=== PATIENT | male | born 1945 | race Caucasian/White ===

== ENCOUNTER 2016-05-13 05:29 | Inpatient (IN) | payer MEDICARE, OTHER ==
[2016-05-02 11:49] LABS: HEMATOCRIT 32.6 % (37.9-51.0); HEMOGLOBIN 10.2 g/dL (13.5-17.0); MEAN CORPUSCULAR HEMOGLOBIN 27.6 pg (27.0-33.4); MEAN CORPUSCULAR HGB CONC 31.3 g/dL (32.0-36.0); MEAN CORPUSCULAR VOLUME 88 fl (80-97); RED BLOOD COUNT 3.68 10^6/uL (4.35-5.55); RED CELL DISTRIBUTION WIDTH 13.7 % (11.5-14.0); WHITE BLOOD COUNT 7.5 10^3/uL (4.0-10.5)
[2016-05-02 11:55] LABS: APPEARANCE,URINE CLEAR; BILIRUBIN,URINE NEGATIVE (NEGATIVE); GLUCOSE, URINE NEGATIVE (NEGATIVE); KETONES,URINE NEGATIVE (NEGATIVE); LEUKOCYTE ESTERASE,URINE NEGATIVE (NEGATIVE); NITRITE,URINE NEGATIVE (NEGATIVE); PROTEIN,URINE NEGATIVE (NEGATIVE); URINE SPECIFIC GRAVITY 1.013; UROBILINOGEN,URINE NEGATIVE mg/dL (<2.0)
[2016-05-02 12:17] LABS: ANION GAP 12 (5-19); BLOOD UREA NITROGEN 29 mg/dL (7-20); CALCIUM 10.6 mg/dL (8.4-10.2); CARBON DIOXIDE 26 mmol/L (22-30); CHLORIDE 104 mmol/L (98-107); GLUCOSE 87 mg/dL (75-110); POTASSIUM 5.8 mmol/L (3.6-5.0); SODIUM 142.2 mmol/L (137-145)
[~2016-05-13 05:29] MED LIST: BUPIVACAINE INJ/PF LIPOSOME/PF 266 MG/20 ML SDV INFIL PRN; CEFAZOLIN 1 GM/D5W RTU 1 GM/50 ML RTUPB IV PRN; CEFAZOLIN INJ 1 GM VIAL IV PRN; IBUPROFEN 800 MG in NORMAL SALINE 250 ML IV PRN; LACTATED RINGERS 1000 ML IV PRN; LANSOPRAZOLE 15 MG TAB.RAP.DR PO PRN; LIDOCAINE 0.5% INJ-PF (5 MG/ML) 50 ML SDV SUBCUT PRN; OXYCODONE HCL IR 5 MG TABLET PO PRN; OXYCODONE HCL SR 10 MG TABLET PO PRN; SCOPOLAMINE HYDROBROMIDE 1.5 MG PATCH.TD72 TD PRN; VANCOMYCIN HCL 1,000 MG in DEXTROSE 5%-WATER 250 ML IV PRN
[2016-05-13 06:39] LABS: POTASSIUM 5.3 mmol/L (3.6-5.0)
[2016-05-13] MEDS ORDERED: THROMBIN (BOVINE) TOPICAL 20000 UNIT VIAL ONE (06:49)
[2016-05-13] MEDS ORDERED: THROMBIN (BOVINE) 5000 UNIT EPITAXIS KIT ONE (06:49)
[2016-05-13] MEDS ORDERED: BUPIVACAINE INJ/PF LIPOSOME/PF 266 MG/20 ML SDV ONE (06:49)
[2016-05-13] MEDS ORDERED: HYDROMORPHONE HCL INJ/PF 2 MG/ML AMPULE ONE ×2 (06:50→09:52)
[2016-05-13] MEDS ORDERED: FENTANYL CITRATE INJ/PF 250 MCG/5 ML AMPULE ONE (06:50)
[2016-05-13] MEDS ORDERED: MIDAZOLAM 2 MG/2 ML INJ ONE (06:50)
[2016-05-13] MEDS ORDERED: PROPOFOL INJ 200 MG/20 ML VIAL IV ONE (06:51)
[2016-05-13] MEDS ORDERED: VANCOMYCIN HCL INJ 1000 MG VIAL ONE (07:41)
[2016-05-13] MEDS ORDERED: FENTANYL CITRATE INJ/PF 100 MCG/2 ML AMPUL IV PRN ×3 (08:50)
[2016-05-13] MEDS ORDERED: MORPHINE SULFATE 10 MG/ML INJ IV PRN ×3 (08:50→09:11)
[2016-05-13] MEDS ORDERED: DIPHENHYDRAMINE HCL 50 MG/ML VIAL IV PRN ×2 (08:50→09:11)
[2016-05-13] MEDS ORDERED: OXYCODONE-ACETAMINOPHEN 5-325 MG TABLET PO PRN ×2 (08:50)
[2016-05-13] MEDS ORDERED: PROMETHAZINE HCL INJ 25 MG/1 ML VIAL IV PRN (08:50)
[2016-05-13] MEDS ORDERED: MEPERIDINE HCL/PF INJ 25 MG/1 ML DISP.SYRIN IV PRN (08:50)
[2016-05-13] MEDS ORDERED: RINGERS SOLUTION,LACTATED 1,000 ML IV PRN (09:11)
[2016-05-13] MEDS ORDERED: ONDANSETRON 4 MG TAB.RAPDIS PO PRN (09:11)
[2016-05-13] MEDS ORDERED: ZOLPIDEM TARTRATE 5 MG TABLET PO PRN (09:11)
[2016-05-13] MEDS ORDERED: MAG HYDROX/AL HYDROX/SIMETH SUSP 30 ML UDCUP PO PRN (09:11)
[2016-05-13] MEDS ORDERED: ACETAMINOPHEN 325 MG TABLET PO PRN (09:11)
[2016-05-13] MEDS ORDERED: ONDANSETRON HCL INJ/PF 4 MG/2 ML SDV IV PRN (09:11)
--- NOTE | 2016-05-13 09:28 | Operative Report ---
Operative Report DATE OF SURGERY: 05/13/16 PREOPERATIVE DIAGNOSIS: Infected Knee arthroplasty OPERATION: Resection arthroplasty and implantation of antibiotic spacer SURGEON: SUZETTE HOGAN ANESTHESIA: GA TISSUE REMOVED OR ALTERED: Implants to pathology. Tissue to pathology. Cultures 2 to microbiology ESTIMATED BLOOD LOSS: 150 PROCEDURE: With the patient supine operative table the right looks terms prepped and draped in a sterile fashion. A standard midline median parapatellar approach to the knee is taken. An elongated quadriceps snip was performed to lateralize the patella. The polyethylene spacers easily removed using an osteotome. The tibial component is disimpacted using a mallet. The femoral component was loosened using a TPS saw. This removes the femoral condyles with the medullary cone and stem remaining. A TPS saw was then along the edges of the cone to loosen this. Vice mill roll rewinder is then used to retrieve the medullary cone and the femoral stem. There is little if any bone loss on either side of the implant. The existing patellar component is then removed using a TPS saw. At this point the wound is marita irrigated and debrided. A 10 x 270 mm titanium tibial nail is then placed across the knee joint into the femoral canal as well as the tibial canal. This is cemented in place using a combination of tobramycin cement with a gram of vancomycin added. The wound is then closures interrupted PDS followed by flaco. A sterile dressing is applied and the patient's returned to PACU in satisfactory condition
[2016-05-13] MEDS ORDERED: HYDROMORPHONE HCL INJ/PF 2 MG/ML AMPULE IV ONE (09:55)
[2016-05-13] MEDS ORDERED: CINNAMON BARK PO SCH (10:00)
[2016-05-13] MEDS ORDERED: VANCOMYCIN HCL 1,000 MG in DEXTROSE 5%-WATER 250 ML IV SCH (10:00)
[2016-05-13] MEDS ORDERED: RIFAMPIN 300 MG CAPSULE PO ONE (11:00)
[2016-05-13] MEDS: SENNOSIDES/DOCUSATE 8.6-50 MG 1 EACH TABLET PO SCH ×2 (11:17→17:23)
[2016-05-13] MEDS: FERROUS SULFATE 325 MG TABLET PO SCH ×2 (11:17→17:23)
[2016-05-13] MEDS: PREGABALIN 75 MG CAPSULE PO SCH ×2 (11:17→17:23)
[2016-05-13] MEDS: OXYCODONE HCL SR 10 MG TABLET PO SCH ×2 (11:17→21:21)
[2016-05-13] MEDS: PRENATAL VITAMIN W-O CA NO5/FE FUMARATE/FA CAPSULE PO SCH (11:18)
[2016-05-13] MEDS: MORPHINE SULFATE 10 MG/ML INJ IV PRN ×3 (12:05→16:02)
[2016-05-13] MEDS ORDERED: GLYCOPYRROLATE INJ 0.4 MG/2 ML VIAL ONE (12:51)
[2016-05-13] MEDS ORDERED: LIDOCAINE 2% INJ-PF (20 MG/ML) 10 ML AMPUL ONE (12:51)
[2016-05-13] MEDS ORDERED: NEOSTIGMINE METHYLSULFATE 10 MG/10 ML VIAL ONE (12:51)
[2016-05-13] MEDS ORDERED: VECURONIUM BROMIDE INJ 10 MG VIAL IV ONE (12:51)
[2016-05-13] MEDS ORDERED: SUCCINYLCHOLINE CHLORIDE INJ 200 MG/10 ML VIAL ONE (12:51)
[2016-05-13] MEDS ORDERED: ONDANSETRON HCL INJ/PF 4 MG/2 ML SDV ONE (12:51)
[2016-05-13] MEDS ORDERED: PHENYLEPHRINE HCL INJ/PF 10 MG/1 ML SDV ONE (12:51)
[2016-05-13] MEDS: IBUPROFEN 800 MG in NORMAL SALINE 250 ML IV SCH ×2 (13:27→21:54)
[2016-05-13] MEDS: OXYCODONE HCL IR 5 MG TABLET PO PRN (13:27)
[2016-05-13] MEDS: VANCOMYCIN HCL 2,000 MG in DEXTROSE 5%-WATER 500 ML IV SCH (17:23)
[2016-05-13] MEDS: CYCLOBENZAPRINE HCL 10 MG TABLET PO PRN (17:23)
[2016-05-13] MEDS: RIFAMPIN 300 MG CAPSULE PO SCH (17:23)
[2016-05-13] MEDS: FINASTERIDE 5 MG TABLET PO SCH (17:23)
[2016-05-13] MEDS ORDERED: VANCOMYCIN HCL 1,000 MG in DEXTROSE 5%-WATER 250 ML IV ONE (21:11)
[2016-05-13] MEDS: SIMVASTATIN 10 MG TABLET PO SCH (21:23)
[2016-05-13] MEDS: FENOFIBRATE NANOCRYSTALLIZED 145 MG TABLET PO SCH (21:24)
[2016-05-13] MEDS: PRAMIPEXOLE DI-HCL 0.25 MG TABLET PO SCH (21:24)
[2016-05-13] MEDS: TAMSULOSIN HCL 0.4 MG CAP.SR.24H PO SCH (21:25)
[2016-05-14] MEDS: MORPHINE SULFATE 10 MG/ML INJ IV PRN ×4 (04:22→20:33)
[2016-05-14] MEDS: LANSOPRAZOLE 30 MG TAB.RAP.DR PO SCH (06:14)
[2016-05-14 06:50] LABS: HEMATOCRIT 25.2 % (37.9-51.0); HEMOGLOBIN 8.4 g/dL (13.5-17.0); MEAN CORPUSCULAR HEMOGLOBIN 28.7 pg (27.0-33.4); MEAN CORPUSCULAR HGB CONC 33.4 g/dL (32.0-36.0); MEAN CORPUSCULAR VOLUME 86 fl (80-97); RED BLOOD COUNT 2.94 10^6/uL (4.35-5.55); RED CELL DISTRIBUTION WIDTH 13.4 % (11.5-14.0); WHITE BLOOD COUNT 9.2 10^3/uL (4.0-10.5)
[2016-05-14 07:12] LABS: ANION GAP 9 (5-19); BLOOD UREA NITROGEN 32 mg/dL (7-20); CARBON DIOXIDE 25 mmol/L (22-30); CHLORIDE 105 mmol/L (98-107); CREATININE RESULT 1.07 mg/dL (0.52-1.25); GLUCOSE 100 mg/dL (75-110); POTASSIUM 5.1 mmol/L (3.6-5.0); SODIUM 139.1 mmol/L (137-145)
[2016-05-14] MEDS: OXYCODONE HCL IR 5 MG TABLET PO PRN (07:33)
[2016-05-14] MEDS ORDERED: (PENDING PHARMACY ID) (Telmisartan [Micardis 80 Mg Tablet] 80 MG) PO SCH (08:00)
[2016-05-14] MEDS ORDERED: (PENDING PHARMACY ID) (Esomeprazole Mag Trihydrate [Nexium] 40 MG) PO SCH (08:00)
[2016-05-14] MEDS: FUROSEMIDE 40 MG TABLET PO SCH (08:25)
[2016-05-14] MEDS: LEVOTHYROXINE SODIUM 0.05 MG TABLET PO SCH (08:26)
[2016-05-14] MEDS: LOSARTAN POTASSIUM 50 MG TABLET PO SCH (08:26)
[2016-05-14] MEDS: FERROUS SULFATE 325 MG TABLET PO SCH ×2 (09:28→17:45)
[2016-05-14] MEDS: RIFAMPIN 300 MG CAPSULE PO SCH ×2 (09:28→17:45)
[2016-05-14] MEDS: PRENATAL VITAMIN W-O CA NO5/FE FUMARATE/FA CAPSULE PO SCH (09:28)
[2016-05-14] MEDS: ASPIRIN 325 MG TABLET, ENT COATED PO SCH (09:28)
[2016-05-14] MEDS: PREGABALIN 75 MG CAPSULE PO SCH ×2 (09:28→17:44)
[2016-05-14] MEDS: SENNOSIDES/DOCUSATE 8.6-50 MG 1 EACH TABLET PO SCH ×2 (09:28→17:45)
[2016-05-14] MEDS: OXYCODONE HCL SR 10 MG TABLET PO SCH ×2 (09:29→21:13)
[2016-05-14] MEDS: VANCOMYCIN HCL 2,000 MG in DEXTROSE 5%-WATER 500 ML IV SCH ×3 (10:25→23:48)
[2016-05-14] MEDS: IBUPROFEN 800 MG in NORMAL SALINE 250 ML IV SCH ×3 (10:25→21:36)
[2016-05-14] MEDS: MORPHINE SULFATE 10 MG/ML INJ IM PRN (11:18)
[2016-05-14] MEDS: FINASTERIDE 5 MG TABLET PO SCH (17:45)
[2016-05-14] MEDS: FENOFIBRATE NANOCRYSTALLIZED 145 MG TABLET PO SCH (21:13)
[2016-05-14] MEDS: TAMSULOSIN HCL 0.4 MG CAP.SR.24H PO SCH (21:13)
[2016-05-14] MEDS: PRAMIPEXOLE DI-HCL 0.25 MG TABLET PO SCH (21:14)
[2016-05-14] MEDS: SIMVASTATIN 10 MG TABLET PO SCH (21:14)
[2016-05-14] MEDS: NORMAL SALINE 10 ML SDV (SCHEDULED) IV SCH (21:14)
[2016-05-15] MEDS: CYCLOBENZAPRINE HCL 10 MG TABLET PO PRN (04:25)
[2016-05-15] MEDS: IBUPROFEN 800 MG in NORMAL SALINE 250 ML IV SCH ×3 (05:20→21:44)
[2016-05-15] MEDS: LANSOPRAZOLE 30 MG TAB.RAP.DR PO SCH (05:20)
[2016-05-15 06:36] LABS: HGB HCT DIFFERENCE -0.1; MEAN CORPUSCULAR HEMOGLOBIN 28.8 pg (27.0-33.4); MEAN CORPUSCULAR HGB CONC 33.1 g/dL (32.0-36.0); MEAN CORPUSCULAR VOLUME 87 fl (80-97); RED BLOOD COUNT 2.19 10^6/uL (4.35-5.55); RED CELL DISTRIBUTION WIDTH 13.4 % (11.5-14.0); WHITE BLOOD COUNT 7.8 10^3/uL (4.0-10.5)
[2016-05-15] MEDS: MORPHINE SULFATE 10 MG/ML INJ IV PRN ×2 (06:53→14:49)
[2016-05-15 06:56] LABS: HEMOGLOBIN 6.3 g/dL (13.5-17.0)
[2016-05-15] MEDS: SENNOSIDES/DOCUSATE 8.6-50 MG 1 EACH TABLET PO SCH ×2 (09:22→17:21)
[2016-05-15] MEDS: ASPIRIN 325 MG TABLET, ENT COATED PO SCH (09:22)
[2016-05-15] MEDS: FERROUS SULFATE 325 MG TABLET PO SCH ×2 (09:22→17:21)
[2016-05-15] MEDS: PREGABALIN 75 MG CAPSULE PO SCH ×2 (09:22→17:22)
[2016-05-15] MEDS: PRENATAL VITAMIN W-O CA NO5/FE FUMARATE/FA CAPSULE PO SCH (09:22)
[2016-05-15] MEDS: RIFAMPIN 300 MG CAPSULE PO SCH ×2 (09:23→17:22)
[2016-05-15] MEDS: FUROSEMIDE 40 MG TABLET PO SCH (09:29)
[2016-05-15] MEDS: LEVOTHYROXINE SODIUM 0.05 MG TABLET PO SCH (09:30)
[2016-05-15] MEDS: LOSARTAN POTASSIUM 50 MG TABLET PO SCH (09:31)
[2016-05-15] MEDS: NORMAL SALINE 10 ML SDV (SCHEDULED) IV SCH ×2 (09:32→21:44)
[2016-05-15] MEDS: OXYCODONE HCL IR 5 MG TABLET PO PRN ×2 (11:38→19:59)
[2016-05-15] MEDS: VANCOMYCIN HCL 2,000 MG in DEXTROSE 5%-WATER 500 ML IV SCH (12:42)
[2016-05-15 13:01] LABS: CREATININE RESULT 0.96 mg/dL (0.52-1.25)
[2016-05-15 15:06] LABS: FOLATE > 20.00 ng/mL (>2.76)
[2016-05-15] MEDS: FINASTERIDE 5 MG TABLET PO SCH (17:22)
[2016-05-15] MEDS ORDERED: CYANOCOBALAMIN (VITAMIN B-12) 1,000 MCG TABLET PO ONE (19:00)
--- NOTE | 2016-05-15 19:06 | PDOC CONSULTATION ---
Consultation Consult Date: 05/15/16 Attending physician:: SUZETTE HOGAN Consult reason:: Antibiotic management History of Present Illness Admission Date/PCP: 05/13/16 05:29 SHADE GARCÍA MD Patient complains of: Infected prosthesis right knee History of Present Illness: JAYLON GREEN is a 71 year old male With a known history of infected prosthesis right knee underwent on 05/13/2016 resection arthroplasty and implantation of antibiotic spacer Culture and sensitivity of the right knee showed no growth after 2 days Patient in the past had infection of the left knee with MSSA There was no history of prior MRSA infection Hospitalist was consulted for antibiotic management; PICC line was inserted Past Medical History Cardiac Medical History: Reports: Hyperlipidema - meds x 20.5 years, Hypertension - meds x 20 years, Pulmonary Embolism - 02/2015 Denies: Atrial Fibrillation, Congestive Heart Failure, Coronary Artery Disease, Myocardial Infarction, Peripheral Vascular Disease, Heart Murmur Pulmonary Medical History: Reports: Chronic Obstructive Pulmonary Disease (COPD ) - per CXR 05/05/14, Pneumonia - 04/1993 Denies: Asthma, Bronchitis, Respiratory Failure, Sleep Apnea, Tuberculosis Neurological Medical History: Denies: Seizures Endocrine Medical History: Reports: Hypothyroidism - meds x1 year Denies: Hyperthyroidism Renal/ Medical History: Denies: End Stage Renal Disease Malignancy Medical History: Denies: Leukemia, Lung Cancer GI Medical History: Reports: Gastroesophageal Reflux Disease - meds x 10.5 years Denies: Crohn's Disease, Hiatal Hernia Musculoskeltal Medical History: Reports: Arthritis Denies: Fibromyalgia Psychiatric Medical History: Denies: Dementia Hematology: Reports: Anemia - hx blood transfusions, Other - Multiple blood transfusions Denies: Hemophilia, Sickle Cell Disease Infectious Medical History: Denies: HIV Past Surgical History Past Surgical History: Reports: Orthopedic Surgery - bilateral knee replacement , right rotator cuff Denies: Appendectomy, Cholecystectomy, Colostomy, Coronary Artery Bypass Graft, Gastric Bypass Surgery, Herniorrhaphy, Pacemaker, Tonsillectomy Social History Smoking Status: Former Smoker Frequency of Alcohol Use: None Hx Recreational Drug Use: No Drugs: None Hx Prescription Drug Abuse: No - Advance Directive Resuscitation Status: Do Not Resuscitate Surrogate healthcare decision maker:: His Edith Family History Family History: Hypertension Parental Family History Reviewed: Yes - father of old age at 95; mother had asthma Children Family History Reviewed: Yes - Diabetes and hypertension Sibling(s) Family History Reviewed.: Yes - No siblings Medication/Allergy Home Medications: Cyclobenzaprine HCl [Flexeril 10 mg Tablet] 10 mg PO TIDP PRN 08/08/13 Fenofibrate Nanocrystallized [Tricor 145 mg Tablet] 145 mg PO QHS 08/08/13 Gluc [place]/Chondro [place] A/Vit C/Mn [Glucosamine 1,500 Complex Cap] 1 each PO QAM Hydrocodone Bit/Acetaminophen [Hydrocodon-Acetaminophn 10-325] 1 each PO QID PRN 08/08/13 Multivitamin/Iron/Folic Acid [Centrum Complete Multivit Tab] 1 each PO QAM 08/08 Pramipexole Di-HCl [Mirapex 0.25 mg Tablet] 0.25 mg PO QHS 08/08/13 Simvastatin [Zocor 10 mg Tablet] 10 mg PO QHS 08/08/13 Meloxicam [Mobic 15 mg Tablet] 15 mg PO DAILY 03/11/15 Ceftriaxone 2 gm/D5w RTU [Rocephin RTU 2 gm/D5w 50 ml Premix Bag] 2 gm IV Q24H # 45 rtupb 03/15/15 Rifampin [Rimactane] 300 mg PO BID #0 capsule 03/15/15 Tramadol HCl [Ultram] 50 mg PO TID 03/17/15 Telmisartan [Micardis 80 mg Tablet] 80 mg PO QAM 03/18/15 Cyclobenzaprine HCl [Flexeril 10 mg Tablet] 10 mg PO TIDP PRN #30 tablet Esomeprazole Mag Trihydrate [Nexium] 40 mg PO QAM 06/07/15 Furosemide [Lasix] 1 tab PO QAM 07/28/15 Hydrocodone Bit/Acetaminophen [Hydrocodon-Acetaminophn 10-325] 1 - 2 each PO TID PRN 07/28/15 Amox Tr/Potassium Clavulanate [Augmentin 875-125 mg Tablet] 1 tab PO QPM Cinnamon Bark [Cinnamon Bark 500 mg Capsule] 1 cap PO BID 04/30/16 Ferrous Sulfate [Feosol] 325 mg PO BID 04/30/16 Finasteride 5 mg PO QPM 04/30/16 Furosemide [Lasix 40 mg Tablet] 40 mg PO QAM 04/30/16 Levothyroxine Sodium 50 mcg PO QAM 04/30/16 Meloxicam [Mobic 15 mg Tablet] 15 mg PO QAM 04/30/16 Niacin (Inositol Niacinate) [Niacin 500 mg Capsule] 500 mg PO BID 04/30/16 [place]-3S/Dha/Epa/Fish Oil/D3 [Fish Fru-Ojupx-8-Vit D Softgel] 1 each PO QAM Tamsulosin HCl [Flomax] 0.8 mg PO QHS 04/30/16 Tramadol HCl [Ultram] 50 - 100 mg PO TID 04/30/16 Allergies/Adverse Reactions: No Known Allergies Allergy (Verified 03/11/15 21:25) Review of Systems Constitutional: PRESENT: fatigue Eyes: ABSENT: as per HPI, visual disturbances, other Ears: ABSENT: hearing changes Respiratory: ABSENT: cough, hemoptysis Gastrointestinal: ABSENT: abdominal pain, constipation, diarrhea, hematemesis, hematochezia, nausea, vomiting Genitourinary: ABSENT: dysuria, hematuria Musculoskeletal: PRESENT: other - Pain right knee Neurological: ABSENT: abnormal gait, abnormal speech, confusion, dizziness, focal weakness, syncope Psychiatric: ABSENT: anxiety, depression, homidical ideation, suicidal ideation Endocrine: ABSENT: cold intolerance, heat intolerance, polydipsia, polyuria Physical Exam Vital Signs: Temp Pulse Resp BP Pulse Ox 98.1 F 106 H 18 103/71 100 05/15/16 18:20 05/15/16 18:20 05/15/16 18:20 05/15/16 18:20 05/15/16 18:20 Intake & Output 05/14/16 05/15/16 05/16/16 00:59 00:59 00:59 Intake Total 5115 6470 1060 Output Total 5000 5850 3000 Balance 115 093 -6030 General appearance: PRESENT: no acute distress, cooperative Head exam: PRESENT: atraumatic, normocephalic Eye exam: PRESENT: conjunctiva pink, EOMI, PERRLA. ABSENT: scleral icterus Neck exam: ABSENT: carotid bruit, JVD, lymphadenopathy, thyromegaly Respiratory exam: PRESENT: clear to auscultation mark. ABSENT: rales, rhonchi, wheezes Cardiovascular exam: PRESENT: RRR. ABSENT: diastolic murmur, rubs, systolic murmur Pulses: PRESENT: normal dorsalis pedis pul GI/Abdominal exam: PRESENT: normal bowel sounds, soft. ABSENT: distended, guarding, mass, organolmegaly, rebound, tenderness Extremities exam: PRESENT: other - Left lower extremities in not be a long knee immobilizer Neurological exam: PRESENT: alert, awake, oriented to person, oriented to place , oriented to time, oriented to situation, CN II-XII grossly intact. ABSENT: motor sensory deficit Psychiatric exam: PRESENT: appropriate affect, normal mood. ABSENT: homicidal ideation, suicidal ideation Results Laboratory Results: 05/15/16 06:00 05/15/16 12:11 05/13/16 05/15/16 05/15/16 06:15 06:00 12:11 WBC 7.8 RBC 2.19 L Hgb 6.3 L D Hct 19.0 L MCV 87 MCH 28.8 MCHC 33.1 RDW 13.4 Plt Count 335 Creatinine 0.96 Est GFR ( Amer) > 60 Est GFR (Non-Af Amer) > 60 Iron TIBC % Saturation Ferritin Vitamin B12 Folate Blood Type O POSITIVE Antibody Screen NEGATIVE 05/15/16 12:11 WBC RBC Hgb Hct MCV MCH MCHC RDW Plt Count Creatinine Est GFR ( Amer) Est GFR (Non-Af Amer) Iron 20 L TIBC 222 L % Saturation 9 Ferritin 1700.00 H Vitamin B12 319.0 Folate > 20.00 Blood Type Antibody Screen Impressions: Knee X-Ray 05/13/16 09:13 IMPRESSION: Post hardware removal from the right knee, placement of a small caliber intramedullary nail which fuses the right knee joint. Diffuse heterotopic ossification around the knee joint periphery, periosteal new bone along the distal femur and proximal tibia. Guidance Fluoroscopy 05/14/16 00:00 IMPRESSION: SUCCESSFUL PLACEMENT OF A 5 FR DUAL LUMEN 47 CM PICC IN THE left basilic VEIN. Interventional Vascular Procedure 05/14/16 00:00 IMPRESSION: SUCCESSFUL PLACEMENT OF A 5 FR DUAL LUMEN 47 CM PICC IN THE left basilic VEIN. PICC Line Insertion 05/14/16 07:29 IMPRESSION: SUCCESSFUL PLACEMENT OF A 5 FR DUAL LUMEN 47 CM PICC IN THE left basilic VEIN. Assessment & Plan - Diagnosis (1) Sideroblastic anemia Is this a current diagnosis for this admission?: YesPlan: Serum ferritin is [address] Leonardo to consult Dr. Leonardo has been involved with patient Patient's care in the past (2) Vitamin B 12 deficiency Plan: Vitamin B-12 level is 312 We will initiate treatment with vitamin B-12 thousand micrograms daily (3) Infected prosthetic knee joint Is this a current diagnosis for this admission?: YesPlan: There is no evidence of an MRSA infection at this time Cultures were negative We spoke with infectious disease at [facility] and they do recommend treatment for MSSA We will initiate treatment with ceftriaxone 2 g IV piggyback daily (4) Acute blood loss anemia Is this a current diagnosis for this admission?: YesPlan: Patient was transfused 2 units of packed red cells follow-up CBC in a.m. - Time Time Spent with patient: Thank you for the consultation we will follow with you Hematology consult was requested Time Spent: 50 to 70 Minutes
[2016-05-15] MEDS: FENOFIBRATE NANOCRYSTALLIZED 145 MG TABLET PO SCH (21:44)
[2016-05-15] MEDS: SIMVASTATIN 10 MG TABLET PO SCH (21:44)
[2016-05-15] MEDS: TAMSULOSIN HCL 0.4 MG CAP.SR.24H PO SCH (21:44)
[2016-05-15] MEDS: PRAMIPEXOLE DI-HCL 0.25 MG TABLET PO SCH (21:44)
[2016-05-15 21:46] LABS: ABSOLUTE BASOPHILS # (AUTO) 0.1 10^3/uL (0.0-0.2); ABSOLUTE LYMPHOCYTES (AUTO) 1.4 10^3/uL (0.5-4.7); ABSOLUTE MONOCYTES (AUTO) 1.3 10^3/uL (0.1-1.4); ABSOLUTE NEUT (AUTO) 5.7 10^3/uL (1.7-8.2); BASOPHILS % (AUTO) 0.8 % (0-2); EOSINOPHILS % (AUTO) 10.5 % (0-6); HEMATOCRIT 26.2 % (37.9-51.0); HGB HCT DIFFERENCE 0.5; LYMPHOCYTES % (AUTO) 14.6 % (13-45); MEAN CORPUSCULAR HGB CONC 33.9 g/dL (32.0-36.0); MEAN CORPUSCULAR VOLUME 86 fl (80-97); RED BLOOD COUNT 3.06 10^6/uL (4.35-5.55); RED CELL DISTRIBUTION WIDTH 13.1 % (11.5-14.0); SEGMENTED NEUTROPHILS % (AUTO) 60.1 % (42-78); WHITE BLOOD COUNT 9.5 10^3/uL (4.0-10.5)
[2016-05-15 21:57] LABS: HEMOGLOBIN 8.9 g/dL (13.5-17.0)
[2016-05-16] MEDS: IBUPROFEN 800 MG in NORMAL SALINE 250 ML IV SCH (05:39)
[2016-05-16] MEDS: LANSOPRAZOLE 30 MG TAB.RAP.DR PO SCH (05:39)
[2016-05-16 06:28] LABS: HEMATOCRIT 26.8 % (37.9-51.0); HGB HCT DIFFERENCE 0.2; MEAN CORPUSCULAR HGB CONC 33.7 g/dL (32.0-36.0); MEAN CORPUSCULAR VOLUME 86 fl (80-97); RED BLOOD COUNT 3.11 10^6/uL (4.35-5.55); RED CELL DISTRIBUTION WIDTH 13.3 % (11.5-14.0); WHITE BLOOD COUNT 9.8 10^3/uL (4.0-10.5)
--- NOTE | 2016-05-16 06:49 | PDOC PROGRESS REPORT ---
Subjective Progress Note for:: 05/16/16 Subjective:: Patient complaints of pain associated with motion Physical Exam Vital Signs: Temp Pulse Resp BP Pulse Ox 36.8 C 100 17 112/67 99 05/16/16 04:54 05/16/16 04:54 05/16/16 04:54 05/16/16 04:54 05/16/16 04:54 Intake & Output 05/14/16 05/15/16 05/16/16 06:59 06:59 06:59 Intake Total 7015 4570 2110 Output Total 6900 4750 3100 Balance 115 -180 -990 Weight 136.4 kg General appearance: PRESENT: mild distress Head exam: PRESENT: normocephalic Eye exam: PRESENT: EOMI Respiratory exam: PRESENT: unlabored Cardiovascular exam: PRESENT: RRR Pulses: PRESENT: +1 pedal pulses bilateral Vascular exam: PRESENT: normal capillary refill GI/Abdominal exam: PRESENT: soft Rectal exam: PRESENT: deferred Extremities exam: PRESENT: other - Dressing was changed yesterday. Remains clean dry and intact. Distal neurovascular examination the foot is intact. Neurological exam: PRESENT: alert, awake, oriented to person, oriented to place , oriented to time, oriented to situation, CN II-XII grossly intact. ABSENT: motor sensory deficit Psychiatric exam: PRESENT: appropriate affect, normal mood. ABSENT: homicidal ideation, suicidal ideation Results Laboratory Results: 05/16/16 05:30 05/15/16 12:11 05/13/16 05/15/16 05/15/16 06:15 06:00 12:11 WBC 7.8 RBC 2.19 L Hgb 6.3 L D Hct 19.0 L MCV 87 MCH 28.8 MCHC 33.1 RDW 13.4 Plt Count 335 Seg Neutrophils % Lymphocytes % Monocytes % Eosinophils % Basophils % Absolute Neutrophils Absolute Lymphocytes Absolute Monocytes Absolute Eosinophils Absolute Basophils Creatinine 0.96 Est GFR ( Amer) > 60 Est GFR (Non-Af Amer) > 60 Iron TIBC % Saturation Ferritin Vitamin B12 Folate Blood Type O POSITIVE Antibody Screen NEGATIVE 05/15/16 05/15/16 05/16/16 12:11 21:00 05:30 WBC 9.5 9.8 RBC 3.06 L 3.11 L Hgb 8.9 L D 9.0 L Hct 26.2 L 26.8 L MCV 86 86 MCH 29.0 29.0 MCHC 33.9 33.7 RDW 13.1 13.3 Plt Count 398 434 Seg Neutrophils % 60.1 Lymphocytes % 14.6 Monocytes % 14.0 H Eosinophils % 10.5 H Basophils % 0.8 Absolute Neutrophils 5.7 Absolute Lymphocytes 1.4 Absolute Monocytes 1.3 Absolute Eosinophils 1.0 H Absolute Basophils 0.1 Creatinine Est GFR ( Amer) Est GFR (Non-Af Amer) Iron 20 L TIBC 222 L % Saturation 9 Ferritin 1700.00 H Vitamin B12 319.0 Folate > 20.00 Blood Type Antibody Screen Impressions: Knee X-Ray 05/13/16 09:13 IMPRESSION: Post hardware removal from the right knee, placement of a small caliber intramedullary nail which fuses the right knee joint. Diffuse heterotopic ossification around the knee joint periphery, periosteal new bone along the distal femur and proximal tibia. Guidance Fluoroscopy 05/14/16 00:00 IMPRESSION: SUCCESSFUL PLACEMENT OF A 5 FR DUAL LUMEN 47 CM PICC IN THE left basilic VEIN. Interventional Vascular Procedure 05/14/16 00:00 IMPRESSION: SUCCESSFUL PLACEMENT OF A 5 FR DUAL LUMEN 47 CM PICC IN THE left basilic VEIN. PICC Line Insertion 05/14/16 07:29 IMPRESSION: SUCCESSFUL PLACEMENT OF A 5 FR DUAL LUMEN 47 CM PICC IN THE left basilic VEIN. Assessment & Plan - Diagnosis (1) Infected prosthetic knee joint Qualifiers: Encounter type: subsequent encounter Qualified Code(s): T84.59XD - Infection and inflammatory reaction due to other internal joint prosthesis, subsequent encounter; Z96.659 - Presence of unspecified artificial knee joint Is this a current diagnosis for this admission?: YesPlan: 71-year-old white male status post resection arthroplasty of a right knee for a periprosthetic knee infection. Current cultures remain negative, but the patient had a draining sinus tracts so. There is little doubt my mind that this was a periprosthetic knee infection. Appreciate Dr. Amaro and put regarding antibiotic management. Anticipate 6 weeks of IV antibiotic therapy followed by retesting. Plan will be to mobilize today on a touchdown weightbearing restriction. This is been communicated with the patient directly and he says he is ready - Time Time Spent with patient: 15-24 minutes Anticipated discharge: Home with Homehealth Within: within 72 hours
[2016-05-16] MEDS: MORPHINE SULFATE 10 MG/ML INJ IV PRN ×3 (09:26→22:27)
[2016-05-16] MEDS: NORMAL SALINE 10 ML SDV (SCHEDULED) IV SCH ×2 (09:27→21:19)
[2016-05-16] MEDS: LOSARTAN POTASSIUM 50 MG TABLET PO SCH (09:27)
[2016-05-16] MEDS ORDERED: ACETAMINOPHEN 325 MG TABLET PO PRN (09:28)
[2016-05-16] MEDS: PREGABALIN 75 MG CAPSULE PO SCH ×2 (09:28→17:20)
[2016-05-16] MEDS: SENNOSIDES/DOCUSATE 8.6-50 MG 1 EACH TABLET PO SCH ×2 (09:28→17:20)
[2016-05-16] MEDS: LEVOTHYROXINE SODIUM 0.05 MG TABLET PO SCH (09:28)
[2016-05-16] MEDS: PRENATAL VITAMIN W-O CA NO5/FE FUMARATE/FA CAPSULE PO SCH (09:28)
[2016-05-16] MEDS ORDERED: DIPHENHYDRAMINE HCL 50 MG/ML VIAL IV PRN (09:29)
[2016-05-16] MEDS: ASPIRIN 325 MG TABLET, ENT COATED PO SCH (09:29)
[2016-05-16] MEDS: FUROSEMIDE 40 MG TABLET PO SCH (09:29)
[2016-05-16] MEDS: CYANOCOBALAMIN (VITAMIN B-12) 1,000 MCG TABLET PO SCH (09:29)
[2016-05-16] MEDS ORDERED: IRON DEXTRAN COMPLEX 25 MG in NORMAL SALINE 100 ML IV ONE (11:00)
[2016-05-16] MEDS ORDERED: IRON DEXTRAN COMPLEX 975 MG in NORMAL SALINE 500 ML IV ONE (11:30)
--- NOTE | 2016-05-16 11:35 | EKG REPORT ---
SEVERITY:- NORMAL ECG - SINUS RHYTHM : Confirmed by: Wilfredo Finney 16-May-2016 11:34:46
[2016-05-16] MEDS: OXYCODONE HCL IR 5 MG TABLET PO PRN ×2 (11:58→21:20)
[2016-05-16] MEDS: CYCLOBENZAPRINE HCL 10 MG TABLET PO PRN (14:43)
--- NOTE | 2016-05-16 16:45 | PDOC PROGRESS REPORT ---
Subjective Progress Note for:: 05/16/16 Subjective:: Patient today he did work some with physical therapy and was able to stand ; his pain is more manageable Ceftriaxone has been initiated Gram stain of left knee shows gram-positive cocci Identification and sensitivity are pending; we will encourage the patient to remain in the hospital until the reports are available Physical Exam Vital Signs: Temp Pulse Resp BP Pulse Ox 98.2 F 105 H 18 130/65 H 100 05/16/16 16:19 05/16/16 16:19 05/16/16 16:19 05/16/16 16:19 05/16/16 16:19 Intake & Output 05/15/16 05/16/16 05/17/16 00:59 00:59 00:59 Intake Total 6470 1510 620 Output Total 5850 3600 300 Balance 620 -2090 320 Weight 136.4 kg General appearance: PRESENT: no acute distress, well-developed, well-nourished, other - Overweight ; Pale; chronically ill-looking Head exam: PRESENT: atraumatic, normocephalic Eye exam: PRESENT: conjunctiva pink, EOMI, PERRLA. ABSENT: scleral icterus Ear exam: PRESENT: normal external ear exam Mouth exam: PRESENT: moist, tongue midline Neck exam: ABSENT: carotid bruit, JVD, lymphadenopathy, thyromegaly Respiratory exam: PRESENT: clear to auscultation mark. ABSENT: rales, rhonchi, wheezes Cardiovascular exam: PRESENT: RRR. ABSENT: diastolic murmur, rubs, systolic murmur Pulses: PRESENT: normal dorsalis pedis pul Vascular exam: PRESENT: normal capillary refill GI/Abdominal exam: PRESENT: normal bowel sounds, soft. ABSENT: distended, guarding, mass, organolmegaly, rebound, tenderness Rectal exam: PRESENT: deferred Extremities exam: PRESENT: full ROM, other - Right lower extremity in a long knee immobilizer. ABSENT: calf tenderness, clubbing, pedal edema Neurological exam: PRESENT: alert, awake, oriented to person, oriented to place , oriented to time, oriented to situation, CN II-XII grossly intact. ABSENT: motor sensory deficit Psychiatric exam: PRESENT: appropriate affect, normal mood. ABSENT: homicidal ideation, suicidal ideation Skin exam: PRESENT: dry, intact, warm. ABSENT: cyanosis, rash Results Laboratory Results: 05/16/16 05:30 05/15/16 12:11 05/13/16 05/15/16 05/16/16 06:15 21:00 05:30 WBC 9.5 9.8 RBC 3.06 L 3.11 L Hgb 8.9 L D 9.0 L Hct 26.2 L 26.8 L MCV 86 86 MCH 29.0 29.0 MCHC 33.9 33.7 RDW 13.1 13.3 Plt Count 398 434 Seg Neutrophils % 60.1 Lymphocytes % 14.6 Monocytes % 14.0 H Eosinophils % 10.5 H Basophils % 0.8 Absolute Neutrophils 5.7 Absolute Lymphocytes 1.4 Absolute Monocytes 1.3 Absolute Eosinophils 1.0 H Absolute Basophils 0.1 Blood Type O POSITIVE Antibody Screen NEGATIVE Impressions: Knee X-Ray 05/13/16 09:13 IMPRESSION: Post hardware removal from the right knee, placement of a small caliber intramedullary nail which fuses the right knee joint. Diffuse heterotopic ossification around the knee joint periphery, periosteal new bone along the distal femur and proximal tibia. Guidance Fluoroscopy 05/14/16 00:00 IMPRESSION: SUCCESSFUL PLACEMENT OF A 5 FR DUAL LUMEN 47 CM PICC IN THE left basilic VEIN. Interventional Vascular Procedure 05/14/16 00:00 IMPRESSION: SUCCESSFUL PLACEMENT OF A 5 FR DUAL LUMEN 47 CM PICC IN THE left basilic VEIN. PICC Line Insertion 05/14/16 07:29 IMPRESSION: SUCCESSFUL PLACEMENT OF A 5 FR DUAL LUMEN 47 CM PICC IN THE left basilic VEIN. Assessment & Plan - Diagnosis (2) Infected prosthetic knee joint Is this a current diagnosis for this admission?: Yes (3) Acute blood loss anemia Is this a current diagnosis for this admission?: Yes (4) Iron deficiency anemia Qualifiers: Iron deficiency anemia type: chronic blood loss Qualified Code(s): D50.0 - Iron deficiency anemia secondary to blood loss (chronic) Is this a current diagnosis for this admission?: YesPlan: Patient was evaluated by Dr. Leonardo will feels that the high ferritin is just secondary to acute and chronic inflammation Dr. Leonardo feels that the patient is iron deficient with low iron and TIBC Patient will be treated with IV iron And followed up in the office Repeat H&H is improved after transfusion We will repeat labs in a.m. - Time Time Spent with patient: Continue the present management Continue Rocephin until results of culture of the right knee at joint is available Gram-positive cocci were isolated in the second culture Time Spent with patient: 25-34 minutes
[2016-05-16] MEDS: FINASTERIDE 5 MG TABLET PO SCH (17:20)
--- NOTE | 2016-05-16 18:14 | PDOC CONSULTATION ---
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 Culture and sensitivity of the right knee showed no growth after 2 days Patient in the past had infection of the left knee with MSSA. Post op he has had a worsening anemia and was transfused 2 units of PRBC's. He has had worsening iron stores as well and B12 that's borderline. Dr. Hui started him on B12 Past Medical History Cardiac Medical History: Reports: Hyperlipidema - meds x 20.5 years, Hypertension - meds x 20 years, Pulmonary Embolism - 02/2015 Denies: Atrial Fibrillation, Congestive Heart Failure, Coronary Artery Disease, Myocardial Infarction, Peripheral Vascular Disease, Heart Murmur Pulmonary Medical History: Reports: Chronic Obstructive Pulmonary Disease (COPD ) - per CXR 05/05/14, Pneumonia - 04/1993 Denies: Asthma, Bronchitis, Respiratory Failure, Sleep Apnea, Tuberculosis EENT Medical History: Reports: Other - Multiple blood transfusions Neurological Medical History: Denies: Seizures Endocrine Medical History: Reports: Hypothyroidism - meds x1 year Denies: Hyperthyroidism Renal/ Medical History: Denies: End Stage Renal Disease Malignancy Medical History: Denies: Leukemia, Lung Cancer GI Medical History: Reports: Gastroesophageal Reflux Disease - meds x 10.5 years Denies: Crohn's Disease, Hiatal Hernia Musculoskeltal Medical History: Reports: Arthritis Denies: Fibromyalgia Psychiatric Medical History: Denies: Dementia Hematology: Reports: Anemia - hx blood transfusions, Other - Multiple blood transfusions IgG monoclonal gammopathy Denies: Hemophilia, Sickle Cell Disease Infectious Medical History: Denies: HIV Past Surgical History Past Surgical History: Reports: Orthopedic Surgery - bilateral knee replacement , right rotator cuff Denies: Appendectomy, Cholecystectomy, Colostomy, Coronary Artery Bypass Graft, Gastric Bypass Surgery, Herniorrhaphy, Pacemaker, Tonsillectomy Social History Smoking Status: Former Smoker Frequency of Alcohol Use: None Hx Recreational Drug Use: No Drugs: None Hx Prescription Drug Abuse: No - Advance Directive Resuscitation Status: Do Not Resuscitate Family History Family History: Hypertension Parental Family History Reviewed: Yes Children Family History Reviewed: Yes Sibling(s) Family History Reviewed.: Yes Medication/Allergy Home Medications: Cyclobenzaprine HCl [Flexeril 10 mg Tablet] 10 mg PO TIDP PRN 08/08/13 Fenofibrate Nanocrystallized [Tricor 145 mg Tablet] 145 mg PO QHS 08/08/13 Gluc [place]/Chondro [place] A/Vit C/Mn [Glucosamine 1,500 Complex Cap] 1 each PO QAM Hydrocodone Bit/Acetaminophen [Hydrocodon-Acetaminophn 10-325] 1 each PO QID PRN 08/08/13 Multivitamin/Iron/Folic Acid [Centrum Complete Multivit Tab] 1 each PO QAM 08/08 Pramipexole Di-HCl [Mirapex 0.25 mg Tablet] 0.25 mg PO QHS 08/08/13 Simvastatin [Zocor 10 mg Tablet] 10 mg PO QHS 08/08/13 Meloxicam [Mobic 15 mg Tablet] 15 mg PO DAILY 03/11/15 Ceftriaxone 2 gm/D5w RTU [Rocephin RTU 2 gm/D5w 50 ml Premix Bag] 2 gm IV Q24H # 45 rtupb 03/15/15 Rifampin [Rimactane] 300 mg PO BID #0 capsule 03/15/15 Tramadol HCl [Ultram] 50 mg PO TID 03/17/15 Telmisartan [Micardis 80 mg Tablet] 80 mg PO QAM 03/18/15 Cyclobenzaprine HCl [Flexeril 10 mg Tablet] 10 mg PO TIDP PRN #30 tablet Esomeprazole Mag Trihydrate [Nexium] 40 mg PO QAM 06/07/15 Furosemide [Lasix] 1 tab PO QAM 07/28/15 Hydrocodone Bit/Acetaminophen [Hydrocodon-Acetaminophn 10-325] 1 - 2 each PO TID PRN 07/28/15 Cinnamon Bark [Cinnamon Bark 500 mg Capsule] 1 cap PO BID 04/30/16 Finasteride 5 mg PO QPM 04/30/16 Furosemide [Lasix 40 mg Tablet] 40 mg PO QAM 04/30/16 Levothyroxine Sodium 50 mcg PO QAM 04/30/16 Meloxicam [Mobic 15 mg Tablet] 15 mg PO QAM 04/30/16 Niacin (Inositol Niacinate) [Niacin 500 mg Capsule] 500 mg PO BID 04/30/16 [place]-3S/Dha/Epa/Fish Oil/D3 [Fish Xtk-Smfoa-1-Vit D Softgel] 1 each PO QAM Tamsulosin HCl [Flomax] 0.8 mg PO QHS 04/30/16 Tramadol HCl [Ultram] 50 - 100 mg PO TID 04/30/16 Ceftriaxone 2 gm/D5w RTU [Rocephin RTU 2 gm/D5w 50 ml Premix Bag] 2 gm IV DAILY #42 rtupb 05/16/16 Cyanocobalamin (Vitamin B-12) [Vitamin B-12 1000 mcg Tablet] 1,000 mcg PO DAILY #30 tablet 05/16/16 Allergies/Adverse Reactions: No Known Allergies Allergy (Verified 03/11/15 21:25) Review of Systems Constitutional: PRESENT: weakness Hematologic/Lymphatic: PRESENT: as per HPI Physical Exam Vital Signs: Temp Pulse Resp BP Pulse Ox 98.2 F 105 H 18 130/65 H 100 05/16/16 16:19 05/16/16 16:19 05/16/16 16:19 05/16/16 16:19 05/16/16 16:19 Intake & Output 05/15/16 05/16/16 05/17/16 06:59 06:59 06:59 Intake Total 4570 2110 20 Output Total 4750 3100 Balance -180 -990 20 Weight 136.4 kg General appearance: PRESENT: no acute distress Head exam: PRESENT: normocephalic Eye exam: PRESENT: conjunctiva pale, EOMI, PERRLA Ear exam: PRESENT: normal external ear exam Mouth exam: PRESENT: moist Respiratory exam: PRESENT: clear to auscultation mark Cardiovascular exam: PRESENT: RRR GI/Abdominal exam: PRESENT: normal bowel sounds, soft Extremities exam: PRESENT: other - Left Knee s/p surgery, Right with surgical bandage and brace Neurological exam: PRESENT: alert, oriented to person, oriented to place, oriented to time, oriented to situation Psychiatric exam: PRESENT: appropriate affect Results Laboratory Results: 05/16/16 05:30 05/15/16 12:11 05/13/16 05/15/16 05/16/16 06:15 21:00 05:30 WBC 9.5 9.8 RBC 3.06 L 3.11 L Hgb 8.9 L D 9.0 L Hct 26.2 L 26.8 L MCV 86 86 MCH 29.0 29.0 MCHC 33.9 33.7 RDW 13.1 13.3 Plt Count 398 434 Seg Neutrophils % 60.1 Lymphocytes % 14.6 Monocytes % 14.0 H Eosinophils % 10.5 H Basophils % 0.8 Absolute Neutrophils 5.7 Absolute Lymphocytes 1.4 Absolute Monocytes 1.3 Absolute Eosinophils 1.0 H Absolute Basophils 0.1 Blood Type O POSITIVE Antibody Screen NEGATIVE Impressions: Knee X-Ray 05/13/16 09:13 IMPRESSION: Post hardware removal from the right knee, placement of a small caliber intramedullary nail which fuses the right knee joint. Diffuse heterotopic ossification around the knee joint periphery, periosteal new bone along the distal femur and proximal tibia. Guidance Fluoroscopy 05/14/16 00:00 IMPRESSION: SUCCESSFUL PLACEMENT OF A 5 FR DUAL LUMEN 47 CM PICC IN THE left basilic VEIN. Interventional Vascular Procedure 05/14/16 00:00 IMPRESSION: SUCCESSFUL PLACEMENT OF A 5 FR DUAL LUMEN 47 CM PICC IN THE left basilic VEIN. PICC Line Insertion 05/14/16 07:29 IMPRESSION: SUCCESSFUL PLACEMENT OF A 5 FR DUAL LUMEN 47 CM PICC IN THE left basilic VEIN. Assessment & Plan - Diagnosis (1) Infected prosthetic knee joint Qualifiers: Encounter type: subsequent encounter Qualified Code(s): T84.59XD - Infection and inflammatory reaction due to other internal joint prosthesis, subsequent encounter; Z96.659 - Presence of unspecified artificial knee joint Is this a current diagnosis for this admission?: YesPlan: Currently on antibiotics per Medicine and ID (2) Iron deficiency anemia Qualifiers: Iron deficiency anemia type: chronic blood loss Qualified Code(s): D50.0 - Iron deficiency anemia secondary to blood loss (chronic) Is this a current diagnosis for this admission?: YesPlan: Will treat with IV iron in addition to his B12. Follow up on his MGUS. Feel that the ferritin is an acute phase reactant as other labs indicate iron deficiency (3) Vitamin B 12 deficiency Plan: Treated orally per Dr. Hui - Time Time Spent: 50 to 70 Minutes Critical Time spent with patient: 25-34 minutes Medications reviewed and adjusted accordingly: Yes Anticipated discharge: Home with Homehealth - Inpatient Certification Medical Necessity: Need Close Monitoring Due to Risk of Patient Decompensation
[2016-05-16] MEDS: TAMSULOSIN HCL 0.4 MG CAP.SR.24H PO SCH (21:19)
[2016-05-16] MEDS: FENOFIBRATE NANOCRYSTALLIZED 145 MG TABLET PO SCH (21:19)
[2016-05-16] MEDS: PRAMIPEXOLE DI-HCL 0.25 MG TABLET PO SCH (21:19)
[2016-05-16] MEDS: SIMVASTATIN 10 MG TABLET PO SCH (21:19)
[2016-05-17] MEDS: MORPHINE SULFATE 10 MG/ML INJ IV PRN ×4 (04:32→20:45)
[2016-05-17] MEDS: LANSOPRAZOLE 30 MG TAB.RAP.DR PO SCH (05:05)
[2016-05-17] MEDS: FUROSEMIDE 40 MG TABLET PO SCH (08:35)
[2016-05-17] MEDS: LEVOTHYROXINE SODIUM 0.05 MG TABLET PO SCH (08:35)
[2016-05-17] MEDS: LOSARTAN POTASSIUM 50 MG TABLET PO SCH (08:36)
[2016-05-17 08:53] LABS: CERULOPLASMIN 35.1 mg/dL (16.0-31.0)
[2016-05-17] MEDS: CYANOCOBALAMIN (VITAMIN B-12) 1,000 MCG TABLET PO SCH (10:27)
[2016-05-17] MEDS: SENNOSIDES/DOCUSATE 8.6-50 MG 1 EACH TABLET PO SCH ×2 (10:27→17:19)
[2016-05-17] MEDS: PREGABALIN 75 MG CAPSULE PO SCH ×2 (10:27→17:19)
[2016-05-17] MEDS: ASPIRIN 325 MG TABLET, ENT COATED PO SCH (10:27)
[2016-05-17] MEDS: OXYCODONE HCL SR 40 MG TABLET PO SCH ×2 (10:28→22:21)
[2016-05-17] MEDS: NORMAL SALINE 10 ML SDV (SCHEDULED) IV SCH ×2 (10:29→22:20)
[2016-05-17] MEDS: PRENATAL VITAMIN W-O CA NO5/FE FUMARATE/FA CAPSULE PO SCH (11:27)
[2016-05-17] MEDS: CYCLOBENZAPRINE HCL 10 MG TABLET PO PRN (12:56)
[2016-05-17] MEDS: MORPHINE SULFATE 10 MG/ML INJ IM PRN ×2 (14:41→19:53)
[2016-05-17] MEDS: OXYCODONE HCL IR 5 MG TABLET PO PRN (16:09)
[2016-05-17] MEDS: FINASTERIDE 5 MG TABLET PO SCH (17:19)
--- NOTE | 2016-05-17 18:08 | PDOC PROGRESS REPORT ---
Subjective Progress Note for:: 05/17/16 Subjective:: Patient is feeling better Pain is quite severe that he is able to sit, and is working with physical therapy to bear weight Cultures are still pending Physical Exam Vital Signs: Temp Pulse Resp BP Pulse Ox 98.5 F 105 H 14 131/70 H 98 05/17/16 15:09 05/17/16 15:09 05/17/16 15:09 05/17/16 15:09 05/17/16 15:09 Intake & Output 05/16/16 05/17/16 05/18/16 00:59 00:59 00:59 Intake Total 1510 1420 185 Output Total 3600 700 550 Balance -2090 720 -365 Weight 136.4 kg 136.4 kg General appearance: PRESENT: no acute distress, well-developed, well-nourished Head exam: PRESENT: atraumatic, normocephalic Eye exam: PRESENT: conjunctiva pink, EOMI, PERRLA. ABSENT: scleral icterus Ear exam: PRESENT: normal external ear exam Mouth exam: PRESENT: moist, tongue midline Neck exam: ABSENT: carotid bruit, JVD, lymphadenopathy, thyromegaly Respiratory exam: PRESENT: clear to auscultation mark. ABSENT: rales, rhonchi, wheezes Cardiovascular exam: PRESENT: RRR. ABSENT: diastolic murmur, rubs, systolic murmur Pulses: PRESENT: normal dorsalis pedis pul Vascular exam: PRESENT: normal capillary refill GI/Abdominal exam: PRESENT: normal bowel sounds, soft. ABSENT: distended, guarding, mass, organolmegaly, rebound, tenderness Rectal exam: PRESENT: deferred Extremities exam: PRESENT: full ROM, other - Right lower extremity extremely swollen in long knee immobilizer. ABSENT: calf tenderness, clubbing, pedal edema Neurological exam: PRESENT: alert, awake, oriented to person, oriented to place , oriented to time, oriented to situation, CN II-XII grossly intact. ABSENT: motor sensory deficit Psychiatric exam: PRESENT: appropriate affect, normal mood. ABSENT: homicidal ideation, suicidal ideation Skin exam: PRESENT: dry, intact, warm. ABSENT: cyanosis, rash Results Laboratory Results: 05/16/16 05:30 05/15/16 12:11 05/13/16 08:08 Knee - Joint Gram Stain - Final Impressions: Knee X-Ray 05/13/16 09:13 IMPRESSION: Post hardware removal from the right knee, placement of a small caliber intramedullary nail which fuses the right knee joint. Diffuse heterotopic ossification around the knee joint periphery, periosteal new bone along the distal femur and proximal tibia. Guidance Fluoroscopy 05/14/16 00:00 IMPRESSION: SUCCESSFUL PLACEMENT OF A 5 FR DUAL LUMEN 47 CM PICC IN THE left basilic VEIN. Interventional Vascular Procedure 05/14/16 00:00 IMPRESSION: SUCCESSFUL PLACEMENT OF A 5 FR DUAL LUMEN 47 CM PICC IN THE left basilic VEIN. PICC Line Insertion 05/14/16 07:29 IMPRESSION: SUCCESSFUL PLACEMENT OF A 5 FR DUAL LUMEN 47 CM PICC IN THE left basilic VEIN. Assessment & Plan - Diagnosis (2) Infected prosthetic knee joint Is this a current diagnosis for this admission?: Yes (3) Acute blood loss anemia Is this a current diagnosis for this admission?: Yes (4) Iron deficiency anemia Qualifiers: Iron deficiency anemia type: chronic blood loss Qualified Code(s): D50.0 - Iron deficiency anemia secondary to blood loss (chronic) Is this a current diagnosis for this admission?: Yes - Time Time Spent with patient: 25-34 minutes - Continue the present management awaiting culture and sensitivity of the knee joint
--- NOTE | 2016-05-17 18:28 | PDOC PROGRESS REPORT ---
Subjective Progress Note for:: 05/17/16 Subjective:: Still some discomfort in his right knee but wants to get up and move around. Physical Exam Vital Signs: Temp Pulse Resp BP Pulse Ox 98.5 F 105 H 12 144/67 H 98 05/17/16 18:00 05/17/16 18:00 05/17/16 18:00 05/17/16 18:00 05/17/16 18:00 Intake & Output 05/16/16 05/17/16 05/18/16 06:59 06:59 06:59 Intake Total 2110 1005 Output Total 3100 700 250 Balance -990 305 -250 Weight 136.4 kg 136.4 kg General appearance: PRESENT: no acute distress Head exam: PRESENT: normocephalic Eye exam: PRESENT: conjunctiva pale, EOMI, PERRLA Ear exam: PRESENT: normal external ear exam Mouth exam: PRESENT: tongue midline Respiratory exam: PRESENT: clear to auscultation mark Cardiovascular exam: PRESENT: RRR Extremities exam: PRESENT: other - Right knee with surgical changes Neurological exam: PRESENT: alert, oriented to person, oriented to place, oriented to situation Results Laboratory Results: 05/16/16 05:30 05/15/16 12:11 05/13/16 08:08 Knee - Joint Gram Stain - Final Impressions: Knee X-Ray 05/13/16 09:13 IMPRESSION: Post hardware removal from the right knee, placement of a small caliber intramedullary nail which fuses the right knee joint. Diffuse heterotopic ossification around the knee joint periphery, periosteal new bone along the distal femur and proximal tibia. Guidance Fluoroscopy 05/14/16 00:00 IMPRESSION: SUCCESSFUL PLACEMENT OF A 5 FR DUAL LUMEN 47 CM PICC IN THE left basilic VEIN. Interventional Vascular Procedure 05/14/16 00:00 IMPRESSION: SUCCESSFUL PLACEMENT OF A 5 FR DUAL LUMEN 47 CM PICC IN THE left basilic VEIN. PICC Line Insertion 05/14/16 07:29 IMPRESSION: SUCCESSFUL PLACEMENT OF A 5 FR DUAL LUMEN 47 CM PICC IN THE left basilic VEIN. Assessment & Plan - Diagnosis (1) Infected prosthetic knee joint Qualifiers: Encounter type: subsequent encounter Qualified Code(s): T84.59XD - Infection and inflammatory reaction due to other internal joint prosthesis, subsequent encounter; Z96.659 - Presence of unspecified artificial knee joint Is this a current diagnosis for this admission?: YesPlan: Currently on antibiotics per Medicine and ID. Hopefully home soon with home PT (2) Iron deficiency anemia Qualifiers: Iron deficiency anemia type: chronic blood loss Qualified Code(s): D50.0 - Iron deficiency anemia secondary to blood loss (chronic) Is this a current diagnosis for this admission?: YesPlan: Have treated with IV iron in addition to his B12. Follow up on his MGUS. Feel that the ferritin is an acute phase reactant as other labs indicate iron deficiency (3) Vitamin B 12 deficiency Plan: Treated orally per Dr. Hui - Time Time Spent with patient: 15-24 minutes Anticipated discharge: Home with Homehealth
[2016-05-17] MEDS: NORMAL SALINE 10 ML SDV (AFTER EACH USE) IV PRN (20:45)
[2016-05-17] MEDS: TAMSULOSIN HCL 0.4 MG CAP.SR.24H PO SCH (22:20)
[2016-05-17] MEDS: SIMVASTATIN 10 MG TABLET PO SCH (22:20)
[2016-05-17] MEDS: FENOFIBRATE NANOCRYSTALLIZED 145 MG TABLET PO SCH (22:20)
[2016-05-17] MEDS: PRAMIPEXOLE DI-HCL 0.25 MG TABLET PO SCH (22:21)
[2016-05-18] MEDS: MORPHINE SULFATE 10 MG/ML INJ IV PRN ×5 (00:03→16:03)
[2016-05-18] MEDS: NORMAL SALINE 10 ML SDV (AFTER EACH USE) IV PRN ×3 (00:03→20:43)
[2016-05-18] MEDS: MORPHINE SULFATE 10 MG/ML INJ IM PRN ×4 (01:41→20:07)
[2016-05-18] MEDS: LANSOPRAZOLE 30 MG TAB.RAP.DR PO SCH (06:22)
[2016-05-18] MEDS: FUROSEMIDE 40 MG TABLET PO SCH (08:04)
[2016-05-18] MEDS: LEVOTHYROXINE SODIUM 0.05 MG TABLET PO SCH (08:04)
[2016-05-18] MEDS: LOSARTAN POTASSIUM 50 MG TABLET PO SCH (08:05)
[2016-05-18] MEDS: ASPIRIN 325 MG TABLET, ENT COATED PO SCH (09:56)
[2016-05-18] MEDS: CYANOCOBALAMIN (VITAMIN B-12) 1,000 MCG TABLET PO SCH (09:56)
[2016-05-18] MEDS: OXYCODONE HCL SR 40 MG TABLET PO SCH ×2 (09:56→22:25)
[2016-05-18] MEDS: PRENATAL VITAMIN W-O CA NO5/FE FUMARATE/FA CAPSULE PO SCH (09:56)
[2016-05-18] MEDS: SENNOSIDES/DOCUSATE 8.6-50 MG 1 EACH TABLET PO SCH ×2 (09:56→17:50)
[2016-05-18] MEDS: PREGABALIN 75 MG CAPSULE PO SCH ×2 (09:56→17:50)
[2016-05-18] MEDS: NORMAL SALINE 10 ML SDV (SCHEDULED) IV SCH ×2 (09:58→22:24)
[2016-05-18] MEDS ORDERED: VANCOMYCIN HCL 0 MG in DEXTROSE 5%-WATER 250 ML IV NR (14:15)
--- NOTE | 2016-05-18 15:52 | PDOC PROGRESS REPORT ---
Subjective Progress Note for:: 05/18/16 Subjective:: Patient states doing well Pain in left knee is decreased no fever or chills Physical Exam Vital Signs: Temp Pulse Resp BP Pulse Ox 98.1 F 104 H 16 169/77 H 97 05/18/16 09:35 05/18/16 09:35 05/18/16 09:35 05/18/16 09:35 05/18/16 09:35 Intake & Output 05/17/16 05/18/16 05/19/16 00:59 00:59 00:59 Intake Total 1420 1857 300 Output Total 700 2350 175 Balance 720 -493 125 Weight 136.4 kg 136.4 kg 136 kg General appearance: PRESENT: no acute distress, well-developed, well-nourished Head exam: PRESENT: atraumatic, normocephalic Eye exam: PRESENT: conjunctiva pink, EOMI, PERRLA. ABSENT: scleral icterus Ear exam: PRESENT: normal external ear exam Mouth exam: PRESENT: moist, tongue midline Neck exam: ABSENT: carotid bruit, JVD, lymphadenopathy, thyromegaly Respiratory exam: PRESENT: clear to auscultation mark. ABSENT: rales, rhonchi, wheezes Cardiovascular exam: PRESENT: RRR. ABSENT: diastolic murmur, rubs, systolic murmur Pulses: PRESENT: normal dorsalis pedis pul Vascular exam: PRESENT: normal capillary refill GI/Abdominal exam: PRESENT: normal bowel sounds, soft. ABSENT: distended, guarding, mass, organolmegaly, rebound, tenderness Rectal exam: PRESENT: deferred Extremities exam: PRESENT: full ROM, other - left knee swollen , immobilised in long knee immobilizer. ABSENT: calf tenderness, clubbing, pedal edema Neurological exam: PRESENT: alert, awake, oriented to person, oriented to place , oriented to time, oriented to situation, CN II-XII grossly intact. ABSENT: motor sensory deficit Psychiatric exam: PRESENT: appropriate affect, normal mood. ABSENT: homicidal ideation, suicidal ideation Skin exam: PRESENT: dry, intact, warm. ABSENT: cyanosis, rash Results Laboratory Results: 05/16/16 05:30 05/15/16 12:11 05/13/16 08:08 Knee - Joint Gram Stain - Final Impressions: Knee X-Ray 05/13/16 09:13 IMPRESSION: Post hardware removal from the right knee, placement of a small caliber intramedullary nail which fuses the right knee joint. Diffuse heterotopic ossification around the knee joint periphery, periosteal new bone along the distal femur and proximal tibia. Guidance Fluoroscopy 05/14/16 00:00 IMPRESSION: SUCCESSFUL PLACEMENT OF A 5 FR DUAL LUMEN 47 CM PICC IN THE left basilic VEIN. Interventional Vascular Procedure 05/14/16 00:00 IMPRESSION: SUCCESSFUL PLACEMENT OF A 5 FR DUAL LUMEN 47 CM PICC IN THE left basilic VEIN. PICC Line Insertion 05/14/16 07:29 IMPRESSION: SUCCESSFUL PLACEMENT OF A 5 FR DUAL LUMEN 47 CM PICC IN THE left basilic VEIN. Assessment & Plan - Diagnosis (2) Infected prosthetic knee joint Is this a current diagnosis for this admission?: YesPlan: 1 culture grew enterococcus second culture pending change antibiotics to Vancomycin (3) Acute blood loss anemia Is this a current diagnosis for this admission?: YesPlan: repeat H/H in am (4) Iron deficiency anemia Qualifiers: Iron deficiency anemia type: chronic blood loss Qualified Code(s): D50.0 - Iron deficiency anemia secondary to blood loss (chronic) Is this a current diagnosis for this admission?: Yes - Time Time Spent with patient: 25-34 minutes
[2016-05-18] MEDS: VANCOMYCIN HCL 2,000 MG in DEXTROSE 5%-WATER 500 ML IV SCH (17:49)
[2016-05-18] MEDS: FINASTERIDE 5 MG TABLET PO SCH (17:50)
[2016-05-18] MEDS: OXYCODONE HCL IR 5 MG TABLET PO PRN (17:54)
[2016-05-18] MEDS: FENOFIBRATE NANOCRYSTALLIZED 145 MG TABLET PO SCH (22:24)
[2016-05-18] MEDS: SIMVASTATIN 10 MG TABLET PO SCH (22:24)
[2016-05-18] MEDS: PRAMIPEXOLE DI-HCL 0.25 MG TABLET PO SCH (22:24)
[2016-05-18] MEDS: TAMSULOSIN HCL 0.4 MG CAP.SR.24H PO SCH (22:24)
[2016-05-19] MEDS: LANSOPRAZOLE 30 MG TAB.RAP.DR PO SCH (05:01)
[2016-05-19] MEDS: VANCOMYCIN HCL 2,000 MG in DEXTROSE 5%-WATER 500 ML IV SCH ×2 (05:01→17:01)
[2016-05-19 06:39] LABS: HEMATOCRIT 26.8 % (37.9-51.0); HGB HCT DIFFERENCE 0.2; MEAN CORPUSCULAR HEMOGLOBIN 29.1 pg (27.0-33.4); MEAN CORPUSCULAR HGB CONC 33.5 g/dL (32.0-36.0); MEAN CORPUSCULAR VOLUME 87 fl (80-97); RED BLOOD COUNT 3.09 10^6/uL (4.35-5.55); RED CELL DISTRIBUTION WIDTH 13.4 % (11.5-14.0); WHITE BLOOD COUNT 9.6 10^3/uL (4.0-10.5)
[2016-05-19 06:46] LABS: ANION GAP 8 (5-19); BLOOD UREA NITROGEN 27 mg/dL (7-20); CALCIUM 9.5 mg/dL (8.4-10.2); CARBON DIOXIDE 27 mmol/L (22-30); CHLORIDE 103 mmol/L (98-107); CREATININE RESULT 0.95 mg/dL (0.52-1.25); GLUCOSE 92 mg/dL (75-110); POTASSIUM 4.7 mmol/L (3.6-5.0); SODIUM 137.9 mmol/L (137-145)
[2016-05-19 07:03] LABS: BAND NEUTROPHILS % (MANUAL) 2 % (3-5); BASOPHILS % (MANUAL) 2 % (0-2); EOSINOPHILS % (MANUAL) 15 % (0-6); LYMPHOCYTES % (MANUAL) 17 % (13-45); TOTAL CELLS COUNTED 100
[2016-05-19 07:04] LABS: PLATELET CLUMPS PRESENT; RBC MORPHOLOGY COMMENT NORMO-CYTIC/CHROMIC
[2016-05-19] MEDS: MORPHINE SULFATE 10 MG/ML INJ IV PRN ×3 (08:39→15:55)
[2016-05-19] MEDS: LEVOTHYROXINE SODIUM 0.05 MG TABLET PO SCH (08:40)
[2016-05-19] MEDS: LOSARTAN POTASSIUM 50 MG TABLET PO SCH (08:40)
[2016-05-19] MEDS: FUROSEMIDE 40 MG TABLET PO SCH (08:40)
[2016-05-19] MEDS: OXYCODONE HCL SR 40 MG TABLET PO SCH ×2 (10:07→22:13)
[2016-05-19] MEDS: NORMAL SALINE 10 ML SDV (SCHEDULED) IV SCH ×2 (10:08→22:13)
[2016-05-19] MEDS: CYANOCOBALAMIN (VITAMIN B-12) 1,000 MCG TABLET PO SCH (10:08)
[2016-05-19] MEDS: ASPIRIN 325 MG TABLET, ENT COATED PO SCH (10:08)
[2016-05-19] MEDS: PRENATAL VITAMIN W-O CA NO5/FE FUMARATE/FA CAPSULE PO SCH (10:08)
[2016-05-19] MEDS: SENNOSIDES/DOCUSATE 8.6-50 MG 1 EACH TABLET PO SCH ×2 (10:09→17:02)
[2016-05-19] MEDS: PREGABALIN 75 MG CAPSULE PO SCH ×2 (10:10→17:02)
[2016-05-19] MEDS: MORPHINE SULFATE 10 MG/ML INJ IM PRN ×2 (11:05→18:54)
[2016-05-19] MEDS: OXYCODONE HCL IR 5 MG TABLET PO PRN (14:48)
--- NOTE | 2016-05-19 15:19 | PDOC PROGRESS REPORT ---
Subjective Progress Note for:: 05/19/16 Subjective:: Patient is doing well states the pain is less intense He is able to stand with physical therapy Has no fever no chills Culture of her right knee joint came back enterococcus durans sensitive to vancomycin Physical Exam Vital Signs: Temp Pulse Resp BP Pulse Ox 98.3 F 103 H 18 114/69 99 05/19/16 12:00 05/19/16 12:00 05/19/16 12:00 05/19/16 12:00 05/19/16 12:00 Intake & Output 05/18/16 05/19/16 05/20/16 00:59 00:59 00:59 Intake Total 1857 2450 1723 Output Total 2350 1725 1560 Balance -493 725 163 Weight 136.4 kg 136 kg General appearance: PRESENT: no acute distress, well-developed, well-nourished Head exam: PRESENT: atraumatic, normocephalic Eye exam: PRESENT: conjunctiva pink, EOMI, PERRLA. ABSENT: scleral icterus Ear exam: PRESENT: normal external ear exam Mouth exam: PRESENT: moist, tongue midline Neck exam: ABSENT: carotid bruit, JVD, lymphadenopathy, thyromegaly Respiratory exam: PRESENT: clear to auscultation mark. ABSENT: rales, rhonchi, wheezes Cardiovascular exam: PRESENT: RRR. ABSENT: diastolic murmur, rubs, systolic murmur Pulses: PRESENT: normal dorsalis pedis pul Vascular exam: PRESENT: normal capillary refill GI/Abdominal exam: PRESENT: normal bowel sounds, soft. ABSENT: distended, guarding, mass, organolmegaly, rebound, tenderness Rectal exam: PRESENT: deferred Extremities exam: PRESENT: full ROM, other - Right lower extremity in a long knee immobilizer. ABSENT: calf tenderness, clubbing, pedal edema Neurological exam: PRESENT: alert, awake, oriented to person, oriented to place , oriented to time, oriented to situation, CN II-XII grossly intact. ABSENT: motor sensory deficit Psychiatric exam: PRESENT: appropriate affect, normal mood. ABSENT: homicidal ideation, suicidal ideation Skin exam: PRESENT: dry, intact, warm. ABSENT: cyanosis, rash Results Laboratory Results: 05/19/16 05:00 05/19/16 05:00 05/19/16 05/19/16 05:00 05:00 WBC 9.6 RBC 3.09 L Hgb 9.0 L Hct 26.8 L MCV 87 MCH 29.1 MCHC 33.5 RDW 13.4 Plt Count 488 H Seg Neutrophils % Not Reportable Lymphocytes % Not Reportable Monocytes % Not Reportable Eosinophils % Not Reportable Basophils % Not Reportable Absolute Neutrophils Not Reportable Absolute Lymphocytes Not Reportable Absolute Monocytes Not Reportable Absolute Eosinophils Not Reportable Absolute Basophils Not Reportable Sodium 137.9 Potassium 4.7 Chloride 103 Carbon Dioxide 27 Anion Gap 8 BUN 27 H Creatinine 0.95 Est GFR ( Amer) > 60 Est GFR (Non-Af Amer) > 60 Glucose 92 Calcium 9.5 05/13/16 08:08 Knee - Joint Gram Stain - Final Impressions: Knee X-Ray 05/13/16 09:13 IMPRESSION: Post hardware removal from the right knee, placement of a small caliber intramedullary nail which fuses the right knee joint. Diffuse heterotopic ossification around the knee joint periphery, periosteal new bone along the distal femur and proximal tibia. Guidance Fluoroscopy 05/14/16 00:00 IMPRESSION: SUCCESSFUL PLACEMENT OF A 5 FR DUAL LUMEN 47 CM PICC IN THE left basilic VEIN. Interventional Vascular Procedure 05/14/16 00:00 IMPRESSION: SUCCESSFUL PLACEMENT OF A 5 FR DUAL LUMEN 47 CM PICC IN THE left basilic VEIN. PICC Line Insertion 05/14/16 07:29 IMPRESSION: SUCCESSFUL PLACEMENT OF A 5 FR DUAL LUMEN 47 CM PICC IN THE left basilic VEIN. Assessment & Plan - Diagnosis (2) Infected prosthetic knee joint Is this a current diagnosis for this admission?: Yes (3) Acute blood loss anemia Is this a current diagnosis for this admission?: Yes (4) Iron deficiency anemia Qualifiers: Iron deficiency anemia type: chronic blood loss Qualified Code(s): D50.0 - Iron deficiency anemia secondary to blood loss (chronic) Is this a current diagnosis for this admission?: Yes (5) Enterococcal infection Is this a current diagnosis for this admission?: YesPlan: [facility] with vancomycin 6 weeks - Time Time Spent with patient: We will discharge patient in a.m. if okay with orthopedics on 6 weeks of vancomycin IV Time Spent with patient: 25-34 minutes
[2016-05-19] MEDS: FINASTERIDE 5 MG TABLET PO SCH (17:02)
[2016-05-19] MEDS: FENOFIBRATE NANOCRYSTALLIZED 145 MG TABLET PO SCH (22:12)
[2016-05-19] MEDS: SIMVASTATIN 10 MG TABLET PO SCH (22:13)
[2016-05-19] MEDS: PRAMIPEXOLE DI-HCL 0.25 MG TABLET PO SCH (22:13)
[2016-05-19] MEDS: TAMSULOSIN HCL 0.4 MG CAP.SR.24H PO SCH (22:14)
[2016-05-20] MEDS: OXYCODONE HCL IR 5 MG TABLET PO PRN ×3 (00:26→16:36)
[2016-05-20] MEDS: VANCOMYCIN HCL 2,000 MG in DEXTROSE 5%-WATER 500 ML IV SCH (05:52)
[2016-05-20] MEDS: LANSOPRAZOLE 30 MG TAB.RAP.DR PO SCH (05:52)
[2016-05-20 06:28] LABS: CREATININE RESULT 0.94 mg/dL (0.52-1.25)
[2016-05-20] MEDS: LOSARTAN POTASSIUM 50 MG TABLET PO SCH (07:38)
[2016-05-20] MEDS: MORPHINE SULFATE 10 MG/ML INJ IV PRN (07:39)
[2016-05-20] MEDS: LEVOTHYROXINE SODIUM 0.05 MG TABLET PO SCH (07:39)
[2016-05-20] MEDS: FUROSEMIDE 40 MG TABLET PO SCH (07:39)
[2016-05-20] MEDS: ASPIRIN 325 MG TABLET, ENT COATED PO SCH (09:38)
[2016-05-20] MEDS: OXYCODONE HCL SR 40 MG TABLET PO SCH (09:38)
[2016-05-20] MEDS: PREGABALIN 75 MG CAPSULE PO SCH ×2 (09:39→17:51)
[2016-05-20] MEDS: CYANOCOBALAMIN (VITAMIN B-12) 1,000 MCG TABLET PO SCH (09:39)
[2016-05-20] MEDS: PRENATAL VITAMIN W-O CA NO5/FE FUMARATE/FA CAPSULE PO SCH (09:39)
[2016-05-20] MEDS: SENNOSIDES/DOCUSATE 8.6-50 MG 1 EACH TABLET PO SCH ×2 (09:39→17:51)
[2016-05-20] MEDS: NORMAL SALINE 10 ML SDV (SCHEDULED) IV SCH (09:40)
[2016-05-20 16:24] VITALS: BP 139/68
[2016-05-20] MEDS: FINASTERIDE 5 MG TABLET PO SCH (17:52)
[2016-05-20] MEDS ORDERED: AMPICILLIN SODIUM/SULBACTAM NA 1.5 GM in NORMAL SALINE 50 ML IV SCH (18:00)
[2016-05-20] MEDS: NORMAL SALINE 10 ML SDV (AFTER EACH USE) IV PRN (18:45)
--- NOTE | 2016-05-20 20:46 | PDOC PROGRESS REPORT ---
Subjective Progress Note for:: 05/20/16 Subjective:: Patient is doing extremely well and is awaiting discharge Physical Exam Vital Signs: Temp Pulse Resp BP Pulse Ox 98.7 F 55 L 18 139/68 H 96 05/20/16 16:00 05/20/16 16:00 05/20/16 16:00 05/20/16 16:00 05/20/16 16:00 Intake & Output 05/19/16 05/20/16 05/21/16 00:59 00:59 00:59 Intake Total 2450 3306 1850 Output Total 1725 2450 1800 Balance 725 856 50 Weight 136 kg General appearance: PRESENT: no acute distress, well-developed, well-nourished Head exam: PRESENT: atraumatic, normocephalic Eye exam: PRESENT: conjunctiva pink, EOMI, PERRLA. ABSENT: scleral icterus Ear exam: PRESENT: normal external ear exam Mouth exam: PRESENT: moist, tongue midline Neck exam: ABSENT: carotid bruit, JVD, lymphadenopathy, thyromegaly Respiratory exam: PRESENT: clear to auscultation mark. ABSENT: rales, rhonchi, wheezes Cardiovascular exam: PRESENT: RRR. ABSENT: diastolic murmur, rubs, systolic murmur Pulses: PRESENT: normal dorsalis pedis pul Vascular exam: PRESENT: normal capillary refill GI/Abdominal exam: PRESENT: normal bowel sounds, soft. ABSENT: distended, guarding, mass, organolmegaly, rebound, tenderness Rectal exam: PRESENT: deferred Extremities exam: PRESENT: full ROM, other - Right knee is very swollen no redness or drainage. ABSENT: calf tenderness, clubbing, pedal edema Neurological exam: PRESENT: alert, awake, oriented to person, oriented to place , oriented to time, oriented to situation, CN II-XII grossly intact. ABSENT: motor sensory deficit Psychiatric exam: PRESENT: appropriate affect, normal mood. ABSENT: homicidal ideation, suicidal ideation Skin exam: PRESENT: dry, intact, warm. ABSENT: cyanosis, rash Results Laboratory Results: 05/19/16 05:00 05/20/16 05:45 05/20/16 05:45 Creatinine 0.94 Est GFR ( Amer) > 60 Est GFR (Non-Af Amer) > 60 05/13/16 08:06 Knee - Joint Gram Stain - Final 05/13/16 08:06 Knee - Joint Wound Culture - Final Enterococcus Durans (Group D) No Anaerobic Organisms 05/13/16 08:08 Knee - Joint Gram Stain - Final 05/13/16 08:08 Knee - Joint Wound Culture - Final Enterococcus Durans (Group D) No Anaerobic Organisms Impressions: Knee X-Ray 05/13/16 09:13 IMPRESSION: Post hardware removal from the right knee, placement of a small caliber intramedullary nail which fuses the right knee joint. Diffuse heterotopic ossification around the knee joint periphery, periosteal new bone along the distal femur and proximal tibia. Guidance Fluoroscopy 05/14/16 00:00 IMPRESSION: SUCCESSFUL PLACEMENT OF A 5 FR DUAL LUMEN 47 CM PICC IN THE left basilic VEIN. Interventional Vascular Procedure 05/14/16 00:00 IMPRESSION: SUCCESSFUL PLACEMENT OF A 5 FR DUAL LUMEN 47 CM PICC IN THE left basilic VEIN. PICC Line Insertion 05/14/16 07:29 IMPRESSION: SUCCESSFUL PLACEMENT OF A 5 FR DUAL LUMEN 47 CM PICC IN THE left basilic VEIN. Assessment & Plan - Diagnosis (2) Infected prosthetic knee joint Is this a current diagnosis for this admission?: Yes (3) Acute blood loss anemia Is this a current diagnosis for this admission?: Yes (4) Iron deficiency anemia Qualifiers: Iron deficiency anemia type: chronic blood loss Qualified Code(s): D50.0 - Iron deficiency anemia secondary to blood loss (chronic) Is this a current diagnosis for this admission?: Yes (5) Enterococcal infection Is this a current diagnosis for this admission?: YesPlan: Patient will be discharged on vancomycin 2 g every 12 Discussed at length with the pharmacist choice Unasyn would be extremely difficult to administer at home as is given every 6 hours Patient will have blood tests twice a week for BUN/creatinine and weekly trough levels - Time Time Spent with patient: Patient will be discharged today if okay with Dr. Calhoun He is to follow-up with Dr. Calhoun as scheduled Time Spent with patient: 25-34 minutes
== END 2016-05-20 19:04 | disposition home health service (06) | DRG 464 ==
LOC: INOR 05:29 → 4S 10:51
PROVIDERS: ADMIT Orthopaedic Surgery; ATTEND Orthopaedic Surgery
PROC: 0QHG06Z Insertion of Intramedullary Internal Fixation Device into Right Tibia, Open Approach (ICD-10-PCS; 2016-05-13)
PROC: 0SHC08Z Insertion of Spacer into Right Knee Joint, Open Approach (ICD-10-PCS; 2016-05-13)
PROC: 0SPC0JZ Removal of Synthetic Substitute from Right Knee Joint, Open Approach (ICD-10-PCS; principal; 2016-05-13 07:30)
PROC: 02HV33Z Insertion of Infusion Device into Superior Vena Cava, Percutaneous Approach (ICD-10-PCS; 2016-05-14)
PROC: B5181ZA Fluoroscopy of Superior Vena Cava using Low Osmolar Contrast, Guidance (ICD-10-PCS; 2016-05-14)
PROC: B548ZZA Ultrasonography of Superior Vena Cava, Guidance (ICD-10-PCS; 2016-05-14)
DX: T84.53XA Infection and inflammatory reaction due to internal right knee prosthesis, initial encounter (principal); B95.2 Enterococcus as the cause of diseases classified elsewhere; D62 Acute posthemorrhagic anemia; D64.3 Other sideroblastic anemias; E53.8 Deficiency of other specified B group vitamins; M19.90 Unspecified osteoarthritis, unspecified site; E78.5 Hyperlipidemia, unspecified; I10 Essential (primary) hypertension; N40.0 Benign prostatic hyperplasia without lower urinary tract symptoms; J44.9 Chronic obstructive pulmonary disease, unspecified; K21.9 Gastro-esophageal reflux disease without esophagitis; E66.9 Obesity, unspecified; Z68.35 Body mass index [BMI] 35.0-35.9, adult; E11.9 Type 2 diabetes mellitus without complications; E03.9 Hypothyroidism, unspecified; G25.81 Restless legs syndrome; Z79.899 Other long term (current) drug therapy; Z86.711 Personal history of pulmonary embolism; Z87.891 Personal history of nicotine dependence
CPT/HCPCS: 01402; 36415; 36430; 36569; 76937; 77001; 80048; 80202; 81001; 82390; 82525; 82565; 82607; 82728; 82746; 82947; 83540; 83550; 84132; 85025; 85027; 86850; 86900; 86901; 86920; 87070; 87075; 87077; 87186; 87205; 88305; 88311; 93005; 93010; 94799; C9290; G8978-GP; G8979-GP; J0330; J0690; J1170; J1642; J1741; J1750; J2250; J2270; J2370; J2405; J2704; J3010; J3370; J3490; J7040; J7050; J7060; J7120; L1830; P9016

== ENCOUNTER → 2016-06-25 | Outpatient (CLI) | payer MEDICARE, OTHER ==
[2016-06-25 16:02] LABS: HEMATOCRIT 31.3 % (37.9-51.0); HEMOGLOBIN 10.2 g/dL (13.5-17.0); HGB HCT DIFFERENCE -0.7; MEAN CORPUSCULAR HEMOGLOBIN 28.6 pg (27.0-33.4); MEAN CORPUSCULAR HGB CONC 32.6 g/dL (32.0-36.0); MEAN CORPUSCULAR VOLUME 88 fl (80-97); RED BLOOD COUNT 3.56 10^6/uL (4.35-5.55); RED CELL DISTRIBUTION WIDTH 14.9 % (11.5-14.0); WHITE BLOOD COUNT 6.4 10^3/uL (4.0-10.5)
[2016-06-25 16:26] LABS: ANION GAP 7 (5-19); BLOOD UREA NITROGEN 21 mg/dL (7-20); C-REACTIVE PROTEIN 10.1 mg/L (<10.0); CALCIUM 10.5 mg/dL (8.4-10.2); CARBON DIOXIDE 29 mmol/L (22-30); CHLORIDE 105 mmol/L (98-107); CREATININE RESULT 1.19 mg/dL (0.52-1.25); GLUCOSE 75 mg/dL (75-110); POTASSIUM 4.7 mmol/L (3.6-5.0); SODIUM 141.3 mmol/L (137-145)
[2016-06-25 16:29] LABS: BAND NEUTROPHILS % (MANUAL) 1 % (3-5); BASOPHILS % (MANUAL) 1 % (0-2); EOSINOPHILS % (MANUAL) 11 % (0-6); LYMPHOCYTES % (MANUAL) 26 % (13-45); TOTAL CELLS COUNTED 100
[2016-06-25 16:32] LABS: ANISOCYTOSIS SLIGHT
[2016-06-25 16:46] LABS: ERYTHROCYTE SEDIMENTATION RATE 35 mm/hr (0-20)
== END ==
LOC: OD 15:12
PROVIDERS: ATTEND Orthopaedic Surgery
DX: Z01.818 Encounter for other preprocedural examination (principal); Z01.89 Encounter for other specified special examinations
CPT/HCPCS: 36415; 71020; 80048; 85025; 85652; 86140

== ENCOUNTER → 2016-07-03 | Outpatient (CLI) | payer MEDICARE, OTHER ==
[2016-07-03 10:51] LABS: APPEARANCE,URINE CLEAR; BILIRUBIN,URINE NEGATIVE (NEGATIVE); GLUCOSE, URINE NEGATIVE (NEGATIVE); KETONES,URINE NEGATIVE (NEGATIVE); LEUKOCYTE ESTERASE,URINE NEGATIVE (NEGATIVE); NITRITE,URINE NEGATIVE (NEGATIVE); PROTEIN,URINE NEGATIVE (NEGATIVE); URINE SPECIFIC GRAVITY 1.005; UROBILINOGEN,URINE NEGATIVE mg/dL (<2.0)
--- NOTE | 2016-07-03 13:53 | EKG REPORT ---
SEVERITY:- OTHERWISE NORMAL ECG - SINUS TACHYCARDIA : Confirmed by: Emeka Garcia MD 03-Jul-2016 13:52:27
== END ==
LOC: OD 09:54
PROVIDERS: ATTEND Orthopaedic Surgery
DX: Z01.810 Encounter for preprocedural cardiovascular examination (principal); Z01.818 Encounter for other preprocedural examination; Z01.89 Encounter for other specified special examinations; Z01.811 Encounter for preprocedural respiratory examination
CPT/HCPCS: 81001; 93005; 93010

== ENCOUNTER 2016-07-15 08:58 | Inpatient (IN) | payer MEDICARE, OTHER ==
[~2016-07-15 08:58] MED LIST changes: +BUPIVACAINE INJ/PF LIPOSOME/PF 266 MG/20 ML SDV IJ PRN; -BUPIVACAINE INJ/PF LIPOSOME/PF 266 MG/20 ML SDV INFIL PRN; -CEFAZOLIN 1 GM/D5W RTU 1 GM/50 ML RTUPB IV PRN; +GLYCOPYRROLATE INJ 0.4 MG/2 ML VIAL ONE; -IBUPROFEN 800 MG in NORMAL SALINE 250 ML IV PRN; +IBUPROFEN 800 MG/NS 250 ML IV PRN; -LACTATED RINGERS 1000 ML IV PRN; +LIDOCAINE 2% INJ-PF (20 MG/ML) 10 ML AMPUL ONE; +METOCLOPRAMIDE HCL INJ/PF 10 MG/2 ML SDV ONE; +NEOSTIGMINE METHYLSULFATE 10 MG/10 ML VIAL ONE; +ONDANSETRON HCL INJ/PF 4 MG/2 ML SDV ONE; -OXYCODONE HCL IR 5 MG TABLET PO PRN; +RINGERS SOLUTION,LACTATED 1,000 ML IV PRN; +ROCURONIUM BROMIDE INJ 50 MG/5 ML VIAL IV ONE; -SCOPOLAMINE HYDROBROMIDE 1.5 MG PATCH.TD72 TD PRN; +SCOPOLAMINE HYDROBROMIDE 1.5 MG PATCH.TD72 TOP PRN; +SUCCINYLCHOLINE CHLORIDE INJ 200 MG/10 ML VIAL ONE
[2016-07-15] MEDS ORDERED: MORPHINE SULFATE 10 MG/ML INJ IV PRN ×3 (10:05→14:14)
[2016-07-15] MEDS ORDERED: DIPHENHYDRAMINE HCL 50 MG/ML VIAL IV PRN (10:05)
[2016-07-15] MEDS ORDERED: MEPERIDINE HCL/PF INJ 25 MG/1 ML DISP.SYRIN IV PRN (10:05)
[2016-07-15] MEDS ORDERED: FENTANYL CITRATE INJ/PF 100 MCG/2 ML AMPUL IV PRN ×3 (10:05)
[2016-07-15] MEDS ORDERED: PROMETHAZINE HCL INJ 25 MG/1 ML VIAL IV PRN ×2 (10:05)
[2016-07-15] MEDS ORDERED: OXYCODONE-ACETAMINOPHEN 5-325 MG TABLET PO PRN ×2 (10:05)
[2016-07-15 10:18] LABS: POTASSIUM 4.8 mmol/L (3.6-5.0)
[2016-07-15] MEDS ORDERED: BUPIVACAINE INJ/PF LIPOSOME/PF 266 MG/20 ML SDV ONE (11:13)
[2016-07-15] MEDS ORDERED: THROMBIN (BOVINE) TOPICAL 20000 UNIT VIAL ONE (11:13)
[2016-07-15] MEDS ORDERED: THROMBIN (BOVINE) TOPICAL 5000 UNIT VIAL ONE (11:13)
[2016-07-15] MEDS ORDERED: FENTANYL CITRATE INJ/PF 100 MCG/2 ML AMPUL ONE (11:15)
[2016-07-15] MEDS ORDERED: MIDAZOLAM 2 MG/2 ML INJ ONE (11:15)
[2016-07-15] MEDS ORDERED: PROPOFOL INJ 200 MG/20 ML VIAL IV ONE (11:16)
[2016-07-15] MEDS ORDERED: TRANEXAMIC ACID INJ/PF 1,000 MG/10 ML SDV IV ONE ×2 (11:16→15:30)
[2016-07-15] MEDS ORDERED: MORPHINE SULFATE 10 MG/ML INJ ONE (11:38)
[2016-07-15] MEDS ORDERED: FENTANYL CITRATE INJ/PF 250 MCG/5 ML AMPULE ONE (11:38)
[2016-07-15] MEDS: VANCOMYCIN HCL INJ 1000 MG VIAL ONE ×2 (12:37→13:29)
[2016-07-15] MEDS ORDERED: VANCOMYCIN HCL INJ 1000 MG VIAL ONE (13:28)
[2016-07-15] MEDS ORDERED: CYCLOBENZAPRINE HCL 10 MG TABLET PO PRN (14:12)
[2016-07-15] MEDS ORDERED: MAG HYDROX/AL HYDROX/SIMETH SUSP 30 ML UDCUP PO PRN (14:14)
[2016-07-15] MEDS ORDERED: ONDANSETRON HCL INJ/PF 4 MG/2 ML SDV IV PRN (14:14)
[2016-07-15] MEDS ORDERED: RINGERS SOLUTION,LACTATED 1,000 ML IV PRN (14:14)
[2016-07-15] MEDS ORDERED: ACETAMINOPHEN 325 MG TABLET PO PRN (14:14)
[2016-07-15] MEDS ORDERED: ONDANSETRON 4 MG TAB.RAPDIS PO PRN (14:14)
[2016-07-15] MEDS ORDERED: MORPHINE SULFATE 10 MG/ML INJ IM PRN (14:14)
[2016-07-15] MEDS ORDERED: ZOLPIDEM TARTRATE 5 MG TABLET PO PRN (14:14)
--- NOTE | 2016-07-15 14:23 | Operative Report ---
Operative Report DATE OF SURGERY: 07/15/16 PREOPERATIVE DIAGNOSIS: Infected knee arthroplasty status post resection OPERATION: Removal of temporary spacer implantation of revision knee arthroplasty SURGEON: SUZETTE HOGAN ANESTHESIA: GA TISSUE REMOVED OR ALTERED: Tissue to microbiology ESTIMATED BLOOD LOSS: 250 PROCEDURE: Implants used: Kyle mcclure TS #7 femur, #6 tibia, a 14 x 150 mm tibial stem, 18 x 150 mm femoral stem, a femoral augment cone, size 7 and 8. A tibial cone augment sized D, 13 mm TS spacer The patient supine operative table the right lower extremity is prepped and draped in a sterile fashion. The limb was elevated for segmentation tourniquet inflated to 280 torr. A standard midline median parapatellar approach knee is taken as it has been done multiple times in the past. Upon entering the knee capsule. There is some hematogenous type fluid which was sent for culture. Synovium was also sent for culture. The existing cement and an tibial nail temporary spacer easily removed. Soft tissue is dissected to allow mobilization of the distal femur and a proximal tibial and access to the canals. The canals were then reamed to 18 on the femur and 14 on the tibia. Associated cutting jigs were then placed onto these reamers and used 22 distal femoral resections and proximal tibia resections. Both metaphyseal areas are then reamed to accept the augment cones. A trial reduction was then performed with the above implants and this is felt to be adequate. All trial implants were removed. The cones were impacted into the distal femoral metaphysis and the proximal tibial metaphysis. The TS components were then cemented into the cones through the metaphysis to a depth of approximately 100 mm. A 13 mm spacer is impacted. It is deflated. The wounds irrigated with pulsed lavage. It's then closed in layers using interrupted PDS followed by flaco. A sterile compressive dressing and P Kerrie dressing are applied and the patient's returned to the recovery room in satisfactory condition.
[2016-07-15] MEDS: FENOFIBRATE NANOCRYSTALLIZED 145 MG TABLET PO SCH (16:57)
[2016-07-15] MEDS: CALCIUM CARBONATE 500 MG TABLET PO SCH (16:57)
[2016-07-15] MEDS: MORPHINE SULFATE 10 MG/ML INJ IV PRN ×3 (17:03→22:39)
[2016-07-15] MEDS: FERROUS SULFATE 325 MG TABLET PO SCH (17:11)
[2016-07-15] MEDS: FINASTERIDE 5 MG TABLET PO SCH (17:12)
[2016-07-15] MEDS: SENNOSIDES/DOCUSATE 8.6-50 MG 1 EACH TABLET PO SCH (17:14)
[2016-07-15] MEDS ORDERED: CINNAMON BARK PO SCH (18:00)
[2016-07-15] MEDS ORDERED: NIACIN 500 MG PO SCH (18:00)
[2016-07-15] MEDS: PRAMIPEXOLE DI-HCL 0.25 MG TABLET PO SCH (22:39)
[2016-07-15] MEDS: TAMSULOSIN HCL 0.4 MG CAP.SR.24H PO SCH (22:39)
[2016-07-15] MEDS: SIMVASTATIN 10 MG TABLET PO SCH (22:39)
[2016-07-15] MEDS: OXYCODONE HCL SR 10 MG TABLET PO SCH (22:39)
[2016-07-15] MEDS: IBUPROFEN 800 MG in NORMAL SALINE 250 ML IV SCH (22:40)
[2016-07-16] MEDS ORDERED: VANCOMYCIN HCL 1,000 MG in DEXTROSE 5%-WATER 250 ML IV ONE (02:00)
[2016-07-16] MEDS: MORPHINE SULFATE 10 MG/ML INJ IV PRN ×2 (02:15→20:47)
[2016-07-16] MEDS: LANSOPRAZOLE 30 MG TAB.RAP.DR PO SCH (06:45)
[2016-07-16] MEDS: IBUPROFEN 800 MG in NORMAL SALINE 250 ML IV SCH ×3 (06:45→22:29)
[2016-07-16 07:38] LABS: HEMATOCRIT 28.6 % (37.9-51.0); HEMOGLOBIN 9.6 g/dL (13.5-17.0); HGB HCT DIFFERENCE 0.2; MEAN CORPUSCULAR HEMOGLOBIN 29.2 pg (27.0-33.4); MEAN CORPUSCULAR HGB CONC 33.7 g/dL (32.0-36.0); MEAN CORPUSCULAR VOLUME 87 fl (80-97); RED BLOOD COUNT 3.29 10^6/uL (4.35-5.55); RED CELL DISTRIBUTION WIDTH 14.9 % (11.5-14.0); WHITE BLOOD COUNT 9.4 10^3/uL (4.0-10.5)
[2016-07-16 07:59] LABS: ANION GAP 7 (5-19); BLOOD UREA NITROGEN 29 mg/dL (7-20); CALCIUM 9.6 mg/dL (8.4-10.2); CARBON DIOXIDE 26 mmol/L (22-30); CHLORIDE 105 mmol/L (98-107); GLUCOSE 109 mg/dL (75-110); POTASSIUM 4.4 mmol/L (3.6-5.0); SODIUM 138.2 mmol/L (137-145)
[2016-07-16] MEDS ORDERED: OMEGA PO SCH (08:00)
[2016-07-16] MEDS ORDERED: (PENDING PHARMACY ID) (Multivitamin/Iron/Folic Acid [Centrum Complete Multivit Tab] 1 EACH PO SCH (08:00)
[2016-07-16] MEDS ORDERED: (PENDING PHARMACY ID) (Telmisartan [Micardis 80 Mg Tablet] 80 MG) PO SCH (08:00)
[2016-07-16] MEDS ORDERED: (PENDING PHARMACY ID) (Esomeprazole Mag Trihydrate [Nexium] 40 MG) PO SCH (08:00)
[2016-07-16] MEDS ORDERED: EPA PO SCH (08:00)
[2016-07-16] MEDS ORDERED: [UNRECOGNIZED DRUG - OTHER] PO SCH (08:00)
[2016-07-16] MEDS ORDERED: DHA PO SCH (08:00)
[2016-07-16] MEDS ORDERED: FISH OIL PO SCH (08:00)
[2016-07-16] MEDS ORDERED: D3 PO SCH (08:00)
[2016-07-16] MEDS: SENNOSIDES/DOCUSATE 8.6-50 MG 1 EACH TABLET PO SCH ×2 (09:22→17:32)
[2016-07-16] MEDS: LEVOTHYROXINE SODIUM 0.05 MG TABLET PO SCH (09:22)
[2016-07-16] MEDS: ASPIRIN 325 MG TABLET PO SCH (09:22)
[2016-07-16] MEDS: FERROUS SULFATE 325 MG TABLET PO SCH ×2 (09:22→17:32)
[2016-07-16] MEDS: OMEGA-3 ACID ETHYL ESTERS 1 GM CAPSULE PO SCH (09:22)
[2016-07-16] MEDS: CYANOCOBALAMIN (VITAMIN B-12) 1,000 MCG TABLET PO SCH (09:23)
[2016-07-16] MEDS: FUROSEMIDE 40 MG TABLET PO SCH (09:23)
[2016-07-16] MEDS: CALCIUM CARBONATE 500 MG TABLET PO SCH ×2 (09:23→17:33)
[2016-07-16] MEDS: OXYCODONE HCL SR 10 MG TABLET PO SCH ×2 (09:24→22:29)
[2016-07-16] MEDS: LOSARTAN POTASSIUM 50 MG TABLET PO SCH (09:24)
[2016-07-16] MEDS: PRENATAL VITAMIN W-O CA NO5/FE FUMARATE/FA CAPSULE PO SCH (09:29)
[2016-07-16] MEDS: RIFAMPIN 300 MG CAPSULE PO SCH ×2 (13:24→17:32)
[2016-07-16] MEDS: VANCOMYCIN HCL 1,500 MG in DEXTROSE 5%-WATER 250 ML IV SCH ×2 (13:24→20:47)
[2016-07-16] MEDS: FINASTERIDE 5 MG TABLET PO SCH (17:32)
[2016-07-16] MEDS: FENOFIBRATE NANOCRYSTALLIZED 145 MG TABLET PO SCH (17:32)
[2016-07-16] MEDS: OXYCODONE HCL IR 5 MG TABLET PO PRN (17:35)
[2016-07-16] MEDS: TAMSULOSIN HCL 0.4 MG CAP.SR.24H PO SCH (22:29)
[2016-07-16] MEDS: SIMVASTATIN 10 MG TABLET PO SCH (22:29)
[2016-07-16] MEDS: PRAMIPEXOLE DI-HCL 0.25 MG TABLET PO SCH (22:29)
[2016-07-17] MEDS: OXYCODONE HCL IR 5 MG TABLET PO PRN ×4 (00:56→20:52)
[2016-07-17] MEDS: MORPHINE SULFATE 10 MG/ML INJ IV PRN ×2 (03:03→14:35)
[2016-07-17] MEDS: VANCOMYCIN HCL 1,500 MG in DEXTROSE 5%-WATER 250 ML IV SCH ×3 (04:14→20:42)
[2016-07-17 05:26] LABS: HEMOGLOBIN 9.7 g/dL (13.5-17.0); HGB HCT DIFFERENCE 0.1; MEAN CORPUSCULAR HEMOGLOBIN 28.9 pg (27.0-33.4); MEAN CORPUSCULAR HGB CONC 33.4 g/dL (32.0-36.0); MEAN CORPUSCULAR VOLUME 86 fl (80-97); RED BLOOD COUNT 3.36 10^6/uL (4.35-5.55); RED CELL DISTRIBUTION WIDTH 14.7 % (11.5-14.0); WHITE BLOOD COUNT 8.3 10^3/uL (4.0-10.5)
[2016-07-17] MEDS: LANSOPRAZOLE 30 MG TAB.RAP.DR PO SCH (06:51)
[2016-07-17] MEDS: IBUPROFEN 800 MG in NORMAL SALINE 250 ML IV SCH ×2 (06:51→17:54)
--- NOTE | 2016-07-17 07:22 | PDOC PROGRESS REPORT ---
Subjective Progress Note for:: 07/17/16 Subjective:: Patient complains of right knee pain Physical Exam Vital Signs: Temp Pulse Resp BP Pulse Ox 37.1 C 106 H 16 114/76 98 07/16/16 23:10 07/16/16 23:10 07/16/16 23:10 07/16/16 23:10 07/16/16 23:10 Intake & Output 07/16/16 07/17/16 07/18/16 06:59 06:59 06:59 Intake Total 7308 2195 Output Total 3400 2000 Balance 3908 195 Weight 138.2 kg General appearance: PRESENT: mild distress Head exam: PRESENT: normocephalic Eye exam: PRESENT: EOMI Respiratory exam: PRESENT: unlabored Cardiovascular exam: PRESENT: RRR Pulses: PRESENT: +1 pedal pulses bilateral Vascular exam: PRESENT: normal capillary refill GI/Abdominal exam: PRESENT: soft Rectal exam: PRESENT: deferred Extremities exam: PRESENT: other - Right knee dressing which is saturated. The ivan dressing is changed today. Wound edges are well approximated. Distal neurovascular examinations intact. There is modest pedal edema. Neurological exam: PRESENT: alert, awake, oriented to person, oriented to place , oriented to time, oriented to situation. ABSENT: motor sensory deficit Psychiatric exam: PRESENT: appropriate affect, normal mood. ABSENT: homicidal ideation, suicidal ideation Skin exam: PRESENT: dry, intact, warm. ABSENT: cyanosis, rash Results Laboratory Results: 07/17/16 04:54 07/16/16 07:28 07/16/16 07/16/16 07/17/16 07:28 07:28 04:54 WBC 9.4 8.3 RBC 3.29 L 3.36 L Hgb 9.6 L 9.7 L Hct 28.6 L 29.0 L MCV 87 86 MCH 29.2 28.9 MCHC 33.7 33.4 RDW 14.9 H 14.7 H Plt Count 287 288 Sodium 138.2 Potassium 4.4 Chloride 105 Carbon Dioxide 26 Anion Gap 7 BUN 29 H Creatinine 1.10 Est GFR ( Amer) > 60 Est GFR (Non-Af Amer) > 60 Glucose 109 Calcium 9.6 Impressions: Knee X-Ray 07/15/16 14:15 IMPRESSION: SATISFACTORY POSTOPERATIVE RIGHT KNEE. Status: Imported from PACS Assessment & Plan - Diagnosis (1) Infected prosthetic knee joint Is this a current diagnosis for this admission?: YesPlan: Patient status post the second phase of a two-stage reconstruction for a right knee periprosthetic infection. Sutures remained no growth so far. Hematocrit remains above 28%. Patient is plagued with pain but this is not unusual and light of his previous operations. Plan will be for mobilization with physical therapy on a weightbearing as tolerated basis. Anticipate discharge home with home health [facility] physical therapy. Once his functional level permits. - Time Time Spent with patient: Less than 15 minutes Anticipated discharge: Home with Homehealth Within: within 24 hours
[2016-07-17] MEDS: PRENATAL VITAMIN W-O CA NO5/FE FUMARATE/FA CAPSULE PO SCH (09:20)
[2016-07-17] MEDS: LOSARTAN POTASSIUM 50 MG TABLET PO SCH (09:20)
[2016-07-17] MEDS: SENNOSIDES/DOCUSATE 8.6-50 MG 1 EACH TABLET PO SCH ×2 (09:20→17:54)
[2016-07-17] MEDS: OMEGA-3 ACID ETHYL ESTERS 1 GM CAPSULE PO SCH (09:21)
[2016-07-17] MEDS: LEVOTHYROXINE SODIUM 0.05 MG TABLET PO SCH (09:21)
[2016-07-17] MEDS: FUROSEMIDE 40 MG TABLET PO SCH (09:21)
[2016-07-17] MEDS: FERROUS SULFATE 325 MG TABLET PO SCH ×2 (09:21→17:55)
[2016-07-17] MEDS: CYANOCOBALAMIN (VITAMIN B-12) 1,000 MCG TABLET PO SCH (09:21)
[2016-07-17] MEDS: ASPIRIN 325 MG TABLET PO SCH (09:21)
[2016-07-17] MEDS: CALCIUM CARBONATE 500 MG TABLET PO SCH ×2 (09:21→17:55)
[2016-07-17] MEDS: OXYCODONE HCL SR 10 MG TABLET PO SCH (09:22)
[2016-07-17] MEDS: RIFAMPIN 300 MG CAPSULE PO SCH ×2 (09:22→17:55)
[2016-07-17] MEDS: FINASTERIDE 5 MG TABLET PO SCH (17:55)
[2016-07-17] MEDS: FENOFIBRATE NANOCRYSTALLIZED 145 MG TABLET PO SCH (17:55)
[2016-07-17] MEDS: PRAMIPEXOLE DI-HCL 0.25 MG TABLET PO SCH (21:45)
[2016-07-17] MEDS: SIMVASTATIN 10 MG TABLET PO SCH (21:45)
[2016-07-17] MEDS: TAMSULOSIN HCL 0.4 MG CAP.SR.24H PO SCH (21:45)
[2016-07-17] MEDS: DIPHENHYDRAMINE HCL 50 MG/ML VIAL IV PRN (22:23)
[2016-07-18] MEDS: LANSOPRAZOLE 30 MG TAB.RAP.DR PO SCH (05:18)
[2016-07-18 05:20] LABS: HEMATOCRIT 30.7 % (37.9-51.0); HEMOGLOBIN 10.3 g/dL (13.5-17.0); HGB HCT DIFFERENCE 0.2; MEAN CORPUSCULAR HGB CONC 33.3 g/dL (32.0-36.0); MEAN CORPUSCULAR VOLUME 87 fl (80-97); RED BLOOD COUNT 3.53 10^6/uL (4.35-5.55); RED CELL DISTRIBUTION WIDTH 14.8 % (11.5-14.0); WHITE BLOOD COUNT 7.9 10^3/uL (4.0-10.5)
--- NOTE | 2016-07-18 07:19 | PDOC PROGRESS REPORT ---
Subjective Progress Note for:: 07/18/16 Subjective:: patient with only minor complaints today. Physical Exam Vital Signs: Temp Pulse Resp BP Pulse Ox 36.9 C 110 H 18 127/79 H 100 07/17/16 23:38 07/17/16 23:38 07/17/16 23:38 07/17/16 23:38 07/17/16 23:38 Intake & Output 07/17/16 07/18/16 07/19/16 06:59 06:59 06:59 Intake Total 219 1625 Output Total 1999 3274 Balance 195 -1650 Weight 138.2 kg 136.7 kg General appearance: PRESENT: no acute distress Head exam: PRESENT: normocephalic Eye exam: PRESENT: EOMI Respiratory exam: PRESENT: unlabored Cardiovascular exam: PRESENT: RRR Pulses: PRESENT: +1 pedal pulses bilateral Vascular exam: PRESENT: normal capillary refill GI/Abdominal exam: PRESENT: soft Rectal exam: PRESENT: deferred Extremities exam: PRESENT: other - right lower extremity dressing with only minor drainage over the last 24 hours. there is pedal edema present. distal neurovascular examination is intact. Skin exam: PRESENT: dry, intact, warm. ABSENT: cyanosis, rash Results Laboratory Results: 07/18/16 04:37 07/16/16 07:28 07/18/16 04:37 WBC 7.9 RBC 3.53 L Hgb 10.3 L Hct 30.7 L MCV 87 MCH 29.0 MCHC 33.3 RDW 14.8 H Plt Count 329 Impressions: Knee X-Ray 07/15/16 14:15 IMPRESSION: SATISFACTORY POSTOPERATIVE RIGHT KNEE. Assessment & Plan - Diagnosis (1) Infected prosthetic knee joint Is this a current diagnosis for this admission?: YesPlan: 71-year-old white male status post second stage of two-stage reconstruction for right periprosthetic knee infection. the patient seems to have turned the corner and sensitivities making excellent progress with physical therapy. he remains afebrile. drainage and the wound seems to be limited. intraoperative cultures showed no growth so far. patient is tentatively scheduled for a bone marrow biopsy by dr. villalobos. from an orthopedic standpoint my plan is to maintain his antibiotics for an additional day to assure that the intraoperative cultures are truly negative. at that point i think he can be discharged on oral suppressive antibiotic. the picc line can also be discontinued.
[2016-07-18] MEDS: OXYCODONE HCL IR 5 MG TABLET PO PRN ×2 (07:44→18:02)
[2016-07-18] MEDS: FUROSEMIDE 40 MG TABLET PO SCH (08:57)
[2016-07-18] MEDS: CALCIUM CARBONATE 500 MG TABLET PO SCH ×2 (08:57→17:54)
[2016-07-18] MEDS: LEVOTHYROXINE SODIUM 0.05 MG TABLET PO SCH (08:58)
[2016-07-18] MEDS: OMEGA-3 ACID ETHYL ESTERS 1 GM CAPSULE PO SCH (08:58)
[2016-07-18] MEDS: RIFAMPIN 300 MG CAPSULE PO SCH ×2 (10:18→17:55)
[2016-07-18] MEDS: ASPIRIN 325 MG TABLET PO SCH (10:18)
[2016-07-18] MEDS: FERROUS SULFATE 325 MG TABLET PO SCH ×2 (10:18→17:54)
[2016-07-18] MEDS: CYANOCOBALAMIN (VITAMIN B-12) 1,000 MCG TABLET PO SCH (10:18)
[2016-07-18] MEDS: SENNOSIDES/DOCUSATE 8.6-50 MG 1 EACH TABLET PO SCH ×2 (10:19→17:54)
[2016-07-18] MEDS: PRENATAL VITAMIN W-O CA NO5/FE FUMARATE/FA CAPSULE PO SCH (10:22)
[2016-07-18] MEDS: LOSARTAN POTASSIUM 50 MG TABLET PO SCH (10:22)
[2016-07-18] MEDS: MORPHINE SULFATE 10 MG/ML INJ IV PRN ×2 (14:45→21:25)
[2016-07-18] MEDS: FINASTERIDE 5 MG TABLET PO SCH (17:54)
[2016-07-18] MEDS: FENOFIBRATE NANOCRYSTALLIZED 145 MG TABLET PO SCH (17:54)
[2016-07-18] MEDS: VANCOMYCIN HCL 1,250 MG in DEXTROSE 5%-WATER 250 ML IV SCH (17:55)
[2016-07-18] MEDS: TAMSULOSIN HCL 0.4 MG CAP.SR.24H PO SCH (21:25)
[2016-07-18] MEDS: SIMVASTATIN 10 MG TABLET PO SCH (21:25)
[2016-07-18] MEDS: PRAMIPEXOLE DI-HCL 0.25 MG TABLET PO SCH (21:25)
[2016-07-19] MEDS: DIPHENHYDRAMINE HCL 50 MG/ML VIAL IV PRN (00:06)
[2016-07-19] MEDS: OXYCODONE HCL IR 5 MG TABLET PO PRN ×2 (00:06→08:28)
--- NOTE | 2016-07-19 06:43 | PDOC DISCHARGE SUMMARY ---
General - Admit/Disc Date/PCP Admission Date/Primary Care Provider: 07/15/16 08:58 SHADE GARCÍA MD Discharge Date: 07/19/16 - Discharge Diagnosis (1) Infected prosthetic knee joint Is this a current diagnosis for this admission?: Yes - Additional Information Resuscitation Status: Full Code Discharge Diet: As Tolerated, Regular Discharge Activity: Balance Activity w/Rest, No Driving, No tub bath Home Medications: Cyclobenzaprine HCl [Flexeril 10 mg Tablet] 10 mg PO TIDP PRN 08/08/13 Fenofibrate Nanocrystallized [Tricor 145 mg Tablet] 145 mg PO QHS 08/08/13 Gluc [place]/Chondro [place] A/Vit C/Mn [Glucosamine 1,500 Complex Cap] 1 each PO QAM Hydrocodone Bit/Acetaminophen [Hydrocodon-Acetaminophn 10-325] 1 each PO QID PRN 08/08/13 Multivitamin/Iron/Folic Acid [Centrum Complete Multivit Tab] 1 each PO QAM 08/08 Pramipexole Di-HCl [Mirapex 0.25 mg Tablet] 0.25 mg PO QHS 08/08/13 Simvastatin [Zocor 10 mg Tablet] 10 mg PO QHS 08/08/13 Meloxicam [Mobic 15 mg Tablet] 15 mg PO DAILY 03/11/15 Ceftriaxone 2 gm/D5w RTU [Rocephin RTU 2 gm/D5w 50 ml Premix Bag] 2 gm IV Q24H # 45 rtupb 03/15/15 Rifampin [Rimactane] 300 mg PO BID #0 capsule 03/15/15 Tramadol HCl [Ultram] 50 mg PO TID 03/17/15 Telmisartan [Micardis 80 mg Tablet] 80 mg PO QAM 03/18/15 Cyclobenzaprine HCl [Flexeril 10 mg Tablet] 10 mg PO TIDP PRN #30 tablet Esomeprazole Mag Trihydrate [Nexium] 40 mg PO QAM 06/07/15 Hydrocodone Bit/Acetaminophen [Hydrocodon-Acetaminophn 10-325] 2 tab PO TID PRN 07/28/15 Cinnamon Bark [Cinnamon Bark 500 mg Capsule] 1 cap PO BID 04/30/16 Finasteride 5 mg PO QPM 04/30/16 Furosemide [Lasix 40 mg Tablet] 40 mg PO QAM 04/30/16 Levothyroxine Sodium 50 mcg PO QAM 04/30/16 Niacin (Inositol Niacinate) [Niacin 500 mg Capsule] 500 mg PO BID 04/30/16 [place]-3S/Dha/Epa/Fish Oil/D3 [Fish Djz-Hhvmc-3-Vit D Softgel] 1 each PO QAM Tamsulosin HCl [Flomax] 0.8 mg PO QHS 04/30/16 Tramadol HCl [Ultram] 50 mg PO TID 04/30/16 Cyanocobalamin (Vitamin B-12) [Vitamin B-12 1000 mcg Tablet] 1,000 mcg PO DAILY #30 tablet 05/16/16 Aspirin 325 mg PO DAILY 07/03/16 Ferrous Sulfate [Feosol] 325 mg PO BID 07/03/16 Meloxicam [Mobic 15 mg Tablet] 15 mg PO DAILY 07/03/16 Calcium Carbonate [Calcium] 1,000 mg PO BID 07/08/16 Oxycodone HCl [Oxy-Ir 5 mg Tablet] 5 mg PO Q6HP PRN #0 tablet 07/19/16 History of Present Illness History of Present Illness: JAYLON GREEN is a 71 year old male who has had a chronically infected right knee arthroplasty and has recently undergone the first stage of two-stage reconstruction with resection of the arthroplasty and implantation of the cement spacer. The patient now presents for an implantation of a knee arthroplasty Hospital Course Hospital Course: The patient's made through the operating room where he undergoes a complicated right knee reconstruction. Intraoperative cultures remain negative. The patient makes progress with physical therapy. Analgesia is adequately addressed with oral agents. Dressing is changed on the day of discharge. Wound is well approximated and dry. Distal neurovascular examinations intact. Physical Exam Vital Signs: Temp Pulse Resp BP Pulse Ox 36.9 C 103 H 18 132/88 H 97 07/19/16 00:07 07/19/16 00:07 07/19/16 00:07 07/19/16 00:07 07/19/16 00:07 Intake & Output 07/17/16 07/18/16 07/19/16 06:59 06:59 06:59 Intake Total 2198 1628 900 Output Total 1999 9883 0971 Balance 195 -1650 -1800 Weight 138.2 kg 136.7 kg 136.7 kg General appearance: PRESENT: no acute distress Head exam: PRESENT: normocephalic Eye exam: PRESENT: EOMI Respiratory exam: PRESENT: unlabored Cardiovascular exam: PRESENT: RRR Pulses: PRESENT: +1 pedal pulses bilateral Vascular exam: PRESENT: normal capillary refill GI/Abdominal exam: PRESENT: soft Rectal exam: PRESENT: deferred Extremities exam: PRESENT: pedal edema, other - Dressing is changed on the day of discharge. Wound is well approximated with flaco. Wound is dry. There is pedal edema. Distal neurovascular examinations intact. Neurological exam: PRESENT: alert, awake, oriented to person, oriented to place , oriented to time, oriented to situation. ABSENT: motor sensory deficit Psychiatric exam: PRESENT: appropriate affect, normal mood. ABSENT: homicidal ideation, suicidal ideation Skin exam: PRESENT: dry, intact, warm. ABSENT: cyanosis, rash Results Laboratory Results: 07/18/16 04:37 07/16/16 07:28 07/15/16 12:15 Knee - Joint Gram Stain - Final Impressions: Knee X-Ray 07/15/16 14:15 IMPRESSION: SATISFACTORY POSTOPERATIVE RIGHT KNEE. Status: Imported from PACS Plan Discharge Plan: Patient to be discharged home with home health nursing and home health physical therapy. Dressing can be changed as needed. A shunt to be discharged on aspirin as a DVT prophylaxis medication. Because of his previous experience with several toe. He is also can be discharged home with a daily Septra DS for continued antibiotic suppression Time Spent: Less than 30 Minutes
[2016-07-19] MEDS: LANSOPRAZOLE 30 MG TAB.RAP.DR PO SCH (06:45)
[2016-07-19] MEDS: VANCOMYCIN HCL 1,250 MG in DEXTROSE 5%-WATER 250 ML IV SCH (06:45)
[2016-07-19 08:19] VITALS: BP 130/87
[2016-07-19] MEDS: CALCIUM CARBONATE 500 MG TABLET PO SCH (08:26)
[2016-07-19] MEDS: FUROSEMIDE 40 MG TABLET PO SCH (08:27)
[2016-07-19] MEDS: LEVOTHYROXINE SODIUM 0.05 MG TABLET PO SCH (08:27)
[2016-07-19] MEDS: OMEGA-3 ACID ETHYL ESTERS 1 GM CAPSULE PO SCH (08:27)
[2016-07-19] MEDS: FERROUS SULFATE 325 MG TABLET PO SCH (10:24)
[2016-07-19] MEDS: RIFAMPIN 300 MG CAPSULE PO SCH (10:24)
[2016-07-19] MEDS: ASPIRIN 325 MG TABLET PO SCH (10:24)
[2016-07-19] MEDS: SENNOSIDES/DOCUSATE 8.6-50 MG 1 EACH TABLET PO SCH (10:24)
[2016-07-19] MEDS: LOSARTAN POTASSIUM 50 MG TABLET PO SCH (10:25)
[2016-07-19] MEDS: CYANOCOBALAMIN (VITAMIN B-12) 1,000 MCG TABLET PO SCH (10:25)
[2016-07-19] MEDS: PRENATAL VITAMIN W-O CA NO5/FE FUMARATE/FA CAPSULE PO SCH (10:25)
== END 2016-07-19 11:00 | disposition home health service (06) | DRG 468 ==
LOC: INOR 08:58 → 4N 15:50
PROVIDERS: ADMIT Orthopaedic Surgery; ATTEND Orthopaedic Surgery
PROC: 0SPC08Z Removal of Spacer from Right Knee Joint, Open Approach (ICD-10-PCS; 2016-07-15)
PROC: 0SRC0J9 Replacement of Right Knee Joint with Synthetic Substitute, Cemented, Open Approach (ICD-10-PCS; principal; 2016-07-15 11:15)
DX: T84.53XA Infection and inflammatory reaction due to internal right knee prosthesis, initial encounter (principal); I10 Essential (primary) hypertension; M17.10 Unilateral primary osteoarthritis, unspecified knee; Z87.891 Personal history of nicotine dependence
CPT/HCPCS: 01402; 36415; 80048; 80202; 82947; 84132; 85027; 87070; 87075; 87077; 87186; 87205; 94799; C1713; C9290; G8978-GP; G8979-GP; J0330; J0690; J1200; J1741; J2250; J2270; J2405; J2704; J2765; J3010; J3370; J3490; J7050; J7060

== ENCOUNTER → 2016-08-08 | Outpatient (CLI) | payer MEDICARE, OTHER ==
[2016-08-08 11:40] LABS: ABSOLUTE BASOPHILS # (AUTO) 0.1 10^3/uL (0.0-0.2); ABSOLUTE EOSINOPHILS # (AUTO) 0.6 10^3/uL (0.0-0.6); ABSOLUTE LYMPHOCYTES (AUTO) 1.5 10^3/uL (0.5-4.7); ABSOLUTE MONOCYTES (AUTO) 0.6 10^3/uL (0.1-1.4); ABSOLUTE NEUT (AUTO) 3.1 10^3/uL (1.7-8.2); BASOPHILS % (AUTO) 0.9 % (0-2); EOSINOPHILS % (AUTO) 10.8 % (0-6); HEMATOCRIT 28.5 % (37.9-51.0); HEMOGLOBIN 9.6 g/dL (13.5-17.0); HGB HCT DIFFERENCE 0.3; MEAN CORPUSCULAR HEMOGLOBIN 29.4 pg (27.0-33.4); MEAN CORPUSCULAR HGB CONC 33.6 g/dL (32.0-36.0); MEAN CORPUSCULAR VOLUME 87 fl (80-97); MONOCYTES % (AUTO) 10.6 % (3-13); RED BLOOD COUNT 3.26 10^6/uL (4.35-5.55); RED CELL DISTRIBUTION WIDTH 14.5 % (11.5-14.0); SEGMENTED NEUTROPHILS % (AUTO) 51.7 % (42-78); WHITE BLOOD COUNT 5.9 10^3/uL (4.0-10.5)
[2016-08-08 12:02] LABS: ANION GAP 12 (5-19); BLOOD UREA NITROGEN 30 mg/dL (7-20); C-REACTIVE PROTEIN 48.7 mg/L (<10.0); CALCIUM 10.2 mg/dL (8.4-10.2); CARBON DIOXIDE 26 mmol/L (22-30); CHLORIDE 103 mmol/L (98-107); CREATININE RESULT 1.48 mg/dL (0.52-1.25); GLUCOSE 91 mg/dL (75-110); SODIUM 140.6 mmol/L (137-145)
[2016-08-08 12:03] LABS: POTASSIUM 5.6 mmol/L (3.6-5.0)
[2016-08-08 12:17] LABS: ERYTHROCYTE SEDIMENTATION RATE 84 mm/hr (0-20)
== END ==
LOC: OD 10:19
PROVIDERS: ATTEND Orthopaedic Surgery
DX: T84.50XA Infection and inflammatory reaction due to unspecified internal joint prosthesis, initial encounter (principal)
CPT/HCPCS: 36415; 80048; 85025; 85652; 86140

== ENCOUNTER 2016-09-17 09:15 | Day surgery (SDC) | payer MEDICARE, OTHER ==
[2016-09-17 10:07] LABS: HEMATOCRIT 33.6 % (37.9-51.0); HEMOGLOBIN 10.7 g/dL (13.5-17.0); HGB HCT DIFFERENCE -1.5; MEAN CORPUSCULAR HEMOGLOBIN 28.3 pg (27.0-33.4); MEAN CORPUSCULAR HGB CONC 31.8 g/dL (32.0-36.0); MEAN CORPUSCULAR VOLUME 89 fl (80-97); RED BLOOD COUNT 3.78 10^6/uL (4.35-5.55); RED CELL DISTRIBUTION WIDTH 13.8 % (11.5-14.0); WHITE BLOOD COUNT 6.7 10^3/uL (4.0-10.5)
[2016-09-17 10:10] LABS: PROTHROMBIN TIME 13.7 SEC (11.4-15.4)
[2016-09-17 10:11] LABS: PARTIAL THROMBOPLASTIN TIME 40.6 SEC (23.5-35.8)
[2016-09-17 10:26] LABS: BLOOD UREA NITROGEN 26 mg/dL (7-20)
[2016-09-17] MEDS ORDERED: FENTANYL CITRATE INJ/PF 250 MCG/5 ML AMPULE ONE (11:34)
[2016-09-17] MEDS ORDERED: MIDAZOLAM 2 MG/2 ML INJ ONE (11:35)
--- NOTE | 2016-09-17 12:39 | RADIOLOGY REPORT (SQ) ---
EXAM DESCRIPTION: CT BIOPSY BONE DEEP; CT NEEDLE PLACEMENT COMPLETED DATE/TIME: 09/17/2016 12:28 pm; 09/17/2016 12:06 pm REASON FOR STUDY: OSTEOMYELFIBROSIS/ANEMIA D47.4 OSTEOMYELOFIBROSIS D64.9 ANEMIA, UNSPECIFIED Z79. 01 LONGTERM (CURRENT) USE OF ANTICOAGULANTS COMPARISON: None. TECHNIQUE: CT guided biopsy of the right posterior iliac crest bone marrow performed with conscious sedation. CT Fluoroscopy Time: 4.[address] scanners at this facility use dose modulation, iterative reconstruction, and/or weight based d osing when appropriate to reduce radiation dose to as low as reasonably achievable (ALARA). [facility]: Dose Right [facility]: CareDose [facility]: Dose Right [facility]: Teradose 4D [facility]: [employer] RADIATION DOSE: mGy. FINDINGS: The procedure was discussed with the patient and the patient agreed to the procedure. Prio r to the procedure, a time out was performed to verify the patient's identity and planned procedure. IV sedation was administered and physician direction by the registered nurse using 2 milligrams of Ve rsed and 125 micrograms of fentanyl. Physiologic monitoring was provided before, during, and after se dation. The total sedation time was 20 minutes. Documentation face to face time, the performing proceduralist, spent monitoring the patient: [address] scanning was performed to localize the percutaneous site for the biopsy approach. After sterile skin prep and local lidocaine for skin and deep tissue anesthesia, a 14 gauge bone biop sy needle tissues sustained an aspirate of bone marrow, and 2 cores of marrow material. Specimens we re given to Dr. Leonardo's nurse for outside review. There were no immediate complications. Pathology is pending at the time of dictation. IMPRESSION: CT GUIDED BIOPSY OF THE RIGHT POSTERIOR ILIAC CREST BONE MARROW PERFORMED WITHOUT IMMEDI ATE COMPLICATION. PATHOLOGY PENDING. IV CONSCIOUS SEDATION COMMENT: Quality ID 145: Final reports for procedures using fluoroscopy that document radiation exp osure indices, or exposure time and number of fluorographic images (if radiation exposure indices are not available) Patient medication list reviewed: Yes- Quality ID# [id number]:Eligible professional attests to documenting i n the medical record they obtained, updated, or reviewed the patient's current medications.. TECHNICAL DOCUMENTATION: JOB ID: [id number] Quality ID# [id number]: Final reports with documentation of one or more dose reduction techniques (e.g., Aut omated exposure control, adjustment of the mA and/or kV according to patient size, use of iterative r econstruction technique) 2011 [email or web address]- All Rights Reserved
--- NOTE | 2016-09-17 12:39 | RADIOLOGY REPORT (SQ) ---
EXAM DESCRIPTION: CT BIOPSY BONE DEEP; CT NEEDLE PLACEMENT COMPLETED DATE/TIME: 09/17/2016 12:28 pm; 09/17/2016 12:06 pm REASON FOR STUDY: OSTEOMYELFIBROSIS/ANEMIA D47.4 OSTEOMYELOFIBROSIS D64.9 ANEMIA, UNSPECIFIED Z79. 01 LONG-TERM (CURRENT) USE OF ANTICOAGULANTS COMPARISON: None. TECHNIQUE: CT guided biopsy of the right posterior iliac crest bone marrow performed with conscious sedation. CT Fluoroscopy Time: 4.[address] scanners at this facility use dose modulation, iterative reconstruction, and/or weight based d osing when appropriate to reduce radiation dose to as low as reasonably achievable (ALARA). [facility]: Dose Right [facility]: CareDose [facility]: Dose Right [facility]: Teradose 4D [facility]: [employer] RADIATION DOSE: mGy. FINDINGS: The procedure was discussed with the patient and the patient agreed to the procedure. Prio r to the procedure, a time out was performed to verify the patient's identity and planned procedure. IV sedation was administered and physician direction by the registered nurse using 2 milligrams of Ve rsed and 125 micrograms of fentanyl. Physiologic monitoring was provided before, during, and after se dation. The total sedation time was 20 minutes. Documentation face to face time, the performing proceduralist, spent monitoring the patient: [address] scanning was performed to localize the percutaneous site for the biopsy approach. After sterile skin prep and local lidocaine for skin and deep tissue anesthesia, a 14 gauge bone biop sy needle tissues sustained an aspirate of bone marrow, and 2 cores of marrow material. Specimens we re given to Dr. Leonardo's nurse for outside review. There were no immediate complications. Pathology is pending at the time of dictation. IMPRESSION: CT GUIDED BIOPSY OF THE RIGHT POSTERIOR ILIAC CREST BONE MARROW PERFORMED WITHOUT IMMEDI ATE COMPLICATION. PATHOLOGY PENDING. IV CONSCIOUS SEDATION COMMENT: Quality ID 145: Final reports for procedures using fluoroscopy that document radiation exp osure indices, or exposure time and number of fluorographic images (if radiation exposure indices are not available) Patient medication list reviewed: Yes- Quality ID# [id number]:Eligible professional attests to documenting i n the medical record they obtained, updated, or reviewed the patient's current medications.. TECHNICAL DOCUMENTATION: JOB ID: [id number] Quality ID# [id number]: Final reports with documentation of one or more dose reduction techniques (e.g., Aut omated exposure control, adjustment of the mA and/or kV according to patient size, use of iterative r econstruction technique) 2011 [employer]- All Rights Reserved
[2016-09-17] MEDS ORDERED: HYDROCODONE/ACETAMINOPHEN 10-325 MG TABLET PO PRN (12:44)
[2016-09-17] MEDS ORDERED: TRAMADOL HCL 50 MG TABLET PO PRN (12:45)
[2016-09-17] MEDS ORDERED: HYDROCODONE/ACETAMINOPHEN 10-325 MG TABLET PO ONE (13:30)
[2016-09-17] MEDS ORDERED: TRAMADOL HCL 50 MG TABLET PO ONE (14:00)
[2016-09-17 14:44] VITALS: BP 143/71
== END 2016-09-17 14:36 | disposition home or self-care (01) ==
LOC: RAD 09:15
PROVIDERS: ATTEND Specialist
PROC: 0QB23ZX Excision of Right Pelvic Bone, Percutaneous Approach, Diagnostic (ICD-10-PCS; principal; 2016-09-17)
DX: D47.4 Osteomyelofibrosis (principal); D50.9 Iron deficiency anemia, unspecified; Z79.01 Long term (current) use of anticoagulants; Z87.891 Personal history of nicotine dependence; J44.9 Chronic obstructive pulmonary disease, unspecified; M19.90 Unspecified osteoarthritis, unspecified site; M00.061 Staphylococcal arthritis, right knee; B95.62 Methicillin resistant Staphylococcus aureus infection as the cause of diseases classified elsewhere; I10 Essential (primary) hypertension; E03.9 Hypothyroidism, unspecified; E78.00 Pure hypercholesterolemia, unspecified; Z86.711 Personal history of pulmonary embolism
CPT/HCPCS: 36415; 84520; 82565; 85027; 85610; 85730; 77012; 20225; J2250; J3010

== ENCOUNTER → 2016-09-25 | Outpatient (CLI) | payer MEDICARE, OTHER ==
[2016-09-25 09:40] LABS: ANION GAP 11 (5-19); BLOOD UREA NITROGEN 26 mg/dL (7-20); CALCIUM 10.3 mg/dL (8.4-10.2); CARBON DIOXIDE 26 mmol/L (22-30); CHLORIDE 102 mmol/L (98-107); CHOLESTEROL 149.14 mg/dL (0-200); Direct HDL 59 mg/dL (>40); GLUCOSE 92 mg/dL (75-110); POTASSIUM 4.6 mmol/L (3.6-5.0); SODIUM 139.1 mmol/L (137-145); TRIGLYCERIDES 108 mg/dL (<150)
[2016-09-25 09:51] LABS: DIRECT LDL 31 mg/dL (<100)
[2016-09-25 10:09] LABS: PROSTATE SPECIFIC ANTIGEN < 0.064 ng/mL (<4.00)
== END ==
LOC: OD 08:04
PROVIDERS: ATTEND Family Medicine
DX: E78.2 Mixed hyperlipidemia (principal); I10 Essential (primary) hypertension; Z79.899 Other long term (current) drug therapy; N40.0 Benign prostatic hyperplasia without lower urinary tract symptoms
CPT/HCPCS: 36415; 80048; 80061; 83036; 84153; 84443

== ENCOUNTER → 2017-02-27 | Day surgery (SDC) | payer MEDICARE, OTHER ==
--- NOTE | 2017-02-27 13:25 | Operative Report ---
PROCEDURE: KNEE RADIOFREQUENCY right under fluroscopic guidance Preoperative Diagnosis: right knee osteoarthritis Postoperative Diagnosis: right knee osteoarthritis 1. Superolateral genicular branch from the vastus lateralis 2. Superomedial genicular branch from the vastus medialis 3. Inferomedial genicular branch from the saphenous nerve 4. Medial retinacular branch from the vastus intermedius DATE OF PROCEDURE: February 27, 2017 ANESTHESIA: Local anesthesia COMPLICATIONS: None reported PROCEDURE IN DETAIL: Hx/PE/meds/allergies/applicable labs reviewed. No changes and no contraindications were found. Full description of the procedure was provided including benefits as well as possible complications including transient increased pain, stomach irritation, mood alteration, transient weakness or parasthesias as well as more serious nerve injury, bleeding, infection or allergic reaction. Informed consent was obtained and documented. The patient was brought to the procedure room and placed on the exam table in a comfortable supine position. The place for needle placement was obtained by manual palpation with fluroscopic confirmation. The sterile field was prepared by chloroprep and sterile drapes. Local anesthesia superficial and deep was provided by local infiltration of 2% lidocaine. A 17g 75 mm radiofrequency introducer needle with a 4 mm active tip was placed overlying the right knee joint and using floroscopic guidance the needle was advanced to a bony endpoint on the superiolateral portion of the femoral condyle of the right knee. A second needle was advanced to a bony endpoint on the superiomedial portion of the femoral condyle. A third needle was then placed over the inferiomedial portion of the tibial condyle until a bony endpoint was met. A 4th needle placed 3mm above the patella. Attempted aspiration yielded no blood. Lateral fluroscopic views showed all the needles at 50% depth of the femur and tibia. Motor stimulation was tested at 2.0 volts with no leg movement. Images were saved in AP and lateral. A mixture consisting of 0.5% bupivacaine was slowly injected. Then a radiofrequency ablation of each of the geniculate nerves were done at 80 degrees Celsius for 2 minutes and 30 seconds each. The needles were withdrawn. The patient tolerated the procedure well. After observation the patient was discharged with instructions and follow up. They were also provided contact information to call regarding any concerning symptoms or questions. IMPRESSION: 1. Successful geniculate right knee radiofrequency ablation was performed. 2. The patient was given prescription of home medicines. 3. RTC in 1-2 week(s).
== END ==
LOC: RAD 12:20
PROVIDERS: ATTEND Family Medicine
PROC: 3E0T3TZ Introduction of Destructive Agent into Peripheral Nerves and Plexi, Percutaneous Approach (ICD-10-PCS; principal; 2017-02-27)
DX: M17.31 Unilateral post-traumatic osteoarthritis, right knee (principal)
CPT/HCPCS: 64640

== ENCOUNTER → 2017-04-10 | Day surgery (SDC) | payer MEDICARE, OTHER ==
[~2017-04-10] MED LIST changes: +BUPIVACAINE HCL 0.5 % INJ/PF 30 ML SDV ONE; -BUPIVACAINE INJ/PF LIPOSOME/PF 266 MG/20 ML SDV IJ PRN; -CEFAZOLIN INJ 1 GM VIAL IV PRN; -GLYCOPYRROLATE INJ 0.4 MG/2 ML VIAL ONE; -IBUPROFEN 800 MG/NS 250 ML IV PRN; -LANSOPRAZOLE 15 MG TAB.RAP.DR PO PRN; -LIDOCAINE 0.5% INJ-PF (5 MG/ML) 50 ML SDV SUBCUT PRN; -LIDOCAINE 2% INJ-PF (20 MG/ML) 10 ML AMPUL ONE; -METOCLOPRAMIDE HCL INJ/PF 10 MG/2 ML SDV ONE; -NEOSTIGMINE METHYLSULFATE 10 MG/10 ML VIAL ONE; -ONDANSETRON HCL INJ/PF 4 MG/2 ML SDV ONE; -OXYCODONE HCL SR 10 MG TABLET PO PRN; -RINGERS SOLUTION,LACTATED 1,000 ML IV PRN; -ROCURONIUM BROMIDE INJ 50 MG/5 ML VIAL IV ONE; -SCOPOLAMINE HYDROBROMIDE 1.5 MG PATCH.TD72 TOP PRN; -SUCCINYLCHOLINE CHLORIDE INJ 200 MG/10 ML VIAL ONE; -VANCOMYCIN HCL 1,000 MG in DEXTROSE 5%-WATER 250 ML IV PRN
--- NOTE | 2017-04-10 12:29 | Operative Report ---
PROCEDURE: 1. Right articular branch of femoral nerve radiofrequency denervation 2. Right articular branch of obturator nerve radiofrequency denervation Preoperative Diagnosis: Right osteoarthritis Hip Postoperative Diagnosis: Right osteoarthritis Hip DATE OF PROCEDURE: April 10, 2017 ANESTHESIA: Local anesthesia COMPLICATIONS: none reported PROCEDURE IN DETAIL: Hx/PE/meds/allergies/applicable labs reviewed. No changes and no contraindications were found. Full description of the procedure was provided including benefits as well as possible complications including transient increased pain, stomach irritation, mood alteration, transient weakness or parathesias as well as more serious nerve injury, bleeding, infection or allergic reaction. Informed consent was obtained and documented. The patient was brought to the procedure room and placed on the exam table in a comfortable supine position. The place for the needle placement was obtained by manual palpation with radiographic confirmation. The sterile field was prepared and sterile drapes. Local anesthesia superficial and deep was provided by local infiltration of 6 ml 1 % lidocaine. Using fluoroscopic guidance a 17g 150 mm radiofrequency needle with 4mm active tip was advanced to the anteromedial aspect of the extraarticular portion of the hip joint where the articular branch of the femoral nerve traverses until a bony endpoint is felt. Attempted aspiration yielded no blood. Motor testing was then performed with 2hz at 2 volts and no lower extremity motor stimulation was observed. 2 cc of .5 % marcaine was injected through the RF needle. A radiofrequency lesion of the articular branch of the femoral nerve was then performed at 80 degrees C for 2 min and 30 seconds. The needle was then withdrawn. A second needle was placed and using fluoroscopic confirmation with ULTRASOUND guidance the needle was advanced to the incisura of the acetabulum where the articular branch of the obturator nerve traverses until a bony endpoint was met. Attempted aspiration yielded no blood. Radiographs were made. Motor testing was then performed with 2hz at 2 volts and no lower extremity motor stimulation was observed. 2cc .5 % marcaine was injected through the RF needle. A radiofrequency lesion of the articular branch of the obturator nerve was then performed at 80 degrees C for 2 minutes and 30 seconds. The needle was then withdrawn. The patient tolerated the procedure well. After observation the patient was discharged with instructions and follow up. They were also provided contact information to call regarding any concerning symptoms or questions. IMPRESSION: 1. Successful radiofrequency ablations of the articular branches of the obturator and femoral nerves was performed. 2. Follow up in 1-2 weeks to assess the efficacy of the procedure. 3. Estimated Blood Loss: 0 4. Disposition: home
== END ==
LOC: RAD 12:29
PROVIDERS: ATTEND Family Medicine
PROC: 3E0T3TZ Introduction of Destructive Agent into Peripheral Nerves and Plexi, Percutaneous Approach (ICD-10-PCS; principal; 2017-04-10)
DX: M16.11 Unilateral primary osteoarthritis, right hip (principal)
CPT/HCPCS: 64640

== ENCOUNTER → 2017-05-08 | Day surgery (SDC) | payer MEDICARE, OTHER ==
[~2017-05-08] MED LIST changes: +LIDOCAINE 1% INJ-PF (10 MG/ML) 30 ML SDV ONE
--- NOTE | 2017-05-08 13:12 | Operative Report ---
PROCEDURE: KNEE RADIOFREQUENCY right under ultrasound guidance Preoperative Diagnosis: right knee osteoarthritis Postoperative Diagnosis:right knee osteoarthritis 1. Superolateral genicular branch from the vastus lateralis 2. Superomedial genicular branch from the vastus medialis 3. Inferomedial genicular branch from the saphenous nerve 4. Medial retinacular branch from the vastus intermedius DATE OF PROCEDURE: 05/08/2017 ANESTHESIA: Local anesthesia COMPLICATIONS: None reported PROCEDURE IN DETAIL: Hx/PE/meds/allergies/applicable labs reviewed. No changes and no contraindications were found. Full description of the procedure was provided including benefits as well as possible complications including transient increased pain, stomach irritation, mood alteration, transient weakness or parasthesias as well as more serious nerve injury, bleeding, infection or allergic reaction. Informed consent was obtained and documented. The patient was brought to the procedure room and placed on the exam table in a comfortable supine position. The place for needle placement was obtained by manual palpation with ultrasound confirmation. The sterile field was prepared by chloroprep and sterile drapes. Local anesthesia superficial and deep was provided by local infiltration of 2% lidocaine. A 17g 75mm radiofrequency introducer needle with a 4 mm active tip was placed overlying the right knee joint and using ultrasound guidance the needle was advanced to a bony endpoint on the superiolateral portion of the femoral condyle of the right knee. A second needle was advanced to a bony endpoint on the superiomedial portion of the femoral condyle. A third needle was then placed over the inferiomedial portion of the tibial condyle until a bony endpoint was met. 4th needle placed 3mm above the patella). Attempted aspiration yielded no blood. Transverse ultrasound views showed all the needles at 50% depth of the femur and tibia. Motor stimulation was tested at 2.0 volts with no leg movement. Images were saved in AP and lateral. A mixture consisting of 0.5% bupivacaine was slowly injected. Then a radiofrequency ablation of each of the geniculate nerves were done at 80 degrees Celsius for 2 minutes and 30 seconds each. The needles were withdrawn. The patient tolerated the procedure well. After observation the patient was discharged with instructions and follow up. They were also provided contact information to call regarding any concerning symptoms or questions. IMPRESSION: 1. Successful geniculate right knee radiofrequency ablation was performed. 2. The patient was given prescription of home medicines. 3. RTC in 1-2 week(s).
== END ==
LOC: RAD 12:38
PROVIDERS: ATTEND Family Medicine
PROC: 3E0T3TZ Introduction of Destructive Agent into Peripheral Nerves and Plexi, Percutaneous Approach (ICD-10-PCS; principal; 2017-05-08)
DX: M17.11 Unilateral primary osteoarthritis, right knee (principal)
CPT/HCPCS: 64640 ×3; J3490 ×2

== ENCOUNTER → 2017-10-02 | Outpatient (CLI) | payer MEDICARE, OTHER ==
[2017-10-02 10:50] LABS: ANION GAP 11 (5-19); BLOOD UREA NITROGEN 30 mg/dL (7-20); CALCIUM 10.5 mg/dL (8.4-10.2); CARBON DIOXIDE 28 mmol/L (22-30); CHLORIDE 103 mmol/L (98-107); CHOLESTEROL 142.58 mg/dL (0-200); GLUCOSE 105 mg/dL (75-110); POTASSIUM 4.6 mmol/L (3.6-5.0); SODIUM 141.6 mmol/L (137-145); TRIGLYCERIDES 92 mg/dL (<150)
[2017-10-02 11:04] LABS: DIRECT LDL 32 mg/dL (<100)
== END ==
LOC: OD 09:12
PROVIDERS: ATTEND Family Medicine
DX: E78.2 Mixed hyperlipidemia (principal); N40.0 Benign prostatic hyperplasia without lower urinary tract symptoms; I10 Essential (primary) hypertension; Z79.899 Other long term (current) drug therapy
CPT/HCPCS: 36415; 80048; 80061; 83036; 84153; 84443

== ENCOUNTER → 2017-10-14 | Outpatient (CLI) | payer MEDICARE, OTHER ==
[2017-10-14 19:18] LABS: FLUID TYPE SYNOVIAL
[2017-10-14 19:21] LABS: FLUID APPEARANCE TURBID; FLUID COLOR RED; FLUID SOURCE KNEE; FLUID VISCOSITY MODERATELY VISCOUS
== END ==
LOC: OD 16:39
PROVIDERS: ATTEND Orthopaedic Surgery
DX: M25.562 Pain in left knee (principal)
CPT/HCPCS: 87070; 87075; 87077; 87186; 87205; 89050

== ENCOUNTER → 2017-10-22 | Outpatient (CLI) | payer MEDICARE, OTHER ==
[2017-10-22 11:37] LABS: HEMATOCRIT 29.4 % (37.9-51.0); HEMOGLOBIN 10.2 g/dL (13.5-17.0); MEAN CORPUSCULAR HEMOGLOBIN 28.9 pg (27.0-33.4); MEAN CORPUSCULAR HGB CONC 34.7 g/dL (32.0-36.0); MEAN CORPUSCULAR VOLUME 83 fl (80-97); PLATELET COUNT 653 10^3/uL (150-450); RED BLOOD COUNT 3.53 10^6/uL (4.35-5.55); RED CELL DISTRIBUTION WIDTH 14.1 % (11.5-14.0)
[2017-10-22 11:56] LABS: ANION GAP 13 (5-19); BLOOD UREA NITROGEN 35 mg/dL (7-20); C-REACTIVE PROTEIN 89.1 mg/L (<10.0); CALCIUM 10.4 mg/dL (8.4-10.2); CARBON DIOXIDE 27 mmol/L (22-30); CHLORIDE 101 mmol/L (98-107); GLUCOSE 103 mg/dL (75-110); POTASSIUM 4.7 mmol/L (3.6-5.0)
[2017-10-22 12:18] LABS: ABSOLUTE LYMPHOCYTES# (MANUAL) 1.9 10^3/uL (0.5-4.7); ABSOLUTE MONOCYTES # (MANUAL) 1.2 10^3/uL (0.1-1.4); ABSOLUTE NEUTROPHILS# (MANUAL) 5.7 10^3/uL (1.7-8.2); BASOPHILS % (MANUAL) 1 % (0-2); EOSINOPHILS % (MANUAL) 2 % (0-6); LYMPHOCYTES % (MANUAL) 21 % (13-45); MONOCYTES % (MANUAL) 13 % (3-13); SEGMENTED NEUTROPHILS % (MAN) 63 % (42-78); TOTAL CELLS COUNTED 100
[2017-10-22 12:19] LABS: ANISOCYTOSIS SLIGHT; PLATELET COMMENT INCREASED
[2017-10-22 12:54] LABS: ERYTHROCYTE SEDIMENTATION RATE > 120 mm/hr (0-20)
== END ==
LOC: OD 10:52
PROVIDERS: ATTEND Orthopaedic Surgery
DX: M25.562 Pain in left knee (principal)
CPT/HCPCS: 36415; 80048; 85025; 85652; 86140

== ENCOUNTER → 2017-11-12 | Outpatient (CLI) | payer MEDICARE, OTHER ==
--- NOTE | 2017-11-12 09:57 | RADIOLOGY REPORT (SQ) ---
EXAM DESCRIPTION: CHEST PA/LATERAL COMPLETED DATE/TIME: 11/12/2017 9:49 am REASON FOR STUDY: PRE-OP COMPARISON: 06/25/2016. EXAM PARAMETERS: NUMBER OF VIEWS: two views TECHNIQUE: Digital Frontal and Lateral radiographic views of the chest acquired. RADIATION DOSE: NA LIMITATIONS: none FINDINGS: LUNGS AND PLEURA: No opacities, masses or pneumothorax. No pleural effusion. MEDIASTINUM AND HILAR STRUCTURES: No masses or contour abnormalities. HEART AND VASCULAR STRUCTURES: Heart normal size. No evidence for failure. BONES: No acute findings. HARDWARE: None in the chest. OTHER: No other significant finding. IMPRESSION: NO SIGNIFICANT RADIOGRAPHIC FINDING IN THE CHEST. TECHNICAL DOCUMENTATION: JOB ID: [id number] [employer]- All Rights Reserved Reading location - IP/workstation name: [facility], [facility]-RR2
[2017-11-12 10:15] LABS: APPEARANCE,URINE SLIGHTLY-CLOUDY; BILIRUBIN,URINE NEGATIVE (NEGATIVE); COLOR,URINE YELLOW; GLUCOSE, URINE NEGATIVE (NEGATIVE); KETONES,URINE NEGATIVE (NEGATIVE); LEUKOCYTE ESTERASE,URINE NEGATIVE (NEGATIVE); NITRITE,URINE NEGATIVE (NEGATIVE); PROTEIN,URINE NEGATIVE (NEGATIVE); URINE SPECIFIC GRAVITY 1.019; UROBILINOGEN,URINE NEGATIVE mg/dL (<2.0)
[2017-11-12 10:18] LABS: ABSOLUTE BASOPHILS # (AUTO) 0.1 10^3/uL (0.0-0.2); ABSOLUTE EOSINOPHILS # (AUTO) 0.6 10^3/uL (0.0-0.6); ABSOLUTE LYMPHOCYTES (AUTO) 1.5 10^3/uL (0.5-4.7); ABSOLUTE NEUT (AUTO) 6.7 10^3/uL (1.7-8.2); BASOPHILS % (AUTO) 1.2 % (0-2); EOSINOPHILS % (AUTO) 6.4 % (0-6); HEMATOCRIT 25.4 % (37.9-51.0); HEMOGLOBIN 8.7 g/dL (13.5-17.0); LYMPHOCYTES % (AUTO) 15.3 % (13-45); MEAN CORPUSCULAR HEMOGLOBIN 28.1 pg (27.0-33.4); MEAN CORPUSCULAR VOLUME 83 fl (80-97); MONOCYTES % (AUTO) 10.2 % (3-13); PLATELET COUNT 711 10^3/uL (150-450); RED BLOOD COUNT 3.08 10^6/uL (4.35-5.55); SEGMENTED NEUTROPHILS % (AUTO) 66.9 % (42-78); TOTAL CELLS COUNTED % (AUTO) 100 %; WHITE BLOOD COUNT 10.1 10^3/uL (4.0-10.5)
[2017-11-12 10:40] LABS: ANION GAP 12 (5-19); BLOOD UREA NITROGEN 30 mg/dL (7-20); CALCIUM 10.4 mg/dL (8.4-10.2); CARBON DIOXIDE 26 mmol/L (22-30); CHLORIDE 104 mmol/L (98-107); GLUCOSE 98 mg/dL (75-110); POTASSIUM 5.4 mmol/L (3.6-5.0); SODIUM 142.1 mmol/L (137-145)
--- NOTE | 2017-11-12 22:05 | EKG REPORT ---
SEVERITY:- NORMAL ECG - SINUS RHYTHM : Confirmed by: Wilfredo Finney 12-Nov-2017 22:05:06
== END ==
LOC: OD 09:05
PROVIDERS: ATTEND Orthopaedic Surgery
DX: Z01.810 Encounter for preprocedural cardiovascular examination (principal); Z01.812 Encounter for preprocedural laboratory examination; Z01.818 Encounter for other preprocedural examination
CPT/HCPCS: 36415; 71046; 80048; 81001; 85025; 93005; 93010

== ENCOUNTER 2017-12-08 05:25 | Inpatient (IN) | payer MEDICARE, OTHER ==
[~2017-12-08 05:25] MED LIST changes: -BUPIVACAINE HCL 0.5 % INJ/PF 30 ML SDV ONE; +BUPIVACAINE INJ/PF LIPOSOME/PF 266 MG/20 ML SDV IJ PRN; +CEFAZOLIN INJ 1 GM VIAL IV PRN; +IBUPROFEN 800 MG in DEXTROSE 5%-WATER 250 ML IV PRN; +IBUPROFEN 800 MG/NS 250 ML IV PRN; +LACTATED RINGERS 1000 ML IV PRN; +LANSOPRAZOLE 15 MG TAB.RAP.DR PO PRN; +LIDOCAINE 0.5% INJ-PF (5 MG/ML) 50 ML SDV SUBCUT PRN; -LIDOCAINE 1% INJ-PF (10 MG/ML) 30 ML SDV ONE; +OXYCODONE HCL SR 10 MG TABLET PO PRN; +VANCOMYCIN HCL 1,000 MG in DEXTROSE 5%-WATER 250 ML IV PRN
[2017-12-08] MEDS ORDERED: LIDOCAINE 2% INJ-PF (20 MG/ML) 10 ML AMPUL ONE (06:38)
[2017-12-08] MEDS ORDERED: FENTANYL CITRATE INJ/PF 100 MCG/2 ML AMPUL ONE (06:39)
[2017-12-08] MEDS ORDERED: ACETAMINOPHEN 0 MG/0 ML RTUPB IV ONE (06:39)
[2017-12-08] MEDS ORDERED: MIDAZOLAM 2 MG/2 ML INJ ONE (06:39)
[2017-12-08] MEDS ORDERED: PROPOFOL INJ 200 MG/20 ML VIAL IV ONE ×3 (06:39→09:56)
[2017-12-08] MEDS ORDERED: TRANEXAMIC ACID INJ/PF 1,000 MG/10 ML SDV IV ONE ×2 (06:39→11:30)
[2017-12-08] MEDS ORDERED: BUPIVACAINE HCL/DEX-WATER/PF 15 MG/2 ML AMPULE ONE (06:40)
[2017-12-08] MEDS ORDERED: THROMBIN (BOVINE) TOPICAL 20000 UNIT VIAL ONE (07:11)
[2017-12-08] MEDS ORDERED: BUPIVACAINE INJ/PF LIPOSOME/PF 266 MG/20 ML SDV ONE (07:12)
[2017-12-08] MEDS ORDERED: THROMBIN (BOVINE) 5000 UNIT EPITAXIS KIT ONE (07:12)
[2017-12-08] MEDS ORDERED: VANCOMYCIN HCL INJ 1000 MG VIAL ONE ×3 (07:17→09:36)
[2017-12-08] MEDS ORDERED: ONDANSETRON HCL INJ/PF 4 MG/2 ML SDV ONE (07:19)
[2017-12-08] MEDS ORDERED: EPINEPHRINE INJ/PF 1 MG/1 ML AMPULE ONE (07:21)
[2017-12-08 07:30] LABS: HEMATOCRIT 30.3 % (37.9-51.0); HEMOGLOBIN 10.1 g/dL (13.5-17.0); MEAN CORPUSCULAR HEMOGLOBIN 27.3 pg (27.0-33.4); MEAN CORPUSCULAR HGB CONC 33.3 g/dL (32.0-36.0); MEAN CORPUSCULAR VOLUME 82 fl (80-97); PLATELET COUNT 620 10^3/uL (150-450); RED CELL DISTRIBUTION WIDTH 15.2 % (11.5-14.0)
[2017-12-08] MEDS ORDERED: FENTANYL CITRATE INJ/PF 100 MCG/2 ML AMPUL IV PRN ×3 (08:20)
[2017-12-08] MEDS ORDERED: MEPERIDINE HCL/PF INJ 25 MG/1 ML DISP.SYRIN IV PRN (08:20)
[2017-12-08] MEDS ORDERED: MORPHINE SULFATE 10 MG/ML INJ IV PRN ×6 (08:20→11:00)
[2017-12-08] MEDS ORDERED: DIPHENHYDRAMINE HCL 50 MG/ML VIAL IV PRN ×3 (08:20→11:00)
[2017-12-08] MEDS ORDERED: OXYCODONE-ACETAMINOPHEN 5-325 MG TABLET PO PRN ×2 (08:20)
[2017-12-08] MEDS ORDERED: PROMETHAZINE HCL INJ 25 MG/1 ML VIAL IV PRN ×2 (08:20)
[2017-12-08] MEDS ORDERED: PHENYLEPHRINE HCL INJ/PF 10 MG/1 ML SDV ONE (09:52)
[2017-12-08] MEDS ORDERED: GLYCOPYRROLATE 1 MG/5 ML SYRINGE ONE (09:52)
[2017-12-08] MEDS ORDERED: ONDANSETRON HCL INJ/PF 4 MG/2 ML SDV IV PRN (10:23)
[2017-12-08] MEDS ORDERED: RINGERS SOLUTION,LACTATED 1,000 ML IV PRN (10:23)
[2017-12-08] MEDS ORDERED: MAG HYDROX/AL HYDROX/SIMETH SUSP 30 ML UDCUP PO PRN (10:23)
[2017-12-08] MEDS ORDERED: ZOLPIDEM TARTRATE 5 MG TABLET PO PRN (10:23)
[2017-12-08] MEDS ORDERED: OXYCODONE HCL IR 5 MG TABLET PO PRN ×3 (10:23→19:36)
[2017-12-08] MEDS ORDERED: ONDANSETRON 4 MG TAB.RAPDIS PO PRN ×2 (10:23→11:00)
[2017-12-08] MEDS ORDERED: ACETAMINOPHEN 325 MG TABLET PO PRN (10:23)
--- NOTE | 2017-12-08 10:37 | Operative Report ---
Operative Report DATE OF SURGERY: 12/08/17 PREOPERATIVE DIAGNOSIS: Left periprosthetic knee infection OPERATION: 1 stage revision left knee arthroplasty SURGEON: SUZETTE HOGAN ANESTHESIA: Spinal TISSUE REMOVED OR ALTERED: Cultures to microbiology. Tissue implants to pathology ESTIMATED BLOOD LOSS: 150 PROCEDURE: Implants used: Femur: Gabo triathlon size 7 TLS femur, 20 mm x 150 mm femoral stem, 5 mm posterior medial augment, medial and lateral 10 mm distal augment Tibia: Size 6 tibia, size D cone, 16 mm x 115 mm stem, medial and lateral 10 mm augments Tibial liner: 16 mm TS insert Patella: None Rationale: Patient is a 72-year-old white male status post multiple left knee surgeries now with a recurrent left periprosthetic knee infection. The patient is a very large man and has contralateral knee issues as well. We discussed one stage of two-stage reconstruction for periprosthetic infection. In light of the patient's size and functional capacity we made a decision to proceed with a one stage reconstruction and except slightly higher potential recurrence rate. This was in light of a relatively non-virulent bacteria identified by arthrocentesis. Procedure with the patient supine on the operating table the left the limb is prepped and draped in a sterile fashion. The limb was elevated for exsanguination and the tourniquet inflated to 280 torr. A midline incision was made with the previous surgical approach. Subsequent medial parapatellar incisions were made to the retinacular layer. There is great difficulty in mobilizing the patella at this point. Subsequent quadriceps snip was performed. The existing implants are removed uneventfully. There is no patella to be removed. Subsequently a very aggressive synovectomy and cleanup of the joint is performed followed by irrigation with saline containing bacitracin of 3 L using pulse lavage. The tibia was prepared initially with cylindrical reaming until 16 mm reamer is seated to a depth of 175 mm. Subsequently a surface cut is performed off the proximal tibia to prepare the surface for an implant. The cone reamer is used to prepare the tibia for size D Cone. Trial implant is seated and when placed to protect the proximal tibia through the remainder of the case. Attention was now turned to the femur. The femur was repaired using a cylindrical reamer until a 20 mm reamer is seated to a depth of 175 mm. The distal femoral cuts were then refreshed using appropriate jig. A trial reduction is now performed and to feel the soft tissue envelope a size 31 tibial spacer is required. It is felt a better alternative is to build down the femur by 10 mm and build up the tibia by 10 mm. The implants are assembled on the back table. The bone is impacted into the tibia. The implants were then vented into the appropriate locations using vancomycin loaded polymethylmethacrylate cement. Following adequate curing of cement spacer trials were again performed and is felt that a 16 mm spacer provided adequate soft tissue filling to prevent hyperextension. This is inserted. The tourniquet is then deflated. The wound is again irrigated with 3 L normal saline containing bacitracin. The wound was then closed in layers with interrupted pDS followed by flaco. A sterile compressive dressing was applied and the patient's return to the PACU in satisfactory condition.
[2017-12-08] MEDS: FENTANYL CITRATE INJ/PF 100 MCG/2 ML AMPUL ONE ×2 (11:00→11:05)
[2017-12-08] MEDS ORDERED: MORPHINE SULFATE 10 MG/ML INJ ONE (11:14)
--- NOTE | 2017-12-08 11:43 | RADIOLOGY REPORT (SQ) ---
EXAM DESCRIPTION: KNEE LEFT 2 VIEWS COMPLETED DATE/TIME: 12/08/2017 11:11 am REASON FOR STUDY: Post OP -Long Cassette in PACU T84.54XA INFECT/INFLM REACTION DUE TO INTERNAL LEF T KNEE PRO COMPARISON: 07/31/2015 NUMBER OF VIEWS: Two view(s). TECHNIQUE: Digital radiographic images of the left knee post-procedure. LIMITATIONS: None. FINDINGS: BONES: No worrisome or unexpected findings post-procedure. DEVICE: Total knee arthroplasty. SOFT TISSUES: No worrisome findings. Expected postoperative soft tissue changes. BONES:No acute fracture or dislocation. No worrisome bone lesions. IMPRESSION: SATISFACTORY POSTOPERATIVE LEFT KNEE. TECHNICAL DOCUMENTATION: JOB ID: [id number] [employer]- All Rights Reserved Reading location - IP/workstation name: [email or web address]
[2017-12-08] MEDS: FENTANYL 100 MCG/HR PATCH.TD72 TOP SCH (12:27)
[2017-12-08] MEDS: LOSARTAN POTASSIUM 50 MG TABLET PO SCH (12:28)
[2017-12-08] MEDS: MORPHINE SULFATE 10 MG/ML INJ IM PRN ×4 (13:55→20:27)
[2017-12-08] MEDS ORDERED: IBUPROFEN 800 MG in NORMAL SALINE 250 ML IV SCH (14:00)
[2017-12-08] MEDS: IBUPROFEN 800 MG in DEXTROSE 5%-WATER 250 ML IV SCH ×2 (15:27→22:24)
[2017-12-08] MEDS: SENNOSIDES/DOCUSATE 8.6-50 MG 1 EACH TABLET PO SCH (17:29)
[2017-12-08] MEDS: FINASTERIDE 5 MG TABLET PO SCH (17:29)
[2017-12-08] MEDS ORDERED: PREGABALIN 75 MG CAPSULE PO SCH ×2 (18:00)
[2017-12-08] MEDS ORDERED: OXYCODONE HCL SR 10 MG TABLET PO SCH ×2 (22:00)
[2017-12-08] MEDS: PREGABALIN 100 MG CAPSULE PO SCH (22:20)
[2017-12-08] MEDS: SIMVASTATIN 10 MG TABLET PO SCH (22:20)
[2017-12-08] MEDS: TAMSULOSIN HCL 0.4 MG CAP.SR.24H PO SCH (22:20)
[2017-12-08] MEDS ORDERED: VANCOMYCIN HCL 1,000 MG in DEXTROSE 5%-WATER 250 ML IV ONE (22:23)
[2017-12-08] MEDS: FENOFIBRATE NANOCRYSTALLIZED 145 MG TABLET PO SCH (22:25)
[2017-12-08] MEDS: MORPHINE SULFATE 60 MG/60 ML RTUINJ IV PRN (22:29)
[2017-12-08] MEDS: VANCOMYCIN HCL 2,000 MG in DEXTROSE 5%-WATER 500 ML IV SCH (23:10)
[2017-12-09] MEDS: IBUPROFEN 800 MG in DEXTROSE 5%-WATER 250 ML IV SCH ×3 (05:14→23:03)
[2017-12-09] MEDS: LANSOPRAZOLE 15 MG TAB.RAP.DR PO SCH (05:14)
[2017-12-09] MEDS: PREGABALIN 100 MG CAPSULE PO SCH ×3 (05:17→23:03)
[2017-12-09] MEDS ORDERED: LANSOPRAZOLE 30 MG TAB.RAP.DR PO SCH ×2 (06:00→10:00)
[2017-12-09 06:53] LABS: HEMATOCRIT 23.9 % (37.9-51.0); MEAN CORPUSCULAR HEMOGLOBIN 27.5 pg (27.0-33.4); MEAN CORPUSCULAR HGB CONC 33.6 g/dL (32.0-36.0); MEAN CORPUSCULAR VOLUME 82 fl (80-97); PLATELET COUNT 413 10^3/uL (150-450); RED BLOOD COUNT 2.92 10^6/uL (4.35-5.55); RED CELL DISTRIBUTION WIDTH 15.2 % (11.5-14.0); WHITE BLOOD COUNT 8.1 10^3/uL (4.0-10.5)
--- NOTE | 2017-12-09 07:01 | PDOC PROGRESS REPORT ---
Subjective Progress Note for:: 12/09/17 Reason For Visit: T84.54XA INFECT/INFLM REACTION DUE TO INTERNAL LEF 72-year-old white male postop day 1 from a 1 stage left knee revision arthroplasty for periprosthetic infection. Physical Exam Vital Signs: Temp Pulse Resp BP Pulse Ox 36.9 C 86 16 127/69 H 92 12/08/17 23:30 12/08/17 23:30 12/08/17 23:30 12/08/17 23:30 12/08/17 23:30 Intake & Output 12/07/17 12/08/17 12/09/17 06:59 06:59 06:59 Intake Total 0 86281 Output Total 20117 Balance 0 -181 Weight 122 kg General appearance: PRESENT: mild distress Head exam: PRESENT: normocephalic Respiratory exam: PRESENT: unlabored Cardiovascular exam: PRESENT: RRR Vascular exam: PRESENT: normal capillary refill GI/Abdominal exam: PRESENT: soft Rectal exam: PRESENT: deferred Extremities exam: PRESENT: other - Left lower extremity dressing clean dry and intact. Distal neurovascular examination is intact. Neurological exam: PRESENT: alert, awake, oriented to person, oriented to place , oriented to time, oriented to situation. ABSENT: motor sensory deficit Psychiatric exam: PRESENT: appropriate affect, normal mood. ABSENT: homicidal ideation, suicidal ideation Skin exam: PRESENT: dry, intact, warm. ABSENT: cyanosis, rash Results Laboratory Results: 12/08/17 05:57 WBC 9.0 RBC 3.70 L Hgb 10.1 L Hct 30.3 L MCV 82 MCH 27.3 MCHC 33.3 RDW 15.2 H Plt Count 620 H Impressions: Knee X-Ray 12/08/17 10:24 IMPRESSION: SATISFACTORY POSTOPERATIVE LEFT KNEE. Status: Imported from PACS Assessment & Plan - Diagnosis (1) Infection of knee Is this a current diagnosis for this admission?: Yes Plan: 72-year-old white male status post one stage reconstruction of a left periprosthetic knee infection. Patient is reasonably comfortable overnight. Appreciate pain management's input in terms of maintaining his appropriate analgesia. Patient be mobilized with physical therapy and weightbearing as tolerated basis. Discharge plan pending assessment of function. - Time Time Spent with patient: 15-24 minutes Anticipated discharge: Other Within: Other - Plan Summary Plan Summary: 72-year-old white male status post one stage reconstruction left knee arthroplasty. Culture and sensitivities are pending. Patient be mobilized on a weightbearing as tolerated basis. Discharge planning pending functional analysis.
[2017-12-09 07:10] LABS: ANION GAP 8 (5-19); BLOOD UREA NITROGEN 19 mg/dL (7-20); CALCIUM 9.3 mg/dL (8.4-10.2); CARBON DIOXIDE 26 mmol/L (22-30); CHLORIDE 107 mmol/L (98-107); GLUCOSE 115 mg/dL (75-110); POTASSIUM 4.4 mmol/L (3.6-5.0); SODIUM 140.6 mmol/L (137-145)
[2017-12-09] MEDS: LEVOTHYROXINE SODIUM 0.05 MG TABLET PO SCH (07:45)
[2017-12-09] MEDS ORDERED: (PENDING PHARMACY ID) (Telmisartan [Micardis 80 Mg Tablet] 80 MG) PO SCH (08:00)
[2017-12-09] MEDS ORDERED: (PENDING PHARMACY ID) (Pantoprazole Sodium [Protonix] 20 MG) PO SCH (10:00)
[2017-12-09] MEDS: VANCOMYCIN HCL 2,000 MG in DEXTROSE 5%-WATER 500 ML IV SCH ×2 (10:19→23:05)
[2017-12-09] MEDS: ACETAMINOPHEN 325 MG TABLET PO SCH ×4 (10:20→23:04)
[2017-12-09] MEDS: FUROSEMIDE 40 MG TABLET PO SCH (10:20)
[2017-12-09] MEDS: PRENATAL VITAMIN W DHA CAPSULE PO SCH (10:20)
[2017-12-09] MEDS: LOSARTAN POTASSIUM 50 MG TABLET PO SCH (10:20)
[2017-12-09] MEDS: SENNOSIDES/DOCUSATE 8.6-50 MG 1 EACH TABLET PO SCH ×2 (10:20→17:40)
[2017-12-09] MEDS: MORPHINE SULFATE 60 MG/60 ML RTUINJ IV PRN (14:07)
[2017-12-09] MEDS: FINASTERIDE 5 MG TABLET PO SCH (17:40)
[2017-12-09] MEDS ORDERED: POLYETHYLENE GLYCOL 3350 POWDER 17 GM/1 PACKET PO PRN (19:05)
[2017-12-09] MEDS ORDERED: MORPHINE SULFATE 10 MG/ML INJ IV PRN (19:05)
[2017-12-09] MEDS: MORPHINE SULFATE IR 30 MG TABLET PO PRN (19:54)
[2017-12-09] MEDS ORDERED: POLYETHYLENE GLYCOL 3350 POWDER 17 GM/1 PACKET PO ONE ×2 (20:00→23:00)
--- NOTE | 2017-12-09 21:11 | PROGRESS NOTE E ---
Progress Note NAME: JAYLON GREEN : 1945 AGE: 72Y DATE: 12/09/2017 ROOM: 433 SUBJECTIVE: The patient was started on the BANQUET ATTENDANT morphine overnight. He has actually done quite well with this. He has been pleased with his pain relief overnight and has been using his BANQUET ATTENDANT quite a bit less through the day today. He states that he did get up with physical therapy but this was stopped due to some leakage and drainage from his dressing sites. I am here today and he is having his dressings changed. OBJECTIVE: VITAL SIGNS: Temperature 98, blood pressure 100/53, pulse 68, respiratory rate 19, pain 1/5 on a numeric rating scale. GENERAL: The patient is sitting up in bed, appears to be quite comfortable. He is undergoing dressing change with no difficulty. ASSESSMENT AND PLAN: The patient is a 72-year-old male, as previously noted, with chronic pain hx, on high-dose opioids, now postop day 1 status post revision of left knee prosthesis. He is doing well in the postoperative timeframe but recounts to me that he is hopeful to be discharged to home tomorrow. We have had a long discussion about different options for pain medications and we will try to transition to oral medications overnight at the patient's request so that he may be able to consider going home with a regimen that will cover her. As he has done quite well with the BANQUET ATTENDANT morphine, we have decided to give immediate release morphine a try. He has had good results with his fentanyl patch, though sometimes requiring more. We are going to try to see how he does with 100 mcg fentanyl patch without escalation and transition from IV to p.o. morphine 30 mg immediate release q.i.d. p.r.n. I have recommended he stay with the pregabalin as well, 100 mg p.o. t.i.d. as an adjuvant pain medication as well as scheduled acetaminophen. We will see how he does with this transition. If this is not helpful, we will consider a switching back to oxycodone and potentially revisiting fentanyl at a 150 mcg/hour. The patient may be a good candidate for consideration of methadone therapy for pain relief in the future, though this could well be done on an outpatient basis. DICTATING PHYSICIAN: VINNY ABEBE M.D. [id number] PHY#: [id number] ID: [id number] JOB#: [id number] ACCT: [id number] cc: >
[2017-12-09] MEDS: TAMSULOSIN HCL 0.4 MG CAP.SR.24H PO SCH (23:02)
[2017-12-09] MEDS: FENOFIBRATE NANOCRYSTALLIZED 145 MG TABLET PO SCH (23:02)
[2017-12-09] MEDS: SIMVASTATIN 10 MG TABLET PO SCH (23:04)
[2017-12-10] MEDS: MORPHINE SULFATE IR 30 MG TABLET PO PRN ×4 (02:02→21:17)
[2017-12-10] MEDS: LANSOPRAZOLE 15 MG TAB.RAP.DR PO SCH (06:07)
[2017-12-10] MEDS: IBUPROFEN 800 MG in DEXTROSE 5%-WATER 250 ML IV SCH ×3 (06:07→21:16)
[2017-12-10] MEDS: ACETAMINOPHEN 325 MG TABLET PO SCH ×3 (06:07→21:18)
[2017-12-10] MEDS: PREGABALIN 100 MG CAPSULE PO SCH ×3 (06:07→21:18)
[2017-12-10 06:54] LABS: HEMATOCRIT 22.1 % (37.9-51.0); MEAN CORPUSCULAR HEMOGLOBIN 27.2 pg (27.0-33.4); MEAN CORPUSCULAR HGB CONC 33.6 g/dL (32.0-36.0); MEAN CORPUSCULAR VOLUME 81 fl (80-97); PLATELET COUNT 406 10^3/uL (150-450); RED BLOOD COUNT 2.73 10^6/uL (4.35-5.55); RED CELL DISTRIBUTION WIDTH 14.9 % (11.5-14.0); WHITE BLOOD COUNT 7.2 10^3/uL (4.0-10.5)
[2017-12-10 07:22] LABS: HEMOGLOBIN 7.4 g/dL (13.5-17.0)
--- NOTE | 2017-12-10 08:26 | CONSULTATION REPORT E ---
Consultation Report NAME: JAYLON GREEN : 1945 AGE: 72Y DATE: 12/08/2017 433 A TO: VINNY ABEBE M.D. FROM: Requesting Physician CHIEF COMPLAINT: Acute pain status post surgery in a patient on chronic pain meds. REQUESTING PHYSICIAN: Dr. Navid Calhoun. CHIEF COMPLAINT: Knee pain. HISTORY OF PRESENT ILLNESS: The patient is a 72-year-old male with a past medical history of hypertension, COPD, osteoarthritis, GERD, hypercholesterolemia and IgG monoclonal gammopathy who has unfortunately had multiple surgeries following an infected knee prosthesis. The patient was admitted for recurrent infection and underwent a one-stage revision left knee arthroscopy. Cultures sent. I have been consulted for assistance with management of postoperative pain in a patient who is currently on high dose opioid therapy. Per patient, he has been having increased knee pain bilaterally, worse on the left. He has been followed by pain management and is currently using fentanyl 150 mcg q.48 hours as well as oxycodone 15 mg p.o. q.i.d. The patient states that his pain is frequently intolerable. He was previously on OxyContin per his report and he has also used Subsys. The patient notes that he went through multiple Subsys sprays through the day as he is only provided approximately 30 minutes of pain relief. He notes that the pain greatly limits him from being able to get up and move about from walking and ambulation. He would like to discuss what more can be done for his pain and the postoperative time frame. He has gotten morphine IV and states that this usually works pretty well for him but he has not noted any benefit from a 2 mg IV dosing that he has been getting postoperatively. He rates his pain as a 10 out of 10 on a numeric rating scale. It is mostly to the left knee. PAST MEDICAL HISTORY: 1. Iron deficiency anemia. 2. COPD. 3. Hyperlipidemia. 4. Hypertension. 5. History of pulmonary embolism in 2014. 6. Iron deficiency anemia status post multiple blood transfusions. 7. Hypothyroidism. 8. Gastroesophageal reflux disease. 9. Osteoarthritis. 10. IgG monoclonal gammopathy. PAST SURGICAL HISTORY: 1. Patient is status post bilateral knee replacement. He reports that he has had 12 surgeries on his left knee. 2. Right rotator cuff repair. SOCIAL HISTORY: Former smoker. Denies any alcohol or recreational drug use. FAMILY HISTORY: Hypertension, otherwise noncontributory. Notably, patient has a history of alcohol abuse but has been sober for 26 years. HOME MEDICATIONS: 1. Flomax. 2. Simvastatin. 3. Mobic 15 mg p.o. q. daily. 4. Fentanyl 150 mcg q.48 hours. 5. Vitamin C. 6. Tricor. 7. Benadryl. 8. Docusate 9. Flexeril 10 mg p.o. t.i.d. p.r.n. 10. Cinnamon bark. 11. Levothyroxine 50 mcg p.o. q.a.m. 12. Finasteride. 13. Protonix. 14. Niacin. 15. Multivitamin. 16. Melatonin. 17. *------*. 18. *------* 19. Furosemide. 20. Oxycodone 50 mg p.o. q.i.d. p.r.n. REVIEW OF SYSTEMS: GENERAL: The patient endorses some mild constipation today. Complains of severe pain in the left knee, some mild pain in bilateral hips. He denies back pain at current. He denies any chest pain, cough, wheezing, etcetera. Please see HPI for remainder of review of systems. PHYSICAL EXAMINATION: VITAL SIGNS: Temperature 98.3, blood pressure 109/58, respiratory rate 17, sating 98% on room air. Pain currently 10 out of 10 on numeric rating scale. GENERAL: Patient is pleasant, obese male who is sitting in his hospital bed. He did not appear to be in any acute distress though he endorses that he is in excruciating pain. HEENT: Head is normocephalic/atraumatic. The patient wears glasses. GI: Abdomen soft, nontender, nondistended. CARDIOVASCULAR: Pulse is regular. RESPIRATORY: Even unlabored work of breathing. EXTREMITIES: Left extremity is dressed and wrapped in the postoperative time frame. NEUROLOGICAL: The patient has no gross neurologic deficits. IMPRESSION: A 72-year-old male with chronic pain syndrome and recurrent infection in left knee prosthesis. Patient is in the acute postoperative phase. Given severe pain, I have recommended the patient to be placed on a MEDIA SALES EXECUTIVE morphine overnight. Notably, he is only on fentanyl 10 mcg q. 48 hours at this time. I do not recommend increase in dosing at this juncture. We will see how he does with the MEDIA SALES EXECUTIVE and determine if we need to add the remainder of the long-acting back to his regimen. In the meantime, would discontinue morphine IM and IV boluses. I will allow for oxycodone 20 mg p.o. q.4 hours p.r.n. if the patient has difficulty with MEDIA SALES EXECUTIVE but I am hopeful that this will provide him adequate, immediate postoperative analgesia. Additionally, recommend scheduled acetaminophen 975 p.o. t.i.d. as well as pregabalin 100 mg p.o. t.i.d. The patient is also recommended to be on a bowel regimen. Thank you very much for this interesting consultation. Will continue to follow along with the patient daily. DICTATING PHYSICIAN: VINNY ABEBE M.D. [id number] PHY#: [id number] ID: [id number] JOB#: [id number] ACCT: [id number] cc:VINNY ABEBE M.D. >
[2017-12-10] MEDS: PRENATAL VITAMIN W DHA CAPSULE PO SCH (09:56)
[2017-12-10] MEDS: FUROSEMIDE 40 MG TABLET PO SCH (09:56)
[2017-12-10] MEDS: LEVOTHYROXINE SODIUM 0.05 MG TABLET PO SCH (09:57)
[2017-12-10] MEDS: SENNOSIDES/DOCUSATE 8.6-50 MG 1 EACH TABLET PO SCH ×2 (09:58→18:27)
[2017-12-10] MEDS: VANCOMYCIN HCL 2,000 MG in DEXTROSE 5%-WATER 500 ML IV SCH (09:58)
[2017-12-10 11:31] LABS: VANCOMYCIN,TROUGH 18.8 ug/mL (5.0-20.0)
[2017-12-10] MEDS: FENTANYL 100 MCG/HR PATCH.TD72 TOP SCH (15:23)
[2017-12-10] MEDS ORDERED: MORPHINE SULFATE IR 30 MG TABLET ONE (15:32)
[2017-12-10] MEDS: FINASTERIDE 5 MG TABLET PO SCH (18:27)
[2017-12-10] MEDS: LOSARTAN POTASSIUM 50 MG TABLET PO SCH ×2 (19:47→21:19)
[2017-12-10] MEDS: SIMVASTATIN 10 MG TABLET PO SCH (21:18)
[2017-12-10] MEDS: TAMSULOSIN HCL 0.4 MG CAP.SR.24H PO SCH (21:18)
[2017-12-10] MEDS: FENOFIBRATE NANOCRYSTALLIZED 145 MG TABLET PO SCH (21:20)
[2017-12-10] MEDS: VANCOMYCIN HCL 1,500 MG in DEXTROSE 5%-WATER 250 ML IV SCH (21:22)
[2017-12-11] MEDS: MORPHINE SULFATE IR 30 MG TABLET PO PRN ×3 (04:14→17:33)
[2017-12-11] MEDS: PREGABALIN 100 MG CAPSULE PO SCH ×3 (05:27→21:43)
[2017-12-11] MEDS: LANSOPRAZOLE 15 MG TAB.RAP.DR PO SCH (05:27)
[2017-12-11] MEDS: ACETAMINOPHEN 325 MG TABLET PO SCH ×3 (05:27→21:44)
[2017-12-11] MEDS: IBUPROFEN 800 MG in DEXTROSE 5%-WATER 250 ML IV SCH ×3 (05:28→23:30)
[2017-12-11 06:17] LABS: HEMATOCRIT 22.3 % (37.9-51.0); MEAN CORPUSCULAR HEMOGLOBIN 26.8 pg (27.0-33.4); MEAN CORPUSCULAR HGB CONC 33.1 g/dL (32.0-36.0); MEAN CORPUSCULAR VOLUME 81 fl (80-97); PLATELET COUNT 443 10^3/uL (150-450); RED BLOOD COUNT 2.76 10^6/uL (4.35-5.55); WHITE BLOOD COUNT 6.5 10^3/uL (4.0-10.5)
[2017-12-11 06:20] LABS: HEMOGLOBIN 7.4 g/dL (13.5-17.0)
--- NOTE | 2017-12-11 06:25 | PDOC PROGRESS REPORT ---
Subjective Progress Note for:: 12/11/17 Reason For Visit: T84.54XA INFECT/INFLM REACTION DUE TO INTERNAL LEF 72-year-old white male postop day 3 status post left knee revision arthroplasty. Patient makes excellent progress with physical therapy yesterday. Hematocrit stable at 22%. Staph epi are growing from intraoperative cultures. Patient maintained on vancomycin. PICC line ordered for today. Physical Exam Vital Signs: Temp Pulse Resp BP Pulse Ox 36.4 C 62 18 111/65 99 12/10/17 23:21 12/10/17 23:21 12/10/17 23:21 12/10/17 23:21 12/10/17 23:21 Intake & Output 12/09/17 12/10/17 12/11/17 06:59 06:59 06:59 Intake Total 22618 2680 2928 Output Total 90650 2343 3050 Balance -121 335 -122 Weight 122 kg 130.8 kg 130.2 kg General appearance: PRESENT: no acute distress, mild distress Head exam: PRESENT: normocephalic Respiratory exam: PRESENT: unlabored Cardiovascular exam: PRESENT: RRR Pulses: PRESENT: +1 pedal pulses bilateral Vascular exam: PRESENT: normal capillary refill GI/Abdominal exam: PRESENT: soft Rectal exam: PRESENT: deferred Extremities exam: PRESENT: other - Left knee dressing with continued serosanguineous ooze. Dressing is changed today. Wound is well approximated flaco. There is no erythema at the edges. There is minor pedal edema. Distal neurovascular examination is intact. Neurological exam: PRESENT: alert, awake, oriented to person, oriented to place , oriented to time, oriented to situation. ABSENT: motor sensory deficit Psychiatric exam: PRESENT: appropriate affect, normal mood. ABSENT: homicidal ideation, suicidal ideation Skin exam: PRESENT: dry, intact, warm. ABSENT: cyanosis, rash Results Laboratory Results: 12/11/17 05:48 12/09/17 06:26 12/10/17 12/11/17 05:49 05:48 WBC 7.2 6.5 RBC 2.73 L 2.76 L Hgb 7.4 L 7.4 L Hct 22.1 L 22.3 L MCV 81 81 MCH 27.2 26.8 L MCHC 33.6 33.1 RDW 14.9 H 15.0 H Plt Count 406 443 Impressions: Knee X-Ray 12/08/17 10:24 IMPRESSION: SATISFACTORY POSTOPERATIVE LEFT KNEE. Status: Imported from PACS Assessment & Plan - Diagnosis (1) Infection of knee Is this a current diagnosis for this admission?: Yes Plan: Plan for 6 weeks of IV vancomycin therapy. PICC line ordered for today. Anticipate discharge home tomorrow with home health services. - Time Time Spent with patient: 15-24 minutes Anticipated discharge: Home with Homehealth Within: within 24 hours
--- NOTE | 2017-12-11 06:26 | PDOC PROGRESS REPORT ---
Subjective Progress Note for:: 12/10/17 Reason For Visit: T84.54XA INFECT/INFLM REACTION DUE TO INTERNAL LEF 72-year-old white male status post left knee revision arthroplasty postop day 2. Patient made limited progress with physical therapy yesterday ambulating 15 feet. Physical Exam Vital Signs: Temp Pulse Resp BP Pulse Ox 36.4 C 81 14 117/58 L 96 12/09/17 23:12 12/09/17 23:12 12/09/17 23:12 12/09/17 23:12 12/09/17 23:12 Intake & Output 12/09/17 12/10/17 12/11/17 06:59 06:59 06:59 Intake Total 72513 2680 250 Output Total 65906 2345 Balance -121 335 250 Weight 122 kg 130.8 kg General appearance: PRESENT: no acute distress, mild distress Head exam: PRESENT: normocephalic Ear exam: PRESENT: other - Hard of hearing Respiratory exam: PRESENT: unlabored Cardiovascular exam: PRESENT: RRR Pulses: PRESENT: +1 pedal pulses bilateral Results Laboratory Results: 12/10/17 05:49 12/09/17 06:26 12/10/17 05:49 WBC 7.2 RBC 2.73 L Hgb 7.4 L Hct 22.1 L MCV 81 MCH 27.2 MCHC 33.6 RDW 14.9 H Plt Count 406 Impressions: Knee X-Ray 12/08/17 10:24 IMPRESSION: SATISFACTORY POSTOPERATIVE LEFT KNEE. Assessment & Plan - Diagnosis (1) Infection of knee Is this a current diagnosis for this admission?: Yes
[2017-12-11] MEDS: LEVOTHYROXINE SODIUM 0.05 MG TABLET PO SCH (08:58)
[2017-12-11] MEDS: FUROSEMIDE 40 MG TABLET PO SCH (09:00)
[2017-12-11] MEDS: SENNOSIDES/DOCUSATE 8.6-50 MG 1 EACH TABLET PO SCH ×2 (09:00→17:34)
[2017-12-11] MEDS: PRENATAL VITAMIN W DHA CAPSULE PO SCH (09:00)
[2017-12-11] MEDS: VANCOMYCIN HCL 1,500 MG in DEXTROSE 5%-WATER 250 ML IV SCH ×2 (09:02→21:49)
[2017-12-11] MEDS ORDERED: NORMAL SALINE 10 ML SDV (AFTER EACH USE) IV PRN (15:03)
--- NOTE | 2017-12-11 15:29 | RADIOLOGY REPORT (SQ) ---
EXAM DESCRIPTION: PICC INSERTION; FLUORO/CV PLACEMENT; U/S GUIDE FOR VASCULAR ACCESS COMPLETED DATE/TIME: 12/11/2017 3:13 pm REASON FOR STUDY: can not obtain iv access; IV ABX T84.54XA INFECT/INFLM REACTION DUE TO INTERNAL L EFT KNEE PRO COMPARISON: Chest film 11/12/2017 FLUOROSCOPY TIME: 1 minutes 34 seconds 4 digital C-arm images and 1 ultrasound images saved to PACS. TECHNIQUE: Fluoroscopic and ultrasound guided PICC placement. LIMITATIONS: None. PROCEDURE: After written consent and assessment were obtained, the patient was brought into the [facility] roscopy room and place supine on the table. Ultrasound evaluation of potential access sites were perf ormed. After successfully identifying a patent left basilic, the left arm was prepped and draped in a sterile fashion along with the ultrasound probe. The entry site was anesthetized with 1% lidocaine. A 21 gauge 7 cm needle was advanced through the skin and into the basilic vein under live ultrasound guidance. An ultrasound image was saved to PACS confirming access site. A .018 guide wire was then inserted through the needle and into the venous system. The needle was the removed and an 11 blade sc alpel was used to make a 1cm skin incision. A 5 fr peel-away sheath was advanced over the wire and i nto the venous system. A measurement was then made using the existing wire and live fluoroscopic guid ance. The wire was then removed and the trimmed. The PICC was advanced through the peel-away sheath a nd into the venous system. The peel-away sheath was removed and the catheter was adhered to the patie nts arm with a stat lock. The catheter was then aspirated and flushed and a sterile bandage was place d over the access site. A fluoroscopic spot image was saved to PACS confirming the catheter tip with in the superior vena cava. IMPRESSION: SUCCESSFUL PLACEMENT OF A 5 FR DUAL LUMEN 50 CM PICC IN THE LEFT BASILIC VEIN. COMMENT: Patient medication list reviewed: Yes- Quality ID# 130:Eligible professional attests to doc umenting in the medical record they obtained, updated, or reviewed the patient's current medications. . Quality ID 145: Final reports for procedures using fluoroscopy that document radiation exposure arjun annelise, or exposure time and number of fluorographic images (if radiation exposure indices are not avail able) Quality ID #76: The patient was prepped and draped using maximum sterile barrier technique including cap, mask, sterile gown, sterile gloves, a large sterile sheet, hand hygiene, and 2% Chlorhexidine fo r cutaneous antisepsis. When ultrasound is used, sterile ultrasound techniques are followed requiring sterile gel and sterile probes. TECHNICAL DOCUMENTATION: JOB ID: [id number] [employer]- All Rights Reserved rev-08/29 Reading location - IP/workstation name: [email or web address] [id number]
--- NOTE | 2017-12-11 15:29 | RADIOLOGY REPORT (SQ) ---
EXAM DESCRIPTION: PICC INSERTION; FLUORO/CV PLACEMENT; U/S GUIDE FOR VASCULAR ACCESS COMPLETED DATE/TIME: 12/11/2017 3:13 pm REASON FOR STUDY: can not obtain iv access; IV ABX T84.54XA INFECT/INFLM REACTION DUE TO INTERNAL L EFT KNEE PRO COMPARISON: Chest film 11/12/2017 FLUOROSCOPY TIME: 1 minutes 34 seconds 4 digital C-arm images and 1 ultrasound images saved to PACS. TECHNIQUE: Fluoroscopic and ultrasound guided PICC placement. LIMITATIONS: None. PROCEDURE: After written consent and assessment were obtained, the patient was brought into the [facility] roscopy room and place supine on the table. Ultrasound evaluation of potential access sites were perf ormed. After successfully identifying a patent left basilic, the left arm was prepped and draped in a sterile fashion along with the ultrasound probe. The entry site was anesthetized with 1% lidocaine. A 21 gauge 7 cm needle was advanced through the skin and into the basilic vein under live ultrasound guidance. An ultrasound image was saved to PACS confirming access site. A .018 guide wire was then inserted through the needle and into the venous system. The needle was the removed and an 11 blade sc alpel was used to make a 1cm skin incision. A 5 fr peel-away sheath was advanced over the wire and i nto the venous system. A measurement was then made using the existing wire and live fluoroscopic guid ance. The wire was then removed and the trimmed. The PICC was advanced through the peel-away sheath a nd into the venous system. The peel-away sheath was removed and the catheter was adhered to the patie nts arm with a stat lock. The catheter was then aspirated and flushed and a sterile bandage was place d over the access site. A fluoroscopic spot image was saved to PACS confirming the catheter tip with in the superior vena cava. IMPRESSION: SUCCESSFUL PLACEMENT OF A 5 FR DUAL LUMEN 50 CM PICC IN THE LEFT BASILIC VEIN. COMMENT: Patient medication list reviewed: Yes- Quality ID# 130:Eligible professional attests to doc umenting in the medical record they obtained, updated, or reviewed the patient's current medications. . Quality ID 145: Final reports for procedures using fluoroscopy that document radiation exposure arjun annelise, or exposure time and number of fluorographic images (if radiation exposure indices are not avail able) Quality ID #76: The patient was prepped and draped using maximum sterile barrier technique including cap, mask, sterile gown, sterile gloves, a large sterile sheet, hand hygiene, and 2% Chlorhexidine fo r cutaneous antisepsis. When ultrasound is used, sterile ultrasound techniques are followed requiring sterile gel and sterile probes. TECHNICAL DOCUMENTATION: JOB ID: [id number] [employer]- All Rights Reserved rev-08/29 Reading location - IP/workstation name: [email or web address] [id number]
[2017-12-11] MEDS: FINASTERIDE 5 MG TABLET PO SCH (17:33)
[2017-12-11] MEDS: LOSARTAN POTASSIUM 50 MG TABLET PO SCH (21:42)
[2017-12-11] MEDS: NORMAL SALINE 10 ML SDV (SCHEDULED) IV SCH (21:43)
[2017-12-11] MEDS: SIMVASTATIN 10 MG TABLET PO SCH (21:44)
[2017-12-11] MEDS: FENOFIBRATE NANOCRYSTALLIZED 145 MG TABLET PO SCH (21:44)
[2017-12-11] MEDS: TAMSULOSIN HCL 0.4 MG CAP.SR.24H PO SCH (21:52)
[2017-12-12] MEDS: MORPHINE SULFATE IR 30 MG TABLET PO PRN ×2 (05:56→12:16)
[2017-12-12] MEDS: ACETAMINOPHEN 325 MG TABLET PO SCH ×2 (05:57→15:37)
[2017-12-12] MEDS: LANSOPRAZOLE 15 MG TAB.RAP.DR PO SCH (05:57)
[2017-12-12] MEDS: PREGABALIN 100 MG CAPSULE PO SCH ×2 (05:57→15:36)
--- NOTE | 2017-12-12 07:24 | PDOC DISCHARGE SUMMARY ---
General - Admit/Disc Date/PCP Admission Date/Primary Care Provider: 12/08/17 05:25 SHADE GARCÍA MD Discharge Date: 12/12/17 - Discharge Diagnosis (1) Infection of knee Is this a current diagnosis for this admission?: Yes - Additional Information Resuscitation Status: Full Code Discharge Diet: As Tolerated, Regular Discharge Activity: Balance Activity w/Rest, No Driving, No tub bath Home Medications: Gluc [place]/Chondro [place] A/Vit C/Mn [Glucosamine 1,500 Complex Cap] 1 each PO QAM Telmisartan [Micardis 80 mg Tablet] 80 mg PO QAM 03/18/15 Cyclobenzaprine HCl [Flexeril 10 mg Tablet] 10 mg PO TIDP PRN #30 tablet Finasteride 5 mg PO QPM 04/30/16 Furosemide [Lasix 40 mg Tablet] 40 mg PO ASDIR PRN 04/30/16 Levothyroxine Sodium 50 mcg PO QAM 04/30/16 Jarreau-3S/Dha/Epa/Fish Oil/D3 [Fish Gtz-Rquls-2-Vit D Softgel] 1,600 mg PO BID Tamsulosin HCl [Flomax] 0.8 mg PO QHS 04/30/16 Meloxicam [Mobic 15 mg Tablet] 15 mg PO DAILY 07/03/16 Ascorbic Acid [Vitamin C] 1,000 mg PO DAILY 09/17/16 Chondro [place] A/Vit C/Manganese [Chondroitin Sulf 400 mg Capsule] 1,200 mg PO DAILY 09/17/16 Cinnamon Bark [Cinnamon Bark 500 mg Capsule] 1 cap PO BID 09/17/16 Diphenhydramine HCl [Benadryl] 25 mg PO QHS 09/17/16 Docusate Sodium 100 mg PO BID 09/17/16 Fenofibrate Nanocrystallized [Tricor 145 mg Tablet] 145 mg PO QHS 09/17/16 Melatonin 10 mg PO QHS 09/17/16 Multivitamin [Multivitamins] 1 each PO DAILY 09/17/16 Niacin 500 mg PO BID 09/17/16 Pantoprazole Sodium [Protonix] 20 mg PO DAILY 09/17/16 Pramipexole Di-HCl [Pramipexole Dihydrochloride] 0.25 mg PO QHS PRN 06/06/17 Simvastatin [Zocor 10 mg Tablet] 10 mg PO QHS 09/17/16 Fentanyl [Duragesic 100 Mcg/Hr Transdermal Patch] 150 mcg TOP Q2DAYS 12/01/17 Hydrocodone Bit/Acetaminophen [Hydrocodon-Acetaminophen 5-325] 5 - 325 mg PO ASDIR PRN 12/01/17 Heparin Sodium,Porcine [Heparin Flush 10 Unit/ml 5 ml Disp.syrg] 30 unit IV .AFTER EACH USE PRN disp.syrin 12/12/17 Heparin Sodium,Porcine [Heparin Flush 10 Unit/ml 5 ml Disp.syrg] 30 unit IV Q12 disp.syrin 12/12/17 Vancomycin HCl [Vancocin Inj 1000 mg Vial] 1,500 mg IV Q12 vial 12/12/17 History of Present Illness History of Present Illness: JAYLON GREEN is a 72 year old male The patient is a 72-year-old white male status post left knee revision arthroplasty in the past who presents with 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 Patient is admitted now for one stage reconstruction. Hospital Course Hospital Course: Patient is admitted through the operating where he undergoes a left knee revision arthroplasty. He tolerated the procedure without complication. Is returned to floor in satisfactory condition. He has had a long and escalating history of narcotic medication. Dr. Huang of pain management is consulted and makes significant efforts and improvement in terms of his analgesic medication which is appreciated by both the patient and myself. He makes progress with physical therapy. He maintains a postoperative hematocrit of 22% in the face of a chronic anemia and a smoldering myeloma. Wound continues to weep a fair amount of serosanguineous drainage and is changed frequently. Physical Exam Vital Signs: Temp Pulse Resp BP Pulse Ox 36.8 C 71 16 123/69 96 12/11/17 19:59 12/11/17 19:59 12/11/17 19:59 12/11/17 19:59 12/11/17 19:59 Intake & Output 12/11/17 12/12/17 12/13/17 06:59 06:59 06:59 Intake Total 3178 2260 Output Total 3050 4679 Balance 128 -2375 Weight 130.2 kg 130.5 kg Physical Exam: The patient is a very large elderly white male who is also very hard of hearing. He seems to be comfortable and is sleeping soundly when I entered the room this morning. General appearance: PRESENT: no acute distress, mild distress Head exam: PRESENT: normocephalic Respiratory exam: PRESENT: unlabored Cardiovascular exam: PRESENT: RRR Pulses: PRESENT: +1 pedal pulses bilateral Vascular exam: PRESENT: normal capillary refill GI/Abdominal exam: PRESENT: soft Rectal exam: PRESENT: deferred Extremities exam: PRESENT: other - Left lower extremity dressing is changed this morning. Wound is well approximated with flaco. There is no erythema. There is some surrounding induration. There is some scant serosanguineous drainage. Distal neurovascular examination is intact. Neurological exam: PRESENT: alert, awake, oriented to person, oriented to place , oriented to time, oriented to situation. ABSENT: motor sensory deficit Psychiatric exam: PRESENT: appropriate affect, normal mood. ABSENT: homicidal ideation, suicidal ideation Skin exam: PRESENT: dry, intact, warm. ABSENT: cyanosis, rash Results Laboratory Results: 12/11/17 05:48 12/09/17 06:26 Impressions: Knee X-Ray 12/08/17 10:24 IMPRESSION: SATISFACTORY POSTOPERATIVE LEFT KNEE. Guidance Fluoroscopy 12/11/17 00:00 IMPRESSION: SUCCESSFUL PLACEMENT OF A 5 FR DUAL LUMEN 50 CM PICC IN THE LEFT BASILIC VEIN. Interventional Vascular Procedure 12/11/17 00:00 IMPRESSION: SUCCESSFUL PLACEMENT OF A 5 FR DUAL LUMEN 50 CM PICC IN THE LEFT BASILIC VEIN. PICC Line Insertion 12/11/17 08:53 IMPRESSION: SUCCESSFUL PLACEMENT OF A 5 FR DUAL LUMEN 50 CM PICC IN THE LEFT BASILIC VEIN. Status: Imported from PACS Qualifiers - * PATIENT BEING DISCHARGED WITH ANY OF THE FOLLOWING DIAGNOSIS: No VTE patient discharged on overlapping Therapy?: Yes Plan Discharge Plan: Dr. Barrett to address his postoperative analgesic regimen. Patient be discharged home with home health services and DME. Follow-up with Dr. Calhoun in the [facility] for surgery next . Resting changes to the left knee as needed by home health nursing. Time Spent: Less than 30 Minutes
[2017-12-12] MEDS: PRENATAL VITAMIN W DHA CAPSULE PO SCH (10:06)
[2017-12-12] MEDS: SENNOSIDES/DOCUSATE 8.6-50 MG 1 EACH TABLET PO SCH ×2 (10:06→12:56)
[2017-12-12] MEDS: NORMAL SALINE 10 ML SDV (SCHEDULED) IV SCH (10:07)
[2017-12-12] MEDS: LEVOTHYROXINE SODIUM 0.05 MG TABLET PO SCH (10:07)
[2017-12-12] MEDS: FUROSEMIDE 40 MG TABLET PO SCH (10:08)
[2017-12-12] MEDS: VANCOMYCIN HCL 1,500 MG in DEXTROSE 5%-WATER 250 ML IV SCH (12:21)
[2017-12-12] MEDS: FENTANYL 100 MCG/HR PATCH.TD72 TOP SCH (12:25)
[2017-12-12 13:06] LABS: VANCOMYCIN,TROUGH 19.6 ug/mL (5.0-20.0)
[2017-12-12 17:33] VITALS: BP 132/71
== END 2017-12-12 16:45 | disposition home health service (06) | DRG 467 ==
LOC: INOR 05:25 → 4S 12:14
PROVIDERS: ADMIT Orthopaedic Surgery; ATTEND Orthopaedic Surgery
PROC: 0SPD0JZ Removal of Synthetic Substitute from Left Knee Joint, Open Approach (ICD-10-PCS; 2017-12-08)
PROC: 0SRD0J9 Replacement of Left Knee Joint with Synthetic Substitute, Cemented, Open Approach (ICD-10-PCS; principal; 2017-12-08 07:30)
PROC: 02HV33Z Insertion of Infusion Device into Superior Vena Cava, Percutaneous Approach (ICD-10-PCS; 2017-12-11)
PROC: B518ZZA Fluoroscopy of Superior Vena Cava, Guidance (ICD-10-PCS; 2017-12-11)
PROC: B548ZZA Ultrasonography of Superior Vena Cava, Guidance (ICD-10-PCS; 2017-12-11)
DX: T84.54XA Infection and inflammatory reaction due to internal left knee prosthesis, initial encounter (principal); C90.00 Multiple myeloma not having achieved remission; I10 Essential (primary) hypertension; M19.90 Unspecified osteoarthritis, unspecified site; K21.9 Gastro-esophageal reflux disease without esophagitis; E78.00 Pure hypercholesterolemia, unspecified; D50.9 Iron deficiency anemia, unspecified; J44.9 Chronic obstructive pulmonary disease, unspecified; E03.9 Hypothyroidism, unspecified; D47.2 Monoclonal gammopathy; F32.9 Major depressive disorder, single episode, unspecified; F41.9 Anxiety disorder, unspecified; Z96.652 Presence of left artificial knee joint; Z86.711 Personal history of pulmonary embolism; Z79.899 Other long term (current) drug therapy
CPT/HCPCS: 01402; 36415; 36569; 76937; 77001; 80048; 80202; 84132; 85027; 87070; 87075; 87077; 87186; 87205; 88305; 94799; C1713; C1769; C1776; C9290; G8978-GP; G8979-GP; G8987-GO; G8988-GO; G8989-GO; J0131; J0171; J0690; J1642; J1741; J2250; J2270; J2370; J2405; J2704; J3010; J3370; J3490; J7050; J7060; J7120; L1830

== ENCOUNTER 2017-12-30 14:31 | Emergency (ER) | payer MEDICARE, OTHER ==
--- NOTE | 2017-12-30 15:55 | ER Document Report ---
ED Wound - General Chief Complaint: Wound Recheck Stated Complaint: POST OP STONE CHECK Time Seen by Provider: 12/30/17 15:41 Mode of Arrival: Ambulatory Information source: Patient TRAVEL OUTSIDE OF THE [place] IN LAST 30 DAYS: No - HPI Patient complains to provider of: Post surgical problem - ROUTINE CARE, HAS HAD SOME SEROSANGUINEOUS DRAINAGE. Occurred: Last week Context: Other - SURGERY 12/08. Skin Temperature: Warm Skin Color: Normal Sensations intact: Yes Associated Symptoms: None. denies: Odor - Related Data Allergies/Adverse Reactions: No Known Allergies Allergy (Verified 12/30/17 14:34) Past Medical History - General Information source: Patient - Social History Smoking Status: Former Smoker Cigarette use (# per day): No Chew tobacco use (# tins/day): No Frequency of alcohol use: Occasional Drug Abuse: None Lives with: Spouse/Significant other Family History: Hypertension - Past Medical History Cardiac Medical History: Reports: Hx Hypercholesterolemia - meds x 20.5 years, Hx Hypertension - meds x 20 years, Hx Pulmonary Embolism - 02/2015 Denies: Hx Atrial Fibrillation, Hx Congestive Heart Failure, Hx Coronary Artery Disease, Hx Heart Attack, Hx Peripheral Vascular Disease, Hx Heart Murmur Pulmonary Medical History: Reports: Hx COPD - per CXR 05/05/14 - pt reports unsure, Hx Pneumonia - 04/1993 Denies: Hx Asthma - shortness of breath, Hx Bronchitis, Hx Respiratory Failure, Hx Sleep Apnea, Hx Tuberculosis Neurological Medical History: Denies: Hx Cerebrovascular Accident, Hx Seizures Endocrine Medical History: Reports: Hx Hypothyroidism - meds x1 year. Denies: Hx Graves' Disease, Hx Hyperthyroidism Renal/ Medical History: Reports: Hx Benign Prostatic Hyperplasia - nocturia x 2/night with urgency. Denies: Hx End Stage Renal Disease, Hx Kidney Stones, Hx Peritoneal Dialysis Malignancy Medical History: Denies Hx Leukemia, Denies Hx Lung Cancer GI Medical History: Reports: Hx Gastroesophageal Reflux Disease - meds x 10.5 years. Denies: Hx Crohn's Disease, Hx Hiatal Hernia, Hx Irritable Bowel, Hx Liver Failure, Hx Pancreatitis, Hx Ulcer Musculoskeletal Medical History: Reports Hx Arthritis, Denies Hx Fibromyalgia, Denies Hx Multiple Sclerosis, Denies Hx Muscular Dystrophy Skin Medical History: Reports Hx Cellulitis Psychiatric Medical History: Denies: Hx Dementia Traumatic Medical History: Denies: Hx Fractures Infectious Medical History: Denies: Hx HIV Past Surgical History: Reports: Hx Nose Surgery, Hx Orthopedic Surgery - bilateral knee replacement, right rotator cuff. Denies: Hx Appendectomy, Hx Bowel Surgery, Hx Cholecystectomy, Hx Colostomy, Hx Coronary Artery Bypass Graft , Hx Gastric Bypass Surgery, Hx Herniorrhaphy, Hx Pacemaker, Hx Tonsillectomy - Immunizations Immunizations up to date: No Hx Diphtheria, Pertussis, Tetanus Vaccination: - Unsure Hx Pneumococcal Vaccination: 01/12/14 Review of Systems - Review of Systems Constitutional: No symptoms reported. denies: Chills, Fever EENT: No symptoms reported Cardiovascular: No symptoms reported Respiratory: No symptoms reported Gastrointestinal: No symptoms reported Musculoskeletal: See HPI Skin: See HPI Neurological/Psychological: No symptoms reported Physical Exam - Vital signs Vitals: Temp Pulse Resp BP Pulse Ox 97.9 F 79 20 142/78 H 98 12/30/17 15:03 12/30/17 15:03 12/30/17 15:03 12/30/17 15:03 12/30/17 15:03 Interpretation: Hypertensive. No: Tachycardic, Tachypneic, Febrile - General General appearance: Appears well, Alert In distress: None - HEENT Head: Normocephalic Eyes: Normal Conjunctiva: Normal Ears: Normal Nasal: Normal Mouth/Lips: Normal Mucous membranes: Normal - Respiratory Respiratory status: No respiratory distress - Cardiovascular Rhythm: Regular - Abdominal Inspection: Normal - Extremities General upper extremity: Other - PICC LINE LEFT A.C., LOOKS GOOD. No: Normal inspection General lower extremity: No: Normal inspection - BOTH KNEES POST-SURGICAL, LEFT MORE RECENT Knee: Other - INCISION APPEARS TO BE HEALING WELL. SMALL AMT. DRAINAGE FROM INFERIOR PORTION. NO UNUSUAL MASS, FLUCTUANCE, OR TENDERNESS.. No: Normal - Neurological Neuro grossly intact: Yes Cognition: Normal Orientation: AAOx4 - Psychological Associated symptoms: Normal affect, Normal mood - Skin Skin Temperature: Warm Skin Moisture: Dry Skin Color: Normal Skin Turgor: Elastic Course - Vital Signs Vital signs: Temp Pulse Resp BP Pulse Ox 97.9 F 79 20 142/78 H 98 12/30/17 15:03 12/30/17 15:03 12/30/17 15:03 12/30/17 15:03 12/30/17 15:03 Discharge - Discharge Clinical Impression: Encounter for change or removal of surgical wound dressing Condition: Stable Disposition: HOME, SELF-CARE Additional Instructions: CONTINUE USUAL CARE AND MEDS. FOLLOW UP WITH VISITING NURSE TOMORROW (FRIDAY) A.M. FOLLOW UP WITH DR. HOGAN SCHEDULED. Referrals: SUZETTE HOGAN MD [Primary Care Provider] - Follow up as needed
[2017-12-30 16:16] VITALS: BP 141/77
== END 2017-12-30 16:13 | disposition home or self-care (01) ==
LOC: ER 14:31
DX: Z48.01 Encounter for change or removal of surgical wound dressing (principal); I10 Essential (primary) hypertension; J44.9 Chronic obstructive pulmonary disease, unspecified; Z87.891 Personal history of nicotine dependence
CPT/HCPCS: 99282

== ENCOUNTER 2018-01-05 09:21 | Inpatient (IN) | payer MEDICARE, OTHER ==
[2018-01-05] MEDS ORDERED: VANCOMYCIN HCL INJ 1000 MG VIAL IV ONE (09:42)
--- NOTE | 2018-01-05 09:45 | ER Document Report ---
ED Medical Screen (RME) - General Chief Complaint: Post Surgical Bleeding Stated Complaint: WOUND CARE Time Seen by Provider: 01/05/18 09:41 TRAVEL OUTSIDE OF THE [place] IN LAST 30 DAYS: No - HPI Notes: 01/05/18 09:45 Currently on vancomycin for knee replacement infection states worsening - Related Data Allergies/Adverse Reactions: No Known Allergies Allergy (Verified 01/05/18 09:25) Past Medical History - Past Medical History Cardiac Medical History: Reports: Hx Hypercholesterolemia - meds x 20.5 years, Hx Hypertension - meds x 20 years, Hx Pulmonary Embolism - 02/2015 Denies: Hx Atrial Fibrillation, Hx Congestive Heart Failure, Hx Coronary Artery Disease, Hx Heart Attack, Hx Peripheral Vascular Disease, Hx Heart Murmur Pulmonary Medical History: Reports: Hx COPD - per CXR 05/05/14 - pt reports unsure, Hx Pneumonia - 04/1993 Denies: Hx Asthma - shortness of breath, Hx Bronchitis, Hx Respiratory Failure, Hx Sleep Apnea, Hx Tuberculosis Neurological Medical History: Denies: Hx Cerebrovascular Accident, Hx Seizures Endocrine Medical History: Reports: Hx Hypothyroidism - meds x1 year. Denies: Hx Graves' Disease, Hx Hyperthyroidism Renal/ Medical History: Reports: Hx Benign Prostatic Hyperplasia - nocturia x 2/night with urgency. Denies: Hx End Stage Renal Disease, Hx Kidney Stones, Hx Peritoneal Dialysis Malignancy Medical History: Denies Hx Leukemia, Denies Hx Lung Cancer GI Medical History: Reports: Hx Gastroesophageal Reflux Disease - meds x 10.5 years. Denies: Hx Crohn's Disease, Hx Hiatal Hernia, Hx Irritable Bowel, Hx Liver Failure, Hx Pancreatitis, Hx Ulcer Musculoskeltal Medical History: Reports Hx Arthritis, Denies Hx Fibromyalgia, Denies Hx Multiple Sclerosis, Denies Hx Muscular Dystrophy Skin Medical History: Reports Hx Cellulitis Psychiatric Medical History: Denies: Hx Dementia Traumatic Medical History: Denies: Hx Fractures Infectious Medical History: Denies: Hx HIV Past Surgical History: Reports: Hx Nose Surgery, Hx Orthopedic Surgery - bilateral knee replacement, right rotator cuff. Denies: Hx Appendectomy, Hx Bowel Surgery, Hx Cholecystectomy, Hx Colostomy, Hx Coronary Artery Bypass Graft , Hx Gastric Bypass Surgery, Hx Herniorrhaphy, Hx Pacemaker, Hx Tonsillectomy - Immunizations Immunizations up to date: No Hx Diphtheria, Pertussis, Tetanus Vaccination: - Unsure History of Influenza Vaccine for 01/2017 - 06/2017 Season: Refused Influenza Administration Date for 01/2017 Season: 01/12/17 Review of Systems - Review of Systems Musculoskeletal: Other - knee wound infection Physical Exam - Vital signs Vitals: Temp Pulse Resp BP Pulse Ox 98.1 F 76 14 137/50 H 98 01/05/18 09:36 01/05/18 09:36 01/05/18 09:36 01/05/18 09:36 01/05/18 09:36 - Respiratory Respiratory status: No respiratory distress Chest status: Nontender Breath sounds: Normal Chest palpation: Normal - Cardiovascular Rhythm: Regular Heart sounds: Normal auscultation Course - Vital Signs Vital signs: Temp Pulse Resp BP Pulse Ox 98.1 F 76 14 137/50 H 98 01/05/18 09:36 01/05/18 09:36 01/05/18 09:36 01/05/18 09:36 01/05/18 09:36 Doctor's Discharge - Discharge Referrals: SUZETTE HOGAN MD [Primary Care Provider] - Follow up as needed
--- NOTE | 2018-01-05 10:10 | ER Document Report ---
ED General - General Chief Complaint: Post Surgical Bleeding Stated Complaint: WOUND CARE Time Seen by Provider: 01/05/18 09:41 TRAVEL OUTSIDE OF THE [place] IN LAST 30 DAYS: No - HPI Patient complains to provider of: Postop wound infection Notes: Patient coming in for evaluation of postop wound infection. Patient had a total knee replacement performed by Dr. Hogan at the end of November develop an infection has been on vancomycin through a PICC line however states last night while walking flaco up and up and with copious amounts of pus and drainage down his leg patient came to ER today for further evaluation denies any fevers chills nausea vomiting resting comfortably upon my evaluation - Related Data Allergies/Adverse Reactions: No Known Allergies Allergy (Verified 01/05/18 09:25) Past Medical History - Social History Smoking Status: Former Smoker Frequency of alcohol use: quite 27 years ago Drug Abuse: None Family History: Hypertension Patient has suicidal ideation: No Patient has homicidal ideation: No - Past Medical History Cardiac Medical History: Reports: Hx Hypercholesterolemia - meds x 20.5 years, Hx Hypertension - meds x 20 years, Hx Pulmonary Embolism - 02/2015 Denies: Hx Atrial Fibrillation, Hx Congestive Heart Failure, Hx Coronary Artery Disease, Hx Heart Attack, Hx Peripheral Vascular Disease, Hx Heart Murmur Pulmonary Medical History: Reports: Hx COPD - per CXR 05/05/14 - pt reports unsure, Hx Pneumonia - 04/1993 Denies: Hx Asthma - shortness of breath, Hx Bronchitis, Hx Respiratory Failure, Hx Sleep Apnea, Hx Tuberculosis Neurological Medical History: Denies: Hx Cerebrovascular Accident, Hx Seizures Endocrine Medical History: Reports: Hx Hypothyroidism - meds x1 year. Denies: Hx Graves' Disease, Hx Hyperthyroidism Renal/ Medical History: Reports: Hx Benign Prostatic Hyperplasia - nocturia x 2/night with urgency. Denies: Hx End Stage Renal Disease, Hx Kidney Stones, Hx Peritoneal Dialysis Malignancy Medical History: Denies Hx Leukemia, Denies Hx Lung Cancer GI Medical History: Reports: Hx Gastroesophageal Reflux Disease - meds x 10.5 years. Denies: Hx Crohn's Disease, Hx Hiatal Hernia, Hx Irritable Bowel, Hx Liver Failure, Hx Pancreatitis, Hx Ulcer Musculoskeletal Medical History: Reports Hx Arthritis, Denies Hx Fibromyalgia, Denies Hx Multiple Sclerosis, Denies Hx Muscular Dystrophy Skin Medical History: Reports Hx Cellulitis Psychiatric Medical History: Denies: Hx Dementia Traumatic Medical History: Denies: Hx Fractures Infectious Medical History: Denies: Hx HIV Past Surgical History: Reports: Hx Nose Surgery, Hx Orthopedic Surgery - bilateral knee replacement, right rotator cuff. Denies: Hx Appendectomy, Hx Bowel Surgery, Hx Cholecystectomy, Hx Colostomy, Hx Coronary Artery Bypass Graft , Hx Gastric Bypass Surgery, Hx Herniorrhaphy, Hx Pacemaker, Hx Tonsillectomy - Immunizations Immunizations up to date: No Hx Diphtheria, Pertussis, Tetanus Vaccination: - Unsure Hx Pneumococcal Vaccination: 01/12/14 Review of Systems - Review of Systems Constitutional: No symptoms reported EENT: No symptoms reported Cardiovascular: No symptoms reported Respiratory: No symptoms reported Gastrointestinal: No symptoms reported Genitourinary: No symptoms reported Male Genitourinary: No symptoms reported Musculoskeletal: Other - Postop wound infection Skin: No symptoms reported Hematologic/Lymphatic: No symptoms reported Neurological/Psychological: No symptoms reported -: Yes All other systems reviewed and negative Physical Exam - Vital signs Vitals: Temp Pulse Resp BP Pulse Ox 98.1 F 76 14 137/50 H 98 01/05/18 09:36 01/05/18 09:36 01/05/18 09:36 01/05/18 09:36 01/05/18 09:36 Interpretation: Normal - General General appearance: Appears well, Alert - HEENT Head: Normocephalic, Atraumatic Eyes: Normal Pupils: PERRL - Respiratory Respiratory status: No respiratory distress Chest status: Nontender Breath sounds: Normal Chest palpation: Normal - Cardiovascular Rhythm: Regular Heart sounds: Normal auscultation Murmur: No - Abdominal Inspection: Normal Distension: No distension Bowel sounds: Normal Tenderness: Nontender Organomegaly: No organomegaly - Back Back: Normal, Nontender - Extremities General upper extremity: Normal inspection, Nontender, Normal color, Normal ROM , Normal temperature General lower extremity: Nontender, Normal color, Normal ROM, Normal temperature. No: Normal inspection - Patient with left knee postsurgical flaco and placed erythema along the wound just below the area of the patella there is opening of the wound slight dehiscence with purulent drainage - Neurological Neuro grossly intact: Yes Cognition: Normal Orientation: AAOx4 [place] Coma Scale Eye Opening: Spontaneous [place] Coma Scale Verbal: Oriented [place] Coma Scale Motor: Obeys Commands [place] Coma Scale Total: 15 Speech: Normal Motor strength normal: LUE, RUE, LLE, RLE Sensory: Normal - Psychological Associated symptoms: Normal affect, Normal mood - Skin Skin Temperature: Warm Skin Moisture: Dry Skin Color: Normal Course - Re-evaluation Re-evalutation: 01/05/18 10:[address] Hogan will admit to his service. - Vital Signs Vital signs: Temp Pulse Resp BP Pulse Ox 98.1 F 76 14 137/50 H 98 01/05/18 09:36 01/05/18 09:36 01/05/18 09:36 01/05/18 09:36 01/05/18 09:36 Discharge - Discharge Clinical Impression: Infected prosthetic knee joint Qualifiers: Encounter type: initial encounter Qualified Code(s): T84.59XA - Infection and inflammatory reaction due to other internal joint prosthesis, initial encounter Condition: Good Disposition: ADMITTED INPATIENT Admitting Provider: Lj Unit Admitted: Surgical Floor Referrals: SUZETTE HOGAN MD [Primary Care Provider] - Follow up as needed
[2018-01-05 11:13] LABS: ABSOLUTE BASOPHILS # (AUTO) 0.1 10^3/uL (0.0-0.2); ABSOLUTE EOSINOPHILS # (AUTO) 0.3 10^3/uL (0.0-0.6); ABSOLUTE NEUT (AUTO) 11.8 10^3/uL (1.7-8.2); BASOPHILS % (AUTO) 0.5 % (0-2); EOSINOPHILS % (AUTO) 1.9 % (0-6); HEMATOCRIT 24.6 % (37.9-51.0); MEAN CORPUSCULAR HEMOGLOBIN 26.9 pg (27.0-33.4); MEAN CORPUSCULAR HGB CONC 32.7 g/dL (32.0-36.0); MEAN CORPUSCULAR VOLUME 82 fl (80-97); MONOCYTES % (AUTO) 6.8 % (3-13); PLATELET COUNT 376 10^3/uL (150-450); RED BLOOD COUNT 2.99 10^6/uL (4.35-5.55); RED CELL DISTRIBUTION WIDTH 17.6 % (11.5-14.0); SEGMENTED NEUTROPHILS % (AUTO) 83.8 % (42-78); TOTAL CELLS COUNTED % (AUTO) 100 %; WHITE BLOOD COUNT 14.1 10^3/uL (4.0-10.5)
[2018-01-05 11:44] LABS: ANION GAP 6 (5-19); BLOOD UREA NITROGEN 21 mg/dL (7-20); CALCIUM 9.3 mg/dL (8.4-10.2); CARBON DIOXIDE 26 mmol/L (22-30); CHLORIDE 104 mmol/L (98-107); GLUCOSE 97 mg/dL (75-110); POTASSIUM 4.2 mmol/L (3.6-5.0); SODIUM 135.5 mmol/L (137-145)
[2018-01-05 11:51] LABS: VANCOMYCIN,TROUGH 15.3 ug/mL (5.0-20.0)
[2018-01-05] MEDS: TAMSULOSIN HCL 0.4 MG CAP.SR.24H PO SCH (22:40)
[2018-01-05] MEDS: SIMVASTATIN 10 MG TABLET PO SCH (22:40)
[2018-01-05] MEDS: MORPHINE SULFATE IR 30 MG TABLET PO PRN (22:41)
[2018-01-05] MEDS: PRAMIPEXOLE DI-HCL 0.25 MG TABLET PO SCH (22:41)
[2018-01-06] MEDS ORDERED: OXYCODONE HCL IR 5 MG TABLET PO SCH
[2018-01-06] MEDS: LEVOTHYROXINE SODIUM 0.05 MG TABLET PO SCH (05:33)
[2018-01-06] MEDS: LANSOPRAZOLE 30 MG TAB.RAP.DR PO SCH (05:34)
[2018-01-06] MEDS: MORPHINE SULFATE IR 30 MG TABLET PO PRN ×3 (05:34→23:29)
--- NOTE | 2018-01-06 06:41 | PDOC H&P ---
History of Present Illness Admission Date/PCP: 01/05/18 10:40 SHADE GARCÍA MD History of Present Illness: JAYLON GREEN is a 72 year old male 72-year-old white male status post one stage reconstruction for a left periprosthetic knee infection now presents with dehiscence of the lower section of the wound. Past Medical History Cardiac Medical History: Reports: Hyperlipidema - meds x 20.5 years, Hypertension - meds x 20 years, Pulmonary Embolism - 02/2015 Denies: Atrial Fibrillation, Congestive Heart Failure, Coronary Artery Disease, Myocardial Infarction, Peripheral Vascular Disease, Heart Murmur Pulmonary Medical History: Reports: Chronic Obstructive Pulmonary Disease (COPD ) - per CXR 05/05/14 - pt reports unsure, Pneumonia - 04/1993 Denies: Asthma - shortness of breath, Bronchitis, Respiratory Failure, Sleep Apnea, Tuberculosis Neurological Medical History: Denies: Seizures Endocrine Medical History: Reports: Hypothyroidism - meds x1 year Denies: Hyperthyroidism Renal/ Medical History: Denies: End Stage Renal Disease Malignancy Medical History: Denies: Leukemia, Lung Cancer GI Medical History: Reports: Gastroesophageal Reflux Disease - meds x 10.5 years Denies: Crohn's Disease, Hiatal Hernia Musculoskeltal Medical History: Reports: Arthritis Denies: Fibromyalgia Psychiatric Medical History: Denies: Dementia Hematology: Reports: Anemia - hx blood transfusions Denies: Hemophilia, Sickle Cell Disease Infectious Medical History: Denies: HIV Past Surgical History Past Surgical History: Reports: Orthopedic Surgery - bilateral knee replacement , right rotator cuff Denies: Appendectomy, Cholecystectomy, Colostomy, Coronary Artery Bypass Graft, Gastric Bypass Surgery, Herniorrhaphy, Pacemaker, Tonsillectomy Social History Information Source: Patient, DrAilyn Office, [facility] Records Smoking Status: Former Smoker Frequency of Alcohol Use: None Hx Recreational Drug Use: No Drugs: None Hx Prescription Drug Abuse: No Family History Family History: Hypertension Parental Family History Reviewed: No Children Family History Reviewed: No Sibling(s) Family History Reviewed.: No Medication/Allergy Home Medications: Fenofibrate Nanocrystallized [Fenofibrate] 145 mg PO DAILY 01/05/18 Fentanyl [Duragesic 100 Mcg/Hr Transdermal Patch] 1 patch TD Q2DAYS 01/05/18 Fentanyl [Duragesic 50 Mcg/Hr Transdermal Patch] 1 patch TD Q2DAYS 01/05/18 Finasteride [Proscar 5 mg Tablet] 5 mg PO BID 01/05/18 Levothyroxine Sodium [Synthroid] 50 mcg PO QAM 01/05/18 Meloxicam [Mobic] 15 mg PO DAILY 01/05/18 Morphine Sulfate [Morphine Ir 30 mg Tablet] 30 mg PO QIDP PRN 01/05/18 Multivitamin [Multiple Vitamins] 1 tab PO DAILY 01/05/18 Oxycodone HCl [Oxy-Ir 5 mg Tablet] 15 mg PO Q6 01/05/18 Pantoprazole Sodium [Protonix] 40 mg PO DAILY 01/05/18 Pramipexole Di-HCl [Mirapex 0.25 mg Tablet] 0.25 mg PO QHS 01/05/18 Simvastatin [Zocor 10 mg Tablet] 10 mg PO QHS 01/05/18 Tamsulosin HCl [Flomax 0.4 mg Cap.sr] 0.8 mg PO QHS 01/05/18 Telmisartan [Micardis 80 mg Tablet] 80 mg PO QAM 01/05/18 Allergies/Adverse Reactions: No Known Allergies Allergy (Verified 01/05/18 09:25) Review of Systems All systems: as per PMH Physical Exam Vital Signs: Temp Pulse Resp BP Pulse Ox 36.6 C 69 14 134/73 H 98 01/06/18 00:19 01/06/18 00:19 01/06/18 00:19 01/06/18 00:19 01/06/18 00:19 Intake & Output 01/04/18 01/05/18 01/06/18 06:59 06:59 06:59 Weight 130 kg Physical Exam: Large middle-aged white male notably hard of hearing lying in a hospital bed complaining of pain General appearance: PRESENT: no acute distress Head exam: PRESENT: normocephalic Respiratory exam: PRESENT: unlabored Cardiovascular exam: PRESENT: RRR Pulses: PRESENT: +1 pedal pulses bilateral GI/Abdominal exam: PRESENT: soft Rectal exam: PRESENT: deferred Extremities exam: PRESENT: other - Left lower extremity wound examined. There is an area of dehiscence measuring approximately 5 cm over the distal third of the wound with serosanguineous drainage. Results Status: Imported from PACS Assessment & Plan - Diagnosis (1) Infected prosthetic knee joint Qualifiers: Encounter type: initial encounter Qualified Code(s): T84.59XA - Infection and inflammatory reaction due to other internal joint prosthesis, initial encounter; Z96.659 - Presence of unspecified artificial knee joint; Z96.659 - Presence of unspecified artificial knee joint Plan: Plan for I&D and repeat closure of the left knee wound tomorrow under choice anesthesia - Time Time Spent: 50 to 70 Minutes Anticipated discharge: Home with Homehealth Within: Other
[2018-01-06] MEDS ORDERED: (PENDING PHARMACY ID) (Telmisartan [Micardis 80 Mg Tablet] 80 MG) PO SCH (08:00)
[2018-01-06] MEDS: MELOXICAM 15 MG TABLET PO SCH (09:26)
[2018-01-06] MEDS: MULTIVITAMIN TABLET PO SCH (09:27)
[2018-01-06] MEDS: FINASTERIDE 5 MG TABLET PO SCH ×2 (09:27→17:21)
[2018-01-06] MEDS: FENTANYL 100 MCG/HR PATCH.TD72 TD SCH (09:28)
[2018-01-06] MEDS: VANCOMYCIN HCL 2,000 MG in DEXTROSE 5%-WATER 500 ML IV SCH ×2 (09:28→22:07)
[2018-01-06] MEDS: FENTANYL 50 MCG/HR PATCH.TD72 TD SCH (09:29)
[2018-01-06] MEDS ORDERED: NORMAL SALINE 10 ML SDV (AFTER EACH USE) IV PRN (12:32)
[2018-01-06 12:57] LABS: ABSOLUTE EOSINOPHILS # (AUTO) 0.6 10^3/uL (0.0-0.6); ABSOLUTE LYMPHOCYTES (AUTO) 1.3 10^3/uL (0.5-4.7); ABSOLUTE MONOCYTES (AUTO) 0.7 10^3/uL (0.1-1.4); BASOPHILS % (AUTO) 0.3 % (0-2); EOSINOPHILS % (AUTO) 6.4 % (0-6); HEMOGLOBIN 8.3 g/dL (13.5-17.0); LYMPHOCYTES % (AUTO) 13.8 % (13-45); MEAN CORPUSCULAR HEMOGLOBIN 27.5 pg (27.0-33.4); MEAN CORPUSCULAR HGB CONC 33.2 g/dL (32.0-36.0); MEAN CORPUSCULAR VOLUME 83 fl (80-97); MONOCYTES % (AUTO) 7.2 % (3-13); PLATELET COUNT 361 10^3/uL (150-450); RED BLOOD COUNT 3.02 10^6/uL (4.35-5.55); RED CELL DISTRIBUTION WIDTH 17.8 % (11.5-14.0); SEGMENTED NEUTROPHILS % (AUTO) 72.3 % (42-78); TOTAL CELLS COUNTED % (AUTO) 100 %; WHITE BLOOD COUNT 9.7 10^3/uL (4.0-10.5)
[2018-01-06 13:06] LABS: INTERNATIONAL RATION (INR) 1.25; PROTHROMBIN TIME 16.3 SEC (11.4-15.4)
[2018-01-06 13:07] LABS: PARTIAL THROMBOPLASTIN TIME 54.1 SEC (23.5-35.8)
[2018-01-06 13:20] LABS: ANION GAP 6 (5-19); BLOOD UREA NITROGEN 15 mg/dL (7-20); CALCIUM 9.9 mg/dL (8.4-10.2); CARBON DIOXIDE 25 mmol/L (22-30); CHLORIDE 106 mmol/L (98-107); GLUCOSE 108 mg/dL (75-110); POTASSIUM 4.4 mmol/L (3.6-5.0); SODIUM 137.3 mmol/L (137-145)
[2018-01-06 13:33] LABS: C-REACTIVE PROTEIN 217.1 mg/L (<10.0)
[2018-01-06 13:36] LABS: ERYTHROCYTE SEDIMENTATION RATE 77 mm/hr (0-20)
[2018-01-06] MEDS ORDERED: HYDRALAZINE HCL INJ/PF 20 MG/1 ML SDV IV PRN (14:33)
--- NOTE | 2018-01-06 14:39 | PDOC CONSULTATION ---
Consultation Consult Date: 01/06/18 Attending physician:: SUZETTE HOGAN History of Present Illness Admission Date/PCP: 01/05/18 10:40 SHADE GARCÍA MD History of Present Illness: Per H&P by Dr. Hogan: JAYLON GREEN is a 72 year old male status post one stage reconstruction for a left periprosthetic knee infection now presents with dehiscence of the lower section of the wound. Past Medical History Cardiac Medical History: Reports: Hyperlipidema, Hypertension, Pulmonary Embolism - 2014 Denies: Congestive Heart Failure, Myocardial Infarction Pulmonary Medical History: Reports: Pneumonia Denies: Chronic Obstructive Pulmonary Disease (COPD) EENT Medical History: Reports: Ears - [place] Neurological Medical History: Denies: Hemorrhagic CVA, Ischemic CVA, Seizures Endocrine Medical History: Reports: Hypothyroidism Denies: Diabetes Mellitus Type 2 Renal/ Medical History: Denies: Chronic Kidney Disease Malignancy Medical History: Reports: None GI Medical History: Reports: Gastroesophageal Reflux Disease Musculoskeltal Medical History: Reports: Arthritis, Other - Chronic pain Psychiatric Medical History: Reports: None Hematology: Reports: Anemia Infectious Medical History: Reports: None Past Surgical History Past Surgical History: Reports: Orthopedic Surgery - bilateral knee replacement , right rotator cuff, Other - Nasal/Sinus x2 Social History Information Source: Patient Lives with: Spouse/Significant other Smoking Status: Former Smoker Number of Years Smokin Last Time Smoked: 1977 Frequency of Alcohol Use: None Hx Recreational Drug Use: No Drugs: None Hx Prescription Drug Abuse: No - Advance Directive Resuscitation Status: Full Code Family History Family History: Reviewed & Not Pertinent, Hypertension Parental Family History Reviewed: Yes Children Family History Reviewed: Yes Sibling(s) Family History Reviewed.: Yes Medication/Allergy Home Medications: Fenofibrate Nanocrystallized [Fenofibrate] 145 mg PO DAILY 01/05/18 Fentanyl [Duragesic 100 Mcg/Hr Transdermal Patch] 1 patch TD Q2DAYS 01/05/18 Fentanyl [Duragesic 50 Mcg/Hr Transdermal Patch] 1 patch TD Q2DAYS 01/05/18 Finasteride [Proscar 5 mg Tablet] 5 mg PO BID 01/05/18 Levothyroxine Sodium [Synthroid] 50 mcg PO QAM 01/05/18 Meloxicam [Mobic] 15 mg PO DAILY 01/05/18 Morphine Sulfate [Morphine Ir 30 mg Tablet] 30 mg PO QIDP PRN 01/05/18 Multivitamin [Multiple Vitamins] 1 tab PO DAILY 01/05/18 Oxycodone HCl [Oxy-Ir 5 mg Tablet] 15 mg PO Q6 01/05/18 Pantoprazole Sodium [Protonix] 40 mg PO DAILY 01/05/18 Pramipexole Di-HCl [Mirapex 0.25 mg Tablet] 0.25 mg PO QHS 01/05/18 Simvastatin [Zocor 10 mg Tablet] 10 mg PO QHS 01/05/18 Tamsulosin HCl [Flomax 0.4 mg Cap.sr] 0.8 mg PO QHS 01/05/18 Telmisartan [Micardis 80 mg Tablet] 80 mg PO QAM 01/05/18 Allergies/Adverse Reactions: No Known Allergies Allergy (Verified 01/05/18 09:25) Review of Systems Constitutional: ABSENT: chills, fever(s), headache(s), weight gain, weight loss Eyes: ABSENT: visual disturbances Ears: ABSENT: hearing changes Cardiovascular: ABSENT: chest pain, dyspnea on exertion, edema, orthropnea, palpitations Respiratory: ABSENT: cough, hemoptysis Gastrointestinal: ABSENT: abdominal pain, constipation, diarrhea, hematemesis, hematochezia, nausea, vomiting Genitourinary: ABSENT: dysuria, hematuria Musculoskeletal: PRESENT: as per HPI. ABSENT: joint swelling Integumentary: ABSENT: rash, wounds Neurological: PRESENT: abnormal gait - 2/2 chronic knee pain and recent surgery. ABSENT: abnormal speech, confusion, dizziness, focal weakness, syncope Psychiatric: ABSENT: anxiety, depression, homidical ideation, suicidal ideation Endocrine: ABSENT: cold intolerance, heat intolerance, polydipsia, polyuria Hematologic/Lymphatic: ABSENT: easy bleeding, easy bruising Physical Exam Vital Signs: Temp Pulse Resp BP Pulse Ox 98.6 F 71 16 132/67 H 99 01/06/18 11:40 01/06/18 11:40 01/06/18 11:40 01/06/18 11:40 01/06/18 11:40 Intake & Output 01/05/18 01/06/18 01/07/18 06:59 06:59 06:59 Intake Total 500 Output Total 1025 Balance -1025 500 Weight 130 kg General appearance: PRESENT: no acute distress, well-developed, well-nourished Head exam: PRESENT: atraumatic, normocephalic Eye exam: PRESENT: conjunctiva pink, EOMI, PERRLA. ABSENT: scleral icterus Ear exam: PRESENT: normal external ear exam Mouth exam: PRESENT: moist, tongue midline Neck exam: ABSENT: carotid bruit, JVD, lymphadenopathy, thyromegaly Respiratory exam: PRESENT: clear to auscultation mark. ABSENT: rales, rhonchi, wheezes Cardiovascular exam: PRESENT: RRR. ABSENT: diastolic murmur, rubs, systolic murmur Pulses: PRESENT: normal dorsalis pedis pul Vascular exam: PRESENT: normal capillary refill GI/Abdominal exam: PRESENT: normal bowel sounds, soft. ABSENT: distended, guarding, mass, organolmegaly, rebound, tenderness Rectal exam: PRESENT: deferred Extremities exam: PRESENT: joint swelling - Lt knee, tenderness - Lt knee, other - LLE surgical wound dehiscence: bandage in place; wound was not directly visualized.. ABSENT: calf tenderness, clubbing, pedal edema Neurological exam: PRESENT: alert, awake, oriented to person, oriented to place , oriented to time, oriented to situation, CN II-XII grossly intact. ABSENT: motor sensory deficit Psychiatric exam: PRESENT: appropriate affect, normal mood. ABSENT: homicidal ideation, suicidal ideation Skin exam: PRESENT: dry, intact, warm. ABSENT: cyanosis, rash Results Laboratory Results: 01/06/18 12:35 01/06/18 12:35 01/06/18 01/06/18 12:35 12:35 WBC 9.7 RBC 3.02 L Hgb 8.3 L Hct 25.0 L MCV 83 MCH 27.5 MCHC 33.2 RDW 17.8 H Plt Count 361 Seg Neutrophils % 72.3 Lymphocytes % 13.8 Monocytes % 7.2 Eosinophils % 6.4 H Basophils % 0.3 Absolute Neutrophils 7.0 Absolute Lymphocytes 1.3 Absolute Monocytes 0.7 Absolute Eosinophils 0.6 Absolute Basophils 0.0 Sodium 137.3 Potassium 4.4 Chloride 106 Carbon Dioxide 25 Anion Gap 6 BUN 15 Creatinine 0.89 Est GFR ( Amer) > 60 Est GFR (Non-Af Amer) > 60 Glucose 108 Calcium 9.9 C-Reactive Protein 217.1 H Assessment & Plan - Diagnosis (1) Infected prosthetic knee joint Qualifiers: Encounter type: initial encounter Qualified Code(s): T84.59XA - Infection and inflammatory reaction due to other internal joint prosthesis, initial encounter; Z96.659 - Presence of unspecified artificial knee joint; Z96.659 - Presence of unspecified artificial knee joint Is this a current diagnosis for this admission?: Yes Plan: Attending is Dr. Hogan. Primary plan per Orthopedic's expertise; plan surgical incision and drainage tomorrow. Antibiotics and wound care per orthopedics. [facility] has been consulted; pain medications per pain management and orthopedic teams. (2) Hypothyroid Is this a current diagnosis for this admission?: Yes Plan: Thyroid panel (09/2017) is appropriate. Continue home dose levothyroxine. (3) GERD (gastroesophageal reflux disease) Is this a current diagnosis for this admission?: Yes Plan: Continue home dose Protonix. (4) Hyperlipidemia Is this a current diagnosis for this admission?: Yes Plan: Lipid panel (09/2017) is appropriate. Continue home dose simvastatin and fenofibrate. (5) Hypertension Is this a current diagnosis for this admission?: Yes Plan: Normotensive at present. Continue the patient's home medication regiment: Myocarditis. IV hydralazine as needed for blood pressure control. (6) BPH (benign prostatic hyperplasia) Is this a current diagnosis for this admission?: Yes Plan: Continue tamsulosin and Proscar. (7) Restless leg syndrome Is this a current diagnosis for this admission?: Yes Plan: Continue Mirapex. (8) Chronic pain Qualifiers: Chronic pain type: other chronic pain Qualified Code(s): G89.29 - Other chronic pain Is this a current diagnosis for this admission?: Yes Plan: [facility] has been consulted; plan per their expertise. Home medications include Duragesic 150 mcg, meloxicam 15 mg daily, and morphine IR 30 mg 4 times daily as needed. (9) Anemia Qualifiers: Anemia type: iron deficiency Is this a current diagnosis for this admission?: Yes Plan: Chronic Iron deficiency anemia; anemia panel (05/2016) reveals low iron. Hemoglobin is currently stable at 8.3, which is actually improved from 7.4 at time of discharge in November 2017. It appears that his baseline is around 9.0. [address] on iron supplementation and obtain registered dietitian consultation. - Time Time Spent: 50 to 70 Minutes Medications reviewed and adjusted accordingly: Yes Anticipated discharge: Home Within: Other - Per Orthopedic's discretion. - Plan Summary Plan Summary: Consultation was received for medication management; current lab work, vital signs, HPI, and home medications were reviewed. He appears to be adequately managed on his home medication regimen which has been continued unchanged with the exception of the addition of p.o. iron supplementation. [facility] has been consulted for management of his acute and chronic pain. Will sign off, please re-consult as needed.
[2018-01-06] MEDS: LOSARTAN POTASSIUM 50 MG TABLET PO SCH (15:49)
[2018-01-06] MEDS: PRAMIPEXOLE DI-HCL 0.25 MG TABLET PO SCH (22:06)
[2018-01-06] MEDS: SIMVASTATIN 10 MG TABLET PO SCH (22:06)
[2018-01-06] MEDS: NORMAL SALINE 10 ML SDV (SCHEDULED) IV SCH (22:07)
[2018-01-06] MEDS: TAMSULOSIN HCL 0.4 MG CAP.SR.24H PO SCH (22:07)
[2018-01-07] MEDS: LANSOPRAZOLE 30 MG TAB.RAP.DR PO SCH (05:44)
[2018-01-07] MEDS: LEVOTHYROXINE SODIUM 0.05 MG TABLET PO SCH (05:44)
[2018-01-07] MEDS: MORPHINE SULFATE IR 30 MG TABLET PO PRN (05:44)
[2018-01-07] MEDS ORDERED: PROPOFOL INJ 200 MG/20 ML VIAL IV ONE ×2 (08:24→09:57)
[2018-01-07] MEDS ORDERED: FENTANYL CITRATE INJ/PF 100 MCG/2 ML AMPUL ONE (08:24)
[2018-01-07] MEDS ORDERED: MIDAZOLAM 2 MG/2 ML INJ ONE (08:24)
[2018-01-07] MEDS ORDERED: THROMBIN (BOVINE) TOPICAL 20000 UNIT VIAL ONE (08:36)
[2018-01-07] MEDS ORDERED: THROMBIN (BOVINE) 5000 UNIT EPITAXIS KIT ONE (08:37)
[2018-01-07] MEDS ORDERED: BUPIVACAINE INJ/PF LIPOSOME/PF 266 MG/20 ML SDV ONE (08:37)
[2018-01-07] MEDS ORDERED: POLYMYXIN B SULFATE INJ 500000 UNIT VIAL ONE (08:39)
[2018-01-07] MEDS ORDERED: BACITRACIN INJ 50,000 UNIT VIAL ONE (08:39)
[2018-01-07] MEDS ORDERED: LIDOCAINE 1% INJ-PF (10 MG/ML) 30 ML SDV ONE (09:50)
[2018-01-07] MEDS ORDERED: BUPIVACAINE HCL 0.25% /EPINEPHRINE INJ/PF 30 ML SDV ONE (09:50)
[2018-01-07] MEDS ORDERED: OXYCODONE-ACETAMINOPHEN 5-325 MG TABLET PO PRN ×2 (09:52)
[2018-01-07] MEDS ORDERED: PROMETHAZINE HCL INJ 25 MG/1 ML VIAL IV PRN ×2 (09:52)
[2018-01-07] MEDS ORDERED: DIPHENHYDRAMINE HCL 50 MG/ML VIAL IV PRN (09:52)
[2018-01-07] MEDS ORDERED: MEPERIDINE HCL/PF INJ 25 MG/1 ML DISP.SYRIN IV PRN (09:52)
[2018-01-07] MEDS ORDERED: MORPHINE SULFATE 10 MG/ML INJ IV PRN (09:52)
[2018-01-07] MEDS ORDERED: RINGERS SOLUTION,LACTATED 1,000 ML IV PRN (10:53)
[2018-01-07] MEDS: VANCOMYCIN HCL 2,000 MG in DEXTROSE 5%-WATER 500 ML IV SCH ×2 (11:43→22:14)
[2018-01-07] MEDS: MELOXICAM 15 MG TABLET PO SCH (11:47)
[2018-01-07] MEDS: MULTIVITAMIN TABLET PO SCH (11:48)
[2018-01-07] MEDS: FINASTERIDE 5 MG TABLET PO SCH ×2 (11:48→17:35)
[2018-01-07] MEDS: FENOFIBRATE NANOCRYSTALLIZED 145 MG TABLET PO SCH (11:48)
[2018-01-07] MEDS: FERROUS SULFATE 325 MG TABLET PO SCH (11:48)
[2018-01-07] MEDS: LOSARTAN POTASSIUM 50 MG TABLET PO SCH (11:50)
[2018-01-07] MEDS: NORMAL SALINE 10 ML SDV (SCHEDULED) IV SCH ×2 (11:50→22:14)
[2018-01-07] MEDS: MORPHINE SULFATE 60 MG/60 ML RTUINJ IV PRN (12:28)
[2018-01-07] MEDS: ACETAMINOPHEN 325 MG TABLET PO SCH ×2 (15:11→22:13)
[2018-01-07] MEDS: TAMSULOSIN HCL 0.4 MG CAP.SR.24H PO SCH (22:13)
[2018-01-07] MEDS: PRAMIPEXOLE DI-HCL 0.25 MG TABLET PO SCH (22:13)
[2018-01-07] MEDS: SIMVASTATIN 10 MG TABLET PO SCH (22:13)
[2018-01-07 22:44] LABS: VANCOMYCIN,TROUGH 21.8 ug/mL (5.0-20.0)
[2018-01-08] MEDS: MORPHINE SULFATE 60 MG/60 ML RTUINJ IV PRN ×3 (00:30→23:33)
[2018-01-08] MEDS: ACETAMINOPHEN 325 MG TABLET PO SCH ×3 (05:22→22:00)
[2018-01-08] MEDS: LANSOPRAZOLE 30 MG TAB.RAP.DR PO SCH (05:22)
[2018-01-08] MEDS: LEVOTHYROXINE SODIUM 0.05 MG TABLET PO SCH (05:22)
--- NOTE | 2018-01-08 06:19 | PDOC PROGRESS REPORT ---
Subjective Progress Note for:: 01/08/18 Reason For Visit: INFECTED LEFT PROSTHETIC KNEE JOINT 72-year-old white male status post one stage reconstruction for a left periprosthetic knee infection now postop day 1 from an I&D and repeat closure of the skin wound which dehisced. Physical Exam Vital Signs: Temp Pulse Resp BP Pulse Ox 36.8 C 66 18 129/70 H 98 01/07/18 23:02 01/07/18 23:02 01/08/18 00:39 01/07/18 23:02 01/07/18 23:02 Intake & Output 01/06/18 01/07/18 01/08/18 06:59 06:59 06:59 Intake Total 2757 1215 Output Total 1028 9703 1855 Balance -1025 -2163 -640 Weight 130 kg 130.9 kg 126.4 kg General appearance: PRESENT: no acute distress Head exam: PRESENT: normocephalic Respiratory exam: PRESENT: unlabored Cardiovascular exam: PRESENT: RRR Pulses: PRESENT: +1 pedal pulses bilateral Vascular exam: PRESENT: normal capillary refill GI/Abdominal exam: PRESENT: soft Rectal exam: PRESENT: deferred Extremities exam: PRESENT: other - Left lower extremity compressive dressing clean dry and intact. Distal neurovascular examination is intact. Neurological exam: PRESENT: alert, awake, oriented to person, oriented to place , oriented to time, oriented to situation, other - Hard of hearing. ABSENT: motor sensory deficit Psychiatric exam: PRESENT: appropriate affect, normal mood. ABSENT: homicidal ideation, suicidal ideation Skin exam: PRESENT: dry, intact, warm. ABSENT: cyanosis, rash Results Laboratory Results: 01/07/18 22:07 Creatinine 0.88 Est GFR ( Amer) > 60 Est GFR (Non-Af Amer) > 60 Status: Imported from PACS Assessment & Plan - Diagnosis (1) Infected prosthetic knee joint Qualifiers: Encounter type: initial encounter Qualified Code(s): T84.59XA - Infection and inflammatory reaction due to other internal joint prosthesis, initial encounter; Z96.659 - Presence of unspecified artificial knee joint; Z96.659 - Presence of unspecified artificial knee joint Is this a current diagnosis for this admission?: Yes Plan: We will mobilized with physical therapy for weightbearing as tolerated ambulation. Will hold off on range of motion currently because this will stress the suture line. Awaiting intraoperative cultures to make sure that we are treating the appropriate pathogen. Anticipate discharge home tomorrow with home health services. - Time Time Spent with patient: 15-24 minutes Anticipated discharge: Home with Homehealth Within: within 24 hours
[2018-01-08 06:39] LABS: ANION GAP 5 (5-19); BLOOD UREA NITROGEN 15 mg/dL (7-20); CARBON DIOXIDE 27 mmol/L (22-30); CHLORIDE 105 mmol/L (98-107); GLUCOSE 85 mg/dL (75-110); POTASSIUM 4.1 mmol/L (3.6-5.0); SODIUM 137.2 mmol/L (137-145)
[2018-01-08 06:52] LABS: HEMATOCRIT 23.4 % (37.9-51.0); HEMOGLOBIN 7.5 g/dL (13.5-17.0); MEAN CORPUSCULAR HEMOGLOBIN 26.5 pg (27.0-33.4); MEAN CORPUSCULAR HGB CONC 32.3 g/dL (32.0-36.0); MEAN CORPUSCULAR VOLUME 82 fl (80-97); PLATELET COUNT 364 10^3/uL (150-450); RED BLOOD COUNT 2.84 10^6/uL (4.35-5.55); RED CELL DISTRIBUTION WIDTH 17.4 % (11.5-14.0); WHITE BLOOD COUNT 7.2 10^3/uL (4.0-10.5)
[2018-01-08] MEDS: FINASTERIDE 5 MG TABLET PO SCH ×2 (10:51→18:49)
[2018-01-08] MEDS: VANCOMYCIN HCL 1,250 MG in DEXTROSE 5%-WATER 250 ML IV SCH ×2 (10:51→22:00)
[2018-01-08] MEDS: MULTIVITAMIN TABLET PO SCH (10:51)
[2018-01-08] MEDS: LOSARTAN POTASSIUM 50 MG TABLET PO SCH (10:52)
[2018-01-08] MEDS: FENTANYL 50 MCG/HR PATCH.TD72 TD SCH (10:52)
[2018-01-08] MEDS: FERROUS SULFATE 325 MG TABLET PO SCH (10:55)
[2018-01-08] MEDS: NORMAL SALINE 10 ML SDV (SCHEDULED) IV SCH ×2 (10:56→22:35)
[2018-01-08] MEDS: MELOXICAM 15 MG TABLET PO SCH (11:04)
[2018-01-08] MEDS: FENTANYL 100 MCG/HR PATCH.TD72 TD SCH (11:05)
[2018-01-08] MEDS: FENOFIBRATE NANOCRYSTALLIZED 145 MG TABLET PO SCH (11:06)
[2018-01-08] MEDS ORDERED: FENOFIBRATE NANOCRYSTALLIZED 145 MG TABLET PO SCH (17:00)
[2018-01-08] MEDS: TAMSULOSIN HCL 0.4 MG CAP.SR.24H PO SCH (22:00)
[2018-01-08] MEDS: PRAMIPEXOLE DI-HCL 0.25 MG TABLET PO SCH (22:30)
[2018-01-09] MEDS: SIMVASTATIN 10 MG TABLET PO SCH (04:34)
[2018-01-09] MEDS: ACETAMINOPHEN 325 MG TABLET PO SCH (06:30)
[2018-01-09] MEDS: LANSOPRAZOLE 30 MG TAB.RAP.DR PO SCH (06:30)
[2018-01-09] MEDS: LEVOTHYROXINE SODIUM 0.05 MG TABLET PO SCH (06:30)
--- NOTE | 2018-01-09 06:48 | PDOC DISCHARGE SUMMARY ---
General - Admit/Disc Date/PCP Admission Date/Primary Care Provider: 01/05/18 10:40 SHADE GARCÍA MD Discharge Date: 01/09/18 - Discharge Diagnosis (1) Infected prosthetic knee joint Is this a current diagnosis for this admission?: Yes - Additional Information Resuscitation Status: Full Code Home Medications: Fenofibrate Nanocrystallized [Fenofibrate] 145 mg PO DAILY 01/05/18 Fentanyl [Duragesic 100 Mcg/Hr Transdermal Patch] 1 patch TD Q2DAYS 01/05/18 Fentanyl [Duragesic 50 Mcg/Hr Transdermal Patch] 1 patch TD Q2DAYS 01/05/18 Finasteride [Proscar 5 mg Tablet] 5 mg PO BID 01/05/18 Levothyroxine Sodium [Synthroid] 50 mcg PO QAM 01/05/18 Meloxicam [Mobic] 15 mg PO DAILY 01/05/18 Morphine Sulfate [Morphine Ir 30 mg Tablet] 30 mg PO QIDP PRN 01/05/18 Multivitamin [Multiple Vitamins] 1 tab PO DAILY 01/05/18 Oxycodone HCl [Oxy-Ir 5 mg Tablet] 15 mg PO Q6 01/05/18 Pantoprazole Sodium [Protonix] 40 mg PO DAILY 01/05/18 Pramipexole Di-HCl [Mirapex 0.25 mg Tablet] 0.25 mg PO QHS 01/05/18 Simvastatin [Zocor 10 mg Tablet] 10 mg PO QHS 01/05/18 Tamsulosin HCl [Flomax 0.4 mg Cap.sr] 0.8 mg PO QHS 01/05/18 Telmisartan [Micardis 80 mg Tablet] 80 mg PO QAM 01/05/18 History of Present Illness History of Present Illness: Patient is a 72-year-old white male status post left knee one stage revision arthroplasty for periprosthetic infection. Patient presents with a dehiscence of the lower third part of the wound. Hospital Course Hospital Course: Patient was taken to the operating room where he undergoes an I&D and repeat closure of the wound. Pain management is consulted for analgesia. Physical Exam Vital Signs: Temp Pulse Resp BP Pulse Ox 37.2 C 82 16 122/61 97 01/09/18 00:40 01/09/18 00:40 01/09/18 00:40 01/09/18 00:40 01/09/18 00:40 Intake & Output 01/07/18 01/08/18 01/09/18 06:59 06:59 06:59 Intake Total 2758 8673 8176 Output Total 0259 3836 9627 Balance -5710 -2120 -5304 Weight 130.9 kg 126.4 kg 126.8 kg General appearance: PRESENT: no acute distress, mild distress Head exam: PRESENT: normocephalic Respiratory exam: PRESENT: unlabored Cardiovascular exam: PRESENT: RRR Pulses: PRESENT: +1 pedal pulses bilateral Vascular exam: PRESENT: normal capillary refill GI/Abdominal exam: PRESENT: soft Rectal exam: PRESENT: deferred Extremities exam: PRESENT: other - Dressing on the left knee is changed on postop day 2. Wound is well approximated. Continued serosanguineous drainage. Distal neurovascular examination is intact. Results Laboratory Results: 01/08/18 05:20 01/08/18 05:20 01/08/18 05:20 WBC 7.2 RBC 2.84 L Hgb 7.5 L Hct 23.4 L MCV 82 MCH 26.5 L MCHC 32.3 RDW 17.4 H Plt Count 364 Status: Imported from PACS Qualifiers - * PATIENT BEING DISCHARGED WITH ANY OF THE FOLLOWING DIAGNOSIS: No VTE patient discharged on overlapping Therapy?: Yes Plan Discharge Plan: Patient to be discharged home with home health services and continued antibiotic administration. Analgesic medications per pain management. Follow- up with Dr. Calhoun and [facility] for surgery on Friday. Time Spent: Less than 30 Minutes
[2018-01-09] MEDS ORDERED: MORPHINE SULFATE IR 30 MG TABLET PO PRN (07:00)
[2018-01-09 07:03] LABS: HEMATOCRIT 22.9 % (37.9-51.0); MEAN CORPUSCULAR HEMOGLOBIN 27.5 pg (27.0-33.4); MEAN CORPUSCULAR HGB CONC 33.8 g/dL (32.0-36.0); MEAN CORPUSCULAR VOLUME 81 fl (80-97); PLATELET COUNT 385 10^3/uL (150-450); RED BLOOD COUNT 2.82 10^6/uL (4.35-5.55); RED CELL DISTRIBUTION WIDTH 17.5 % (11.5-14.0); RETICULOCYTE COUNT (AUTO) 1.05 % (0.66-2.85); WHITE BLOOD COUNT 7.4 10^3/uL (4.0-10.5)
[2018-01-09 07:04] LABS: HEMOGLOBIN 7.7 g/dL (13.5-17.0)
[2018-01-09 08:27] VITALS: BP 146/80
--- NOTE | 2018-01-09 08:34 | PDOC CONSULTATION ---
Consultation Consult Date: 01/09/18 Consult reason:: Hematology Oncology consultation was requested for patient with chronic anemia. History of Present Illness Admission Date/PCP: 01/05/18 10:40 SHADE GARCÍA MD History of Present Illness: JAYLON FAROOQ is a 72 year old male who has been followed by the undersigned for chronic anemia. He also is followed for MGUS. He was last seen in the office on 11/28/2017 and at that time, his HGB was 7.8. He has undergone an extensive workup as to the cause of his anemia and it has been thought to be multifactoral including anemia of chronic inflammation due to his orthopedic/joint problems. He has not qualified for erythopoetin injections, as his Cr has been normal, although I do believe he would benefit from these. His most recent Ferritin has been elevated and he was evaluated for hemochromatosis and tested negative. It is thought that this is acting as an acute phase reactant. Mr. Farooq underwent Stage I revision of left knee arthroplasty on 12/08/2017. He has had chronic joint infections. He states that this procedure went well. However, last week he had wound dehiscence and increased fluid loss from the wound. He was taken back to the operating room 01/07/2018 for further revision. Cultures are now growing gram negative rods. Today, he states that he is feeling well and he was able to walk some yesterday. He is scheduled to go home today and is very excited. He tells me his pain is controlled and he is eating well. He has not yet had a BM, but believes this will happen as soon as he is home. He denies dyspnea or extreme fatigue. Past Medical History Cardiac Medical History: Reports: Hyperlipidema, Hypertension, Pulmonary Embolism - 2014 Denies: Atrial Fibrillation, Congestive Heart Failure, Coronary Artery Disease, Myocardial Infarction, Peripheral Vascular Disease, Heart Murmur Pulmonary Medical History: Reports: Pneumonia Denies: Asthma - shortness of breath, Bronchitis, Chronic Obstructive Pulmonary Disease (COPD), Respiratory Failure, Sleep Apnea, Tuberculosis EENT Medical History: Reports: Ears - UNGA Neurological Medical History: Denies: Hemorrhagic CVA, Ischemic CVA, Seizures Endocrine Medical History: Reports: Hypothyroidism Denies: Diabetes Mellitus Type 2, Hyperthyroidism Renal/ Medical History: Denies: Chronic Kidney Disease, End Stage Renal Disease Renal/ History Note: BPH Malignancy Medical History: Reports: None Denies: Leukemia, Lung Cancer GI Medical History: Reports: Gastroesophageal Reflux Disease Denies: Crohn's Disease, Hiatal Hernia Musculoskeltal Medical History: Reports: Arthritis, Other - Chronic pain Denies: Fibromyalgia Psychiatric Medical History: Reports: None Denies: Dementia Hematology: Reports: Anemia, Other - MGUS Denies: Hemophilia, Sickle Cell Disease Infectious Medical History: Reports: None Denies: HIV Past Surgical History Past Surgical History: Reports: Orthopedic Surgery - bilateral knee replacement , right rotator cuff, Other - Nasal/Sinus x2, vasectomy. Denies: Appendectomy, Cholecystectomy, Colostomy, Coronary Artery Bypass Graft, Gastric Bypass Surgery, Herniorrhaphy, Pacemaker, Tonsillectomy Social History Occupation: Retired [employer] Lives with: Spouse/Significant other Smoking Status: Former Smoker Number of Years Smokin Last Time Smoked: 1977 Frequency of Alcohol Use: None Hx Recreational Drug Use: No Drugs: None Hx Prescription Drug Abuse: No Past Social History Note: 3 kids, 5 grandkids. - Advance Directive Resuscitation Status: Full Code Family History Family History: Reviewed & Not Pertinent, Hypertension Parental Family History Reviewed: Yes - Father of CHF Children Family History Reviewed: Yes Sibling(s) Family History Reviewed.: Yes Medication/Allergy Home Medications: Fenofibrate Nanocrystallized [Fenofibrate] 145 mg PO DAILY 01/05/18 Fentanyl [Duragesic 100 Mcg/Hr Transdermal Patch] 1 patch TD Q2DAYS 01/05/18 Fentanyl [Duragesic 50 Mcg/Hr Transdermal Patch] 1 patch TD Q2DAYS 01/05/18 Finasteride [Proscar 5 mg Tablet] 5 mg PO BID 01/05/18 Levothyroxine Sodium [Synthroid] 50 mcg PO QAM 01/05/18 Meloxicam [Mobic] 15 mg PO DAILY 01/05/18 Morphine Sulfate [Morphine Ir 30 mg Tablet] 30 mg PO QIDP PRN 01/05/18 Multivitamin [Multiple Vitamins] 1 tab PO DAILY 01/05/18 Oxycodone HCl [Oxy-Ir 5 mg Tablet] 15 mg PO Q6 01/05/18 Pantoprazole Sodium [Protonix] 40 mg PO DAILY 01/05/18 Pramipexole Di-HCl [Mirapex 0.25 mg Tablet] 0.25 mg PO QHS 01/05/18 Simvastatin [Zocor 10 mg Tablet] 10 mg PO QHS 01/05/18 Tamsulosin HCl [Flomax 0.4 mg Cap.sr] 0.8 mg PO QHS 01/05/18 Telmisartan [Micardis 80 mg Tablet] 80 mg PO QAM 01/05/18 Allergies/Adverse Reactions: No Known Allergies Allergy (Verified 01/05/18 09:25) Review of Systems Constitutional: ABSENT: fever(s), headache(s) Eyes: ABSENT: visual disturbances Ears: ABSENT: hearing changes Nose, Mouth, and Throat: ABSENT: sore throat Cardiovascular: ABSENT: chest pain Respiratory: ABSENT: dyspnea Gastrointestinal: PRESENT: constipation Musculoskeletal: PRESENT: as per HPI Integumentary: PRESENT: as per HPI Neurological: PRESENT: as per HPI Psychiatric: ABSENT: anxiety Hematologic/Lymphatic: PRESENT: easy bruising Physical Exam Vital Signs: Temp Pulse Resp BP Pulse Ox 98.2 F 78 18 139/66 H 95 01/09/18 07:21 01/09/18 07:21 01/09/18 07:21 01/09/18 07:21 01/09/18 07:21 Intake & Output 01/08/18 01/09/18 01/10/18 06:59 06:59 06:59 Intake Total 1275 1951 Output Total 9417 7865 Balance -1330 -1574 Weight 126.4 kg 126.8 kg General appearance: PRESENT: no acute distress, well-developed, well-nourished Exam: 72 year old male. Head exam: PRESENT: normocephalic Eye exam: PRESENT: EOMI Mouth exam: PRESENT: tongue midline Neck exam: ABSENT: lymphadenopathy, tenderness Respiratory exam: PRESENT: clear to auscultation mark, unlabored Cardiovascular exam: PRESENT: RRR. ABSENT: systolic murmur Pulses: PRESENT: normal dorsalis pedis pul GI/Abdominal exam: PRESENT: soft. ABSENT: tenderness Extremities exam: PRESENT: +1 edema, other - Left knee with dressing in place. effusion and echymoses. Some serosangenous fluid drainage. Neurological exam: PRESENT: alert, awake, oriented to person, oriented to place , oriented to time, oriented to situation Psychiatric exam: PRESENT: appropriate affect Focused psych exam: ABSENT: psychomotor agitation Skin exam: PRESENT: normal color Results Laboratory Results: 01/09/18 06:40 01/08/18 05:20 01/09/18 06:40 WBC 7.4 RBC 2.82 L Hgb 7.7 L Hct 22.9 L MCV 81 MCH 27.5 MCHC 33.8 RDW 17.5 H Plt Count 385 Retic Count (auto) 1.05 Absolute Retic 0.030 Assessment & Plan - Diagnosis (1) Anemia Qualifiers: Anemia type: other cause Other causes of anemia: chronic disease, other Qualified Code(s): D63.8 - Anemia in other chronic diseases classified elsewhere Is this a current diagnosis for this admission?: Yes Plan: Multifactoral anemia, but there has not been evidence of iron deficiency recently. I am awaiting further labs this morning. Patient has been started on FeSO4 and may continue this for a short time, but he has also had evidence of iron overload. I believe most of his anemia is a low erythropoetin level due to chronic inflammation and infection. He may benefit from Procrit if this can be arranged. However, otherwise, blood transfusions are the only other means of treatment. I do not believe he needs a blood transfusion currently. He is hemodynamically stable. (2) Infected prosthetic knee joint Qualifiers: Encounter type: initial encounter Qualified Code(s): T84.59XA - Infection and inflammatory reaction due to other internal joint prosthesis, initial encounter; Z96.659 - Presence of unspecified artificial knee joint; Z96.659 - Presence of unspecified artificial knee joint Is this a current diagnosis for this admission?: Yes Plan: Per Dr. Calhoun. - Plan Summary Plan Summary: I will be happy to follow his H/H as an outpatient and will arrange appointment.
[2018-01-09] MEDS: NORMAL SALINE 10 ML SDV (SCHEDULED) IV SCH (09:27)
--- NOTE | 2018-02-06 12:04 | Operative Report ---
Operative Report DATE OF SURGERY: 01/09/18 PREOPERATIVE DIAGNOSIS: Status post revision left knee arthroplasty with wound dehiscence OPERATION: Irrigation debridement and repeat wound closure SURGEON: SUZETTE HOGAN ANESTHESIA: GA TISSUE REMOVED OR ALTERED: Cultures x2 to microbiology, skin debridement with fascia to pathology ESTIMATED BLOOD LOSS: 100 100 PROCEDURE: The patient supine and operative table left lower extremities prepped and draped sterile fashion. Limb is elevated for exsanguination. Tourniquet inflated 280 torr. Existing sutures that had pulled out are removed. Cultures are sent for culture and sensitivity. The skin edges were debrided sharply using a 15 blade. 0 PDS suture was then used to reapproximate the skin edges. A sterile compressive dressing was applied and the patient's return to PACU in satisfactory condition.
== END 2018-01-09 09:55 | disposition home health service (06) | DRG 857 ==
LOC: ER 09:21 → EH 10:40 → 4N 19:33
PROVIDERS: ADMIT Orthopaedic Surgery; ATTEND Orthopaedic Surgery
PROC: 0JBP0ZZ Excision of Left Lower Leg Subcutaneous Tissue and Fascia, Open Approach (ICD-10-PCS; principal; 2018-01-09)
DX: T81.4XXA Infection following a procedure, initial encounter (principal); T81.31XA Disruption of external operation (surgical) wound, not elsewhere classified, initial encounter; M00.862 Arthritis due to other bacteria, left knee; M00.9 Pyogenic arthritis, unspecified; B96.5 Pseudomonas (aeruginosa) (mallei) (pseudomallei) as the cause of diseases classified elsewhere; B96.89 Other specified bacterial agents as the cause of diseases classified elsewhere; D50.9 Iron deficiency anemia, unspecified; E03.9 Hypothyroidism, unspecified; E78.5 Hyperlipidemia, unspecified; I10 Essential (primary) hypertension; J44.9 Chronic obstructive pulmonary disease, unspecified; K21.9 Gastro-esophageal reflux disease without esophagitis; N40.0 Benign prostatic hyperplasia without lower urinary tract symptoms; G25.81 Restless legs syndrome; G89.29 Other chronic pain; Z87.891 Personal history of nicotine dependence
CPT/HCPCS: 01320; 36415; 80048; 80202; 82565; 85025; 85027; 85045; 85610; 85652; 85730; 86140; 87040; 87070; 87075; 87077; 87186; 87205; 96374; 99284; C9290; G8978-GP; G8979-GP; J1642; J2250; J2270; J2704; J3010; J3370; J3490; J7060

== ENCOUNTER 2018-07-06 11:39 | Inpatient (IN) | payer MEDICARE, OTHER ==
[2018-07-06 12:32] LABS: APPEARANCE,URINE CLEAR; BILIRUBIN,URINE NEGATIVE (NEGATIVE); COLOR,URINE YELLOW; GLUCOSE, URINE NEGATIVE (NEGATIVE); KETONES,URINE NEGATIVE (NEGATIVE); LEUKOCYTE ESTERASE,URINE NEGATIVE (NEGATIVE); NITRITE,URINE NEGATIVE (NEGATIVE); PROTEIN,URINE NEGATIVE (NEGATIVE); URINE SPECIFIC GRAVITY 1.013
[2018-07-06 12:44] LABS: HEMATOCRIT 29.1 % (37.9-51.0); HEMOGLOBIN 9.8 g/dL (13.5-17.0); MEAN CORPUSCULAR HEMOGLOBIN 28.1 pg (27.0-33.4); MEAN CORPUSCULAR HGB CONC 33.8 g/dL (32.0-36.0); MEAN CORPUSCULAR VOLUME 83 fl (80-97); PLATELET COUNT 364 10^3/uL (150-450); RED CELL DISTRIBUTION WIDTH 15.9 % (11.5-14.0); WHITE BLOOD COUNT 12.4 10^3/uL (4.0-10.5)
[2018-07-06 12:45] LABS: INTERNATIONAL RATION (INR) 1.06; PROTHROMBIN TIME 14.3 SEC (11.4-15.4)
--- NOTE | 2018-07-06 12:49 | RADIOLOGY REPORT (SQ) ---
EXAM DESCRIPTION: CHEST SINGLE VIEW COMPLETED DATE/TIME: 07/06/2018 12:39 pm REASON FOR STUDY: chest pain COMPARISON: 04/03/2016 EXAM PARAMETERS: NUMBER OF VIEWS: One view. TECHNIQUE: Single frontal radiographic view of the chest acquired. RADIATION DOSE: NA LIMITATIONS: None. FINDINGS: LUNGS AND PLEURA: Mild pulmonary edema. Bibasilar opacification. MEDIASTINUM AND HILAR STRUCTURES: No masses. Contour normal. HEART AND VASCULAR STRUCTURES: Heart size is borderline. BONES: No acute findings. HARDWARE: None in the chest. OTHER: No other significant finding. IMPRESSION: Borderline cardiomegaly with mild pulmonary edema. Cannot exclude bibasilar pneumonia. TECHNICAL DOCUMENTATION: JOB ID: [id number] [employer]- All Rights Reserved Reading location - IP/workstation name: [email or web address]
[2018-07-06 13:01] LABS: ALANINE AMINOTRANSFERASE 47 U/L (21-72); ALBUMIN 3.2 g/dL (3.5-5.0); ALKALINE PHOSPHATASE 102 U/L (38-126); ANION GAP 10 (5-19); ASPARTATE AMINO TRANSFERASE 66 U/L (17-59); BILIRUBIN,DIRECT 0.5 mg/dL (0.0-0.4); BILIRUBIN,TOTAL 0.7 mg/dL (0.2-1.3); BLOOD UREA NITROGEN 30 mg/dL (7-20); CALCIUM 10.3 mg/dL (8.4-10.2); CARBON DIOXIDE 24 mmol/L (22-30); CHLORIDE 103 mmol/L (98-107); CREATINE KINASE 385 U/L (55-170); GLUCOSE 99 mg/dL (75-110); POTASSIUM 4.3 mmol/L (3.6-5.0); SODIUM 136.9 mmol/L (137-145); TOTAL PROTEIN 6.5 g/dL (6.3-8.2)
--- NOTE | 2018-07-06 13:01 | ER Document Report ---
ED General - General Chief Complaint: Altered Mental Status Stated Complaint: ALTERED MENTAL STATUS Time Seen by Provider: 07/06/18 12:50 Primary Care Provider: SUZETTE HOGAN MD [ACTIVE STAFF] - Follow up as needed Notes: Patient has been confused this morning. says she went out to run some errands about 8 AM and he was fine. Came back about 10:30 AM and found that he was laying across the bed and could not get up. He has hearing aids and could not get his hearing aids in here. She noticed that his jaws and hands were shaking. And, he was confused at times, calling the by the daughter's name, etc. Otherwise, patient has been mumbling. is not sure if patient has some degree of dementia. also noted that the patient had some redness of both of his lower legs began today. Patient has a history of prostate problems for which he sees a local urologist. No recent UTIs, however. Has never had a stroke. Has to use a walker, because he has chronic pain in both knees from multiple surgeries. TRAVEL OUTSIDE OF THE [place] IN LAST 30 DAYS: No - Related Data Allergies/Adverse Reactions: No Known Allergies Allergy (Verified 01/05/18 09:25) Past Medical History - Social History Smoking Status: Former Smoker - Stopped about 30 years ago. Family History: Reviewed & Not Pertinent, Hypertension - Past Medical History Cardiac Medical History: Reports: Hx Hypercholesterolemia, Hx Hypertension, Hx Pulmonary Embolism - 2014 Pulmonary Medical History: Reports: Hx Pneumonia Neurological Medical History: Denies: Hx Cerebrovascular Accident, Hx Seizures Endocrine Medical History: Reports: Hx Hypothyroidism Renal/ Medical History: Reports: Hx Benign Prostatic Hyperplasia - nocturia x 2/night with urgency GI Medical History: Reports: Hx Gastroesophageal Reflux Disease Musculoskeletal Medical History: Reports Hx Arthritis Skin Medical History: Reports Hx Cellulitis Psychiatric Medical History: Denies: Hx Dementia Traumatic Medical History: Denies: Hx Fractures Past Surgical History: Reports: Hx Nose Surgery, Hx Orthopedic Surgery - bilateral knee replacement, right rotator cuff, Other - Nasal/Sinus x2, vasectomy. - Immunizations Immunizations up to date: No Hx Diphtheria, Pertussis, Tetanus Vaccination: - Unsure Hx Pneumococcal Vaccination: 01/12/14 Review of Systems - Review of Systems Notes: REVIEW OF SYSTEMS: CONSTITUTIONAL : Denies fever. EENT: Denies eye, nose or mouth or throat pain or other symptoms. Patient is hard of hearing and wears hearing aids. CARDIOVASCULAR: Denies chest pain. RESPIRATORY: Denies cough, chest congestion, or shortness of breath. GASTROINTESTINAL: Denies abdominal pain or nausea, vomiting, or diarrhea. GENITOURINARY: History of prostate problems for which he is on medications. MUSCULOSKELETAL: Denies back or neck pain. Denies joint pain or swelling. Chronic joint pain, especially both knees from multiple surgeries. SKIN: Red rash on the anterior aspects of both shins which is new today. NEUROLOGICAL: Unable to answer questions because he cannot hear without his hearing aids. Seems to be confused. See HPI. ALL OTHER SYSTEMS REVIEWED AND NEGATIVE. Physical Exam - Vital signs Vitals: Resp 20 07/06/18 11:54 Interpretation: Tachycardic, Febrile Notes: PHYSICAL EXAMINATION: GENERAL: Well-appearing, in no acute distress. Seems to be confused. Does not answer questions appropriately. Not sure how much of this is chronic versus acute. Febrile. HEAD: Atraumatic, normocephalic. EYES: Pupils equal round and reactive to light, extraocular movements intact. ENT: oropharynx clear without exudates. Moist mucous membranes. NECK: Normal range of motion, supple. LUNGS: Breath sounds clear and equal bilaterally. HEART: Regular rate and rhythm without murmurs. Heart rate 120. ABDOMEN: Soft, nontender. No guarding or rebound. No masses. BACK: No tenderness throughout entire back. EXTREMITIES: Multiple scars of both knees from prior surgeries. No effusions or redness or swelling of the knees. Patient does have erythematous rash of the anterior aspect of both shins which is warm to the touch. NEUROLOGICAL: Confused. Does not answer questions or follow commands. Moves all 4 extremities. Awake and alert. PSYCH: Unable to assess. SKIN: Warm, dry, no rashes. Course - Vital Signs Vital signs: Temp Pulse Resp BP Pulse Ox 100.0 F 128 H 14 106/72 95 07/06/18 13:52 07/06/18 12:02 07/06/18 14:31 07/06/18 14:31 07/06/18 14:31 - Laboratory Result Diagrams: 07/06/18 12:24 07/06/18 12:24 Laboratory results interpreted by me: 07/06/18 07/06/18 07/06/18 11:55 12:24 12:24 WBC 12.4 H RBC 3.50 L Hgb 9.8 L Hct 29.1 L RDW 15.9 H Seg Neuts % (Manual) 93 H Lymphocytes % (Manual) 2 L Monocytes % (Manual) 0 L Abs Neuts (Manual) 11.5 H Abs Lymphs (Manual) 0.2 L Abs Monocytes (Manual) 0.0 L Sodium 136.9 L BUN 30 H Est GFR (Non-Af Amer) 59 L Calcium 10.3 H Direct Bilirubin 0.5 H AST 66 H Creatine Kinase 385 H Albumin 3.2 L Urine Urobilinogen 2.0 H - Diagnostic Test Radiology results interpreted by tx: 07/06/18 13:10 Chest x-ray shows borderline cardiomegaly with mild pulmonary edema. Cannot exclude bibasilar pneumonia. - EKG Interpretation by Ar EKG shows normal: Sinus rhythm Rate: Tachycardia Additional EKG results interpreted by tx: 07/06/18 13:11 EKG essentially normal otherwise. Discharge - Discharge Clinical Impression: Pneumonia, Cellulitis of both lower extremities Condition: Stable Disposition: ADMITTED INPATIENT Admitting Provider: Hospitalist Unit Admitted: Telemetry Referrals: SUZETTE HOGAN MD [ACTIVE STAFF] - Follow up as needed
[2018-07-06] MEDS ORDERED: CEFTRIAXONE 1 GM/D5W RTU 1 GM/50 ML RTUPB IV ONE (13:06)
[2018-07-06 13:13] LABS: CREATINE KINASE MB 1.15 ng/mL (<4.55)
[2018-07-06 13:16] LABS: ABSOLUTE LYMPHOCYTES# (MANUAL) 0.2 10^3/uL (0.5-4.7); ABSOLUTE NEUTROPHILS# (MANUAL) 11.5 10^3/uL (1.7-8.2); BASOPHILS % (MANUAL) 0 % (0-2); EOSINOPHILS % (MANUAL) 5 % (0-6); LYMPHOCYTES % (MANUAL) 2 % (13-45); MONOCYTES % (MANUAL) 0 % (3-13); SEGMENTED NEUTROPHILS % (MAN) 93 % (42-78); TOTAL CELLS COUNTED 100
[2018-07-06 13:17] LABS: ANISOCYTOSIS 1+; OVALOCYTES SLIGHT; PLATELET COMMENT ADEQUATE; POIKILOCYTOSIS SLIGHT; SCHISTOCYTES SLIGHT; TROPONIN I 0.053 ng/mL
--- NOTE | 2018-07-06 13:37 | RADIOLOGY REPORT (SQ) ---
EXAM DESCRIPTION: CT HEAD WITHOUT COMPLETED DATE/TIME: 07/06/2018 1:31 pm REASON FOR STUDY: Confused COMPARISON: 03/16/2015 TECHNIQUE: Axial images acquired through the brain without intravenous contrast. Images reviewed wi th bone, brain and subdural windows. Additional sagittal and coronal reconstructions were generated. Images stored on PACS. All CT scanners at this facility use dose modulation, iterative reconstruction, and/or weight based d osing when appropriate to reduce radiation dose to as low as reasonably achievable (ALARA). [facility]: Dose Right [facility]: CareDose [facility]: Dose Right [facility]: Teradose 4D [facility]: [employer] RADIATION DOSE: CT Rad equipment meets quality standard of care and radiation dose reduction techniq ues were employed. CTDIvol: 53.2 mGy. DLP: 1070 mGy-cm. mGy. LIMITATIONS: None. FINDINGS: VENTRICLES: Normal size and contour. CEREBRUM: No masses. No hemorrhage. No midline shift. No evidence for acute infarction. Normal gra y/white matter differentiation. No areas of low density in the white matter. CEREBELLUM: No masses. No hemorrhage. No alteration of density. No evidence for acute infarction. EXTRAAXIAL SPACES: No fluid collections. No masses. ORBITS AND GLOBE: No intra- or extraconal masses. Normal contour of globe without masses. CALVARIUM: No fracture. PARANASAL SINUSES: No fluid or mucosal thickening. SOFT TISSUES: No mass or hematoma. OTHER: No other significant finding. IMPRESSION: No acute intracranial pathology. EVIDENCE OF ACUTE STROKE: NO. COMMENT: Quality ID # [id number]: Final reports with documentation of one or more dose reduction techniques (e.g., Automated exposure control, adjustment of the mA and/or kV according to patient size, use of iterative reconstruction technique) TECHNICAL DOCUMENTATION: JOB ID: [id number] [employer]- All Rights Reserved Reading location - IP/workstation name: [email or web address]
[2018-07-06] MEDS: TAMSULOSIN HCL 0.4 MG CAP.SR.24H PO SCH (18:21)
[2018-07-06] MEDS: AZITHROMYCIN 500 MG in DEXTROSE 5%-WATER 250 ML IV SCH (18:21)
--- NOTE | 2018-07-06 21:27 | EKG REPORT ---
SEVERITY:- OTHERWISE NORMAL ECG - SINUS TACHYCARDIA VENTRICULAR PREMATURE COMPLEX : Confirmed by: Allison Garcia MD 06-Jul-2018 21:26:47
[2018-07-06] MEDS: FENOFIBRATE NANOCRYSTALLIZED 145 MG TABLET PO SCH (21:51)
[2018-07-06] MEDS: DOCUSATE SODIUM 100 MG CAPSULE PO SCH (21:51)
[2018-07-06] MEDS: FAMOTIDINE 20 MG TABLET PO SCH (21:51)
[2018-07-06] MEDS: PRAMIPEXOLE DI-HCL 0.25 MG TABLET PO SCH (21:51)
[2018-07-06] MEDS: SIMVASTATIN 10 MG TABLET PO SCH (21:51)
[2018-07-06] MEDS ORDERED: [UNRECOGNIZED DRUG - OTHER] PO SCH (22:00)
[2018-07-06] MEDS ORDERED: CHOLECALCIFEROL 2000 MG PO SCH (22:00)
[2018-07-06] MEDS ORDERED: (PENDING PHARMACY ID) (Gabapentin Enacarbil [Horizant] 600 MG) PO SCH (22:00)
[2018-07-06] MEDS: ACETAMINOPHEN 325 MG TABLET PO PRN (22:00)
[2018-07-06] MEDS ORDERED: (PENDING PHARMACY ID) (Telmisartan [Micardis 80 Mg Tablet] 80 MG) PO SCH (22:00)
[2018-07-06] MEDS: NORMAL SALINE 1000 ML 1,000 ML IV PRN (22:01)
[2018-07-06] MEDS: LOSARTAN POTASSIUM 50 MG TABLET PO SCH (22:44)
[2018-07-07 04:28] LABS: RED BLOOD COUNT 3.07 10^6/uL (4.35-5.55); WHITE BLOOD COUNT 12.9 10^3/uL (4.0-10.5)
[2018-07-07 04:29] LABS: ABSOLUTE EOSINOPHILS # (AUTO) 0.3 10^3/uL (0.0-0.6); ABSOLUTE LYMPHOCYTES (AUTO) 1.4 10^3/uL (0.5-4.7); ABSOLUTE MONOCYTES (AUTO) 0.9 10^3/uL (0.1-1.4); ABSOLUTE NEUT (AUTO) 10.4 10^3/uL (1.7-8.2); BASOPHILS % (AUTO) 0.4 % (0-2); EOSINOPHILS % (AUTO) 2.3 % (0-6); HEMATOCRIT 25.6 % (37.9-51.0); HEMOGLOBIN 8.5 g/dL (13.5-17.0); LYMPHOCYTES % (AUTO) 10.5 % (13-45); MEAN CORPUSCULAR HEMOGLOBIN 27.7 pg (27.0-33.4); MEAN CORPUSCULAR HGB CONC 33.3 g/dL (32.0-36.0); MEAN CORPUSCULAR VOLUME 83 fl (80-97); MONOCYTES % (AUTO) 6.7 % (3-13); PLATELET COUNT 300 10^3/uL (150-450); SEGMENTED NEUTROPHILS % (AUTO) 80.1 % (42-78); TOTAL CELLS COUNTED % (AUTO) 100 %
[2018-07-07 04:56] LABS: ALANINE AMINOTRANSFERASE 43 U/L (21-72); ALBUMIN 2.7 g/dL (3.5-5.0); ALKALINE PHOSPHATASE 73 U/L (38-126); ANION GAP 8 (5-19); ASPARTATE AMINO TRANSFERASE 75 U/L (17-59); BILIRUBIN,DIRECT 0.5 mg/dL (0.0-0.4); BILIRUBIN,TOTAL 0.7 mg/dL (0.2-1.3); BLOOD UREA NITROGEN 27 mg/dL (7-20); CALCIUM 9.9 mg/dL (8.4-10.2); CARBON DIOXIDE 24 mmol/L (22-30); CHLORIDE 106 mmol/L (98-107); GLUCOSE 84 mg/dL (75-110); POTASSIUM 3.8 mmol/L (3.6-5.0); SODIUM 137.6 mmol/L (137-145)
[2018-07-07] MEDS: LEVOTHYROXINE SODIUM 0.05 MG TABLET PO SCH (05:33)
--- NOTE | 2018-07-07 07:16 | PDOC H&P ---
History of Present Illness Admission Date/PCP: 07/06/18 15:30 SHADE GARCÍA MD Patient complains of: AMS History of Present Illness: JAYLON GREEN is a 73 year old male with a PMH of HLD, GERD, PE (2014, not on a/c) bilateral knee replacements. He presented to [facility] via EMS after his found him minimally responsive and falling off the bed this morning. Per the , she left the house at 0830 and returned at 1030. When she came home, the patient was face down on the bed with the bottom half of his body on the ground and was very altered, unable to answer questions appropriately. This prompted her to call EMS. Upon arrival to [facility], head CT was normal. CXR revealed bilateral infiltrates (+) PNA. Laboratory studies reveal leukocytosis (WBC 12), with 93% neutrophils. CK was elevated 385. The patient was given IV Rocephin and admitted to the hospitalist service for community acquired PNA. Upon assessment, the patient is in bed on supplemental O2. According to the , he is very hard of hearing and he was not wearing his hearing aids. The patient opened his eyes to tactile stimuli but was unable to hear/answer questions. He quickly fell back asleep during the physical assessment. Lung sounds were coarse, no wheezing. No peripheral or central cyanosis. S1S2, palpable pulses in all extremities. +pedal edema. B/l knee replacement sites have healed over, R knee has some scabbing to the skin. Anterior lower extremities are erythematous and warm to touch. 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 Past Medical History Cardiac Medical History: Reports: Hyperlipidema, Hypertension, Pulmonary Embolism - 2014 Denies: Atrial Fibrillation, Congestive Heart Failure, Myocardial Infarction Pulmonary Medical History: Reports: Pneumonia Denies: Asthma - shortness of breath, Bronchitis, Chronic Obstructive Pulmonary Disease (COPD), Tuberculosis Neurological Medical History: Denies: Seizures Endocrine Medical History: Reports: Hypothyroidism Denies: Diabetes Mellitus Type 2 Renal/ Medical History: Denies: End Stage Renal Disease GI Medical History: Reports: Gastroesophageal Reflux Disease Denies: Hiatal Hernia Musculoskeltal Medical History: Reports: Arthritis Psychiatric Medical History: Denies: Dementia Hematology: Reports: Anemia Denies: Hemophilia, Sickle Cell Disease Past Surgical History Past Surgical History: Reports: Orthopedic Surgery - bilateral knee replacement, right rotator cuff, Other - Nasal/Sinus x2, vasectomy. Denies: Appendectomy, Cholecystectomy, Tonsillectomy Social History Information Source: Relative - Lives with: Spouse/Significant other Smoking Status: Former Smoker Pipes Per Day: 1 Number of Years Smokin - SMOKED CIGARETTES FOR 20YRS THEN MOVED ON TO PIPE THEN TOBACCO DIP Last Time Smoked: 10-20 YRS AGO Frequency of Alcohol Use: None Hx Recreational Drug Use: No Drugs: None Hx Prescription Drug Abuse: No - Advance Directive Resuscitation Status: Full Code Family History Family History: Reviewed & Not Pertinent, Hypertension Parental Family History Reviewed: Yes Children Family History Reviewed: Unknown Sibling(s) Family History Reviewed.: Unknown Medication/Allergy Home Medications: Ascorbic Acid [Vitamin C] 1,000 mg PO QAM 07/06/18 Cholecalciferol (Vitamin D3) [Vitamin D3 2000 unit Tablet] 2,000 mg PO Q12 07/06/18 Cinnamon Bark [Cinnamon Bark 500 mg Capsule] 500 mg PO Q12 07/06/18 Docusate Sodium [Stool Softener] 100 mg PO Q12 07/06/18 Fenofibrate Nanocrystallized [Tricor 145 mg Tablet] 145 mg PO QHS 07/06/18 Fentanyl [Duragesic 75 Mcg/Hr Transdermal Patch] 75 mcg TD Q3D 07/06/18 Finasteride [Proscar 5 mg Tablet] 5 mg PO Q12 07/06/18 Fish Oil/Dha/Epa [Fish Oil 1,200 mg Fish Oil] 1 cap PO Q12 07/06/18 Gabapentin Enacarbil [Horizant] 600 mg PO Q12 07/06/18 Glucosamine HCl 1,500 mg PO QAM 07/06/18 Levothyroxine Sodium 50 mcg PO Q6AM 07/06/18 Meloxicam [Mobic] 15 mg PO QAM 07/06/18 Multivit-Min/Folic/Vit K/Lycop [Men's 50 Plus Multivitamin Tab] 1 tab PO QAM 07/06/18 Niacin 500 mg PO Q12 07/06/18 Oxycodone HCl 30 mg PO Q4HP PRN 07/06/18 Pantoprazole Sodium [Protonix [address] Tablet] 40 mg PO QAM 07/06/18 Pramipexole Di-HCl [Mirapex 0.25 mg Tablet] 0.25 mg PO QHS 07/06/18 Simvastatin [Zocor 10 mg Tablet] 10 mg PO QHS 07/06/18 Tamsulosin HCl [Flomax 0.4 mg Cap.sr] 0.4 mg PO QPM 07/06/18 Telmisartan [Micardis 80 mg Tablet] 80 mg PO QHS 07/06/18 Tetracycline HCl 500 mg PO QAM 07/06/18 Allergies/Adverse Reactions: No Known Allergies Allergy (Verified 01/05/18 09:25) Review of Systems ROS unobtainable: Due to mental status Physical Exam Vital Signs: Temp Pulse Resp BP Pulse Ox 98.5 F 58 L 17 96/55 L 98 07/06/18 23:09 07/07/18 02:00 07/06/18 23:09 07/06/18 23:09 07/06/18 23:09 Intake & Output 07/06/18 07/07/18 07/08/18 06:59 06:59 06:59 Intake Total 400 Output Total 1100 Balance -700 Weight 116.1 kg General appearance: PRESENT: morbidly obese Eye exam: PRESENT: conjunctiva pink, PERRLA Mouth exam: PRESENT: moist, tongue midline Neck exam: PRESENT: full ROM Respiratory exam: PRESENT: symmetrical, unlabored, other - COARSE LUNG SOUNDS. ABSENT: wheezes Cardiovascular exam: PRESENT: RRR Pulses: PRESENT: normal radial pulses, normal dorsalis pedis pul Vascular exam: PRESENT: normal capillary refill GI/Abdominal exam: PRESENT: normal bowel sounds, soft. ABSENT: distended Rectal exam: PRESENT: deferred Extremities exam: PRESENT: joint swelling - B/L KNEES. ABSENT: full ROM Musculoskeletal exam: PRESENT: deformity - KNEE REPLACEMENT SITES. ABSENT: full ROM, normal inspection Neurological exam: PRESENT: other - DIFFICULT TO ASSESS B/C PATIENT IS BIG [place] AND WITHOUT HEARING AIDS. ABSENT: alert, awake, oriented to person, oriented to place, oriented to time, oriented to situation Skin exam: PRESENT: dry, intact, normal color Results Laboratory Results: 07/07/18 04:08 07/07/18 04:08 07/06/18 07/06/18 07/06/18 11:55 12:24 12:24 WBC 12.4 H RBC 3.50 L Hgb 9.8 L Hct 29.1 L MCV 83 MCH 28.1 MCHC 33.8 RDW 15.9 H Plt Count 364 Seg Neutrophils % Not Reportable Lymphocytes % Not Reportable Monocytes % Not Reportable Eosinophils % Not Reportable Basophils % Not Reportable Absolute Neutrophils Not Reportable Absolute Lymphocytes Not Reportable Absolute Monocytes Not Reportable Absolute Eosinophils Not Reportable Absolute Basophils Not Reportable Sodium 136.9 L Potassium 4.3 Chloride 103 Carbon Dioxide 24 Anion Gap 10 BUN 30 H Creatinine 1.20 Est GFR ( Amer) > 60 Est GFR (Non-Af Amer) 59 L Glucose 99 Lactic Acid Calcium 10.3 H Total Bilirubin 0.7 AST 66 H ALT 47 Alkaline Phosphatase 102 Total Protein 6.5 Albumin 3.2 L Urine Color YELLOW Urine Appearance CLEAR Urine pH 8.0 Ur Specific [place] 1.013 Urine Protein NEGATIVE Urine Glucose (UA) NEGATIVE Urine Ketones NEGATIVE Urine Blood NEGATIVE Urine Nitrite NEGATIVE Ur Leukocyte Esterase NEGATIVE Urine WBC (Auto) 0 Urine RBC (Auto) 4 07/06/18 07/07/18 07/07/18 12:24 04:08 04:08 WBC 12.9 H RBC 3.07 L Hgb 8.5 L Hct 25.6 L MCV 83 MCH 27.7 MCHC 33.3 RDW 16.0 H Plt Count 300 Seg Neutrophils % 80.1 H Lymphocytes % 10.5 L Monocytes % 6.7 Eosinophils % 2.3 Basophils % 0.4 Absolute Neutrophils 10.4 H Absolute Lymphocytes 1.4 Absolute Monocytes 0.9 Absolute Eosinophils 0.3 Absolute Basophils 0.0 Sodium 137.6 Potassium 3.8 Chloride 106 Carbon Dioxide 24 Anion Gap 8 BUN 27 H Creatinine 1.08 Est GFR ( Amer) > 60 Est GFR (Non-Af Amer) > 60 Glucose 84 Lactic Acid 1.2 Calcium 9.9 Total Bilirubin 0.7 AST 75 H ALT 43 Alkaline Phosphatase 73 Total Protein 6.0 L Albumin 2.7 L Urine Color Urine Appearance Urine pH Ur Specific [place] Urine Protein Urine Glucose (UA) Urine Ketones Urine Blood Urine Nitrite Ur Leukocyte Esterase Urine WBC (Auto) Urine RBC (Auto) 07/06/18 07/06/18 07/07/18 12:24 12:24 04:08 Creatine Kinase 385 H CK-MB (CK-2) 1.15 Troponin I 0.053 NT-Pro-B Natriuret Pep 1090 H Impressions: Chest X-Ray 07/06/18 00:00 IMPRESSION: Borderline cardiomegaly with mild pulmonary edema. Cannot exclude bibasilar pneumonia. Head CT 07/06/18 13:07 IMPRESSION: No acute intracranial pathology. EVIDENCE OF ACUTE STROKE: NO. Status: Imported from PACS Assessment and Plan - Diagnosis (1) Pneumonia Qualifiers: Laterality: bilateral Is this a current diagnosis for this admission?: Yes Plan: Community acquired PNA Bilateral infiltrates on CXR No ill contacts or recent travel Continue IV rocephin and azithromycin PRN Tylenol for pain or fever PRN nebulizer treatments for SOB Supplemental O2 to maintain SPO2> 93% (2) Acute encephalopathy Is this a current diagnosis for this admission?: Yes Plan: Secondary to infection and possibly mild rhabdomyolysis reports the patient has been increasingly more forgetful lately, maybe early signs of dementia This week, patient forgot the name of his , called her by daughter's name This morning, patient unable to answer any questions appropriately Encephalopathy will likely improve as infection clears Continue IV antibiotics and IVF (3) Rhabdomyolysis Qualifiers: Rhabdomyolysis type: traumatic Encounter type: initial encounter Qualified Code(s): T79.6XXA - Traumatic ischemia of muscle, initial encounter Is this a current diagnosis for this admission?: Yes Plan: Patient found down this morning by Approximate downtime is 2 hours CK 385 Bolused 1L IVF in ED Continue maintenance IVF Daily chemistries - watching creatinine and ck closely (4) Hyperlipidemia Is this a current diagnosis for this admission?: Yes Plan: PMH HLD Continue home dose medications (5) History of knee replacement Qualifiers: Laterality: bilateral Qualified Code(s): Z96.653 - Presence of artificial knee joint, bilateral Is this a current diagnosis for this admission?: Yes Plan: History of bilateral knee replacement by Dr Calhoun Patient recently treated with 6 wks of tetracycline for joint infection Mild chronic deformity to the knees but no signs of active infection - erythema, edema, tenderness, warm to touch Holding tetracycline for now, continue with IV abx for PNA - Time Time Spent with patient: 15-24 minutes Medications reviewed and adjusted accordingly: Yes Anticipated discharge: Home - Inpatient Certification Based on my medical assessment, after consideration of the patient's comorb idities, presenting symptoms, or acuity I expect that the services needed warrant INPATIENT care.: Yes I certify that my determination is in accordance with my understanding of Medicare's requirements for reasonable and necessary INPATIENT services [42 CFR 412.3e].: Yes Medical Necessity: Need for IV Antibiotics, Risk of Complication if Not Cared For in Hospital
[2018-07-07] MEDS ORDERED: GLUCOSAMINE HCL 1500 MG PO SCH (08:00)
[2018-07-07] MEDS ORDERED: LYCOP PO SCH (08:00)
[2018-07-07] MEDS ORDERED: VIT K PO SCH (08:00)
[2018-07-07] MEDS ORDERED: FOLIC PO SCH (08:00)
[2018-07-07] MEDS ORDERED: [UNRECOGNIZED DRUG - OTHER] PO SCH (08:00)
[2018-07-07] MEDS ORDERED: MULTIVIT MIN PO SCH (08:00)
[2018-07-07] MEDS: PANTOPRAZOLE SODIUM 40 MG TABLET.DR PO SCH (10:37)
[2018-07-07] MEDS: ASCORBIC ACID 500 MG TABLET PO SCH (10:37)
[2018-07-07] MEDS: DOCUSATE SODIUM 100 MG CAPSULE PO SCH ×2 (10:37→21:51)
[2018-07-07] MEDS: ENOXAPARIN SODIUM INJ 30 MG/0.3 ML DISP.SYRIN SUBCUT SCH (10:38)
[2018-07-07] MEDS: MULTIVITAMIN TABLET PO SCH (10:38)
[2018-07-07] MEDS: FAMOTIDINE 20 MG TABLET PO SCH ×2 (10:38→21:51)
[2018-07-07] MEDS: CHOLECALCIFEROL (D3) 1,000 UNIT TABLET PO SCH (10:38)
[2018-07-07] MEDS: CEFTRIAXONE 1 GM/D5W RTU 1 GM/50 ML RTUPB IV SCH (10:39)
[2018-07-07] MEDS ORDERED: FENTANYL 75 MCG/HR PATCH.TD72 TD SCH (14:15)
[2018-07-07] MEDS: NORMAL SALINE 1000 ML 1,000 ML IV PRN (15:16)
[2018-07-07] MEDS: OXYCODONE HCL IR 5 MG TABLET PO PRN ×2 (16:26→21:50)
[2018-07-07] MEDS: TAMSULOSIN HCL 0.4 MG CAP.SR.24H PO SCH (17:38)
[2018-07-07] MEDS: AZITHROMYCIN 500 MG in DEXTROSE 5%-WATER 250 ML IV SCH (17:38)
--- NOTE | 2018-07-07 18:30 | PDOC PROGRESS REPORT ---
Subjective Progress Note for:: 07/07/18 Subjective:: This is 73 years old male patient with past medical history of hypothyroidism, BPH, hyperlipidemia, GERD, PE and opiate dependence due to chronic pain syndrome brought by EMS after his found him minimally responsive and falling of the bed. His chest x-ray at admission reported as borderline cardiomegaly with mild pulmonary edema. Cannot exclude bibasilar pneumonia. With impression of bilateral pneumonia patient has been started on ceftriaxone and Zithromax. This morning I seen patient while sitting in bed. He is awake alert oriented is not in pain or any form of cardiorespiratory distress. Reason For Visit: PNEUMONIA Physical Exam Vital Signs: Temp Pulse Resp BP Pulse Ox 98.3 F 93 12 123/56 L 100 07/07/18 12:00 07/07/18 14:00 07/07/18 12:00 07/07/18 12:00 07/07/18 12:00 Intake & Output 07/06/18 07/07/18 07/08/18 06:59 06:59 06:59 Intake Total 400 1000 Output Total 1100 Balance -700 1000 Weight 116.1 kg General appearance: PRESENT: no acute distress, hard of hearing Head exam: PRESENT: atraumatic, normocephalic Eye exam: PRESENT: conjunctiva pink Mouth exam: PRESENT: moist Neck exam: ABSENT: carotid bruit, JVD, lymphadenopathy, thyromegaly Respiratory exam: PRESENT: crackles Cardiovascular exam: PRESENT: RRR. ABSENT: diastolic murmur, rubs, systolic murmur GI/Abdominal exam: PRESENT: normal bowel sounds, soft. ABSENT: distended, guarding, mass, organolmegaly, rebound, tenderness Neurological exam: PRESENT: alert, awake, oriented to time, oriented to situa tion Results Laboratory Results: 07/07/18 04:08 07/07/18 04:08 07/07/18 07/07/18 04:08 04:08 WBC 12.9 H RBC 3.07 L Hgb 8.5 L Hct 25.6 L MCV 83 MCH 27.7 MCHC 33.3 RDW 16.0 H Plt Count 300 Seg Neutrophils % 80.1 H Lymphocytes % 10.5 L Monocytes % 6.7 Eosinophils % 2.3 Basophils % 0.4 Absolute Neutrophils 10.4 H Absolute Lymphocytes 1.4 Absolute Monocytes 0.9 Absolute Eosinophils 0.3 Absolute Basophils 0.0 Sodium 137.6 Potassium 3.8 Chloride 106 Carbon Dioxide 24 Anion Gap 8 BUN 27 H Creatinine 1.08 Est GFR ( Amer) > 60 Est GFR (Non-Af Amer) > 60 Glucose 84 Calcium 9.9 Total Bilirubin 0.7 AST 75 H ALT 43 Alkaline Phosphatase 73 Total Protein 6.0 L Albumin 2.7 L 07/06/18 07/06/18 07/07/18 12:24 12:24 04:08 Creatine Kinase 385 H CK-MB (CK-2) 1.15 Troponin I 0.053 NT-Pro-B Natriuret Pep 1090 H Impressions: Chest X-Ray 07/06/18 00:00 IMPRESSION: Borderline cardiomegaly with mild pulmonary edema. Cannot exclude bibasilar pneumonia. Head CT 07/06/18 13:07 IMPRESSION: No acute intracranial pathology. EVIDENCE OF ACUTE STROKE: NO. Assessment and Plan - Diagnosis (1) Bilateral pneumonia Is this a current diagnosis for this admission?: Yes Plan: Continue ceftriaxone and Zithromax. (2) Acute encephalopathy Is this a current diagnosis for this admission?: Yes Plan: Probably due to pneumonia. (3) Rhabdomyolysis Qualifiers: Rhabdomyolysis type: non-traumatic Qualified Code(s): M62.82 - Rhabdomyolysis Is this a current diagnosis for this admission?: Yes (4) Hypothyroidism Qualifiers: Hypothyroidism type: acquired Qualified Code(s): E03.9 - Hypothyroidism, unspecified Is this a current diagnosis for this admission?: Yes Plan: Continue Synthroid (5) BPH (benign prostatic hyperplasia) Is this a current diagnosis for this admission?: Yes Plan: Flomax (6) Opiate dependence Is this a current diagnosis for this admission?: Yes Plan: Due to chronic pain. I renewed his fentanyl patch.
[2018-07-07] MEDS: SIMVASTATIN 10 MG TABLET PO SCH (21:51)
[2018-07-07] MEDS: LOSARTAN POTASSIUM 50 MG TABLET PO SCH (21:51)
[2018-07-07] MEDS: FENOFIBRATE NANOCRYSTALLIZED 145 MG TABLET PO SCH (21:51)
[2018-07-07] MEDS: PRAMIPEXOLE DI-HCL 0.25 MG TABLET PO SCH (21:51)
[2018-07-08] MEDS: ACETAMINOPHEN 325 MG TABLET PO PRN (04:37)
[2018-07-08] MEDS: LEVOTHYROXINE SODIUM 0.05 MG TABLET PO SCH (05:36)
[2018-07-08] MEDS: NORMAL SALINE 1000 ML 1,000 ML IV PRN (05:45)
[2018-07-08] MEDS: MULTIVITAMIN TABLET PO SCH (07:58)
[2018-07-08] MEDS: OXYCODONE HCL IR 5 MG TABLET PO PRN (07:58)
[2018-07-08] MEDS: ASCORBIC ACID 500 MG TABLET PO SCH (07:59)
[2018-07-08] MEDS: PANTOPRAZOLE SODIUM 40 MG TABLET.DR PO SCH (07:59)
--- NOTE | 2018-07-08 10:43 | PDOC DISCHARGE SUMMARY ---
General - Admit/Disc Date/PCP Admission Date/Primary Care Provider: 07/06/18 15:30 SHADE GARCÍA MD Discharge Date: 07/08/18 - Discharge Diagnosis (1) Bilateral pneumonia Is this a current diagnosis for this admission?: Yes (2) Acute encephalopathy Is this a current diagnosis for this admission?: Yes (3) Rhabdomyolysis Is this a current diagnosis for this admission?: Yes (4) Hypothyroidism Is this a current diagnosis for this admission?: Yes (5) BPH (benign prostatic hyperplasia) Is this a current diagnosis for this admission?: Yes (6) Opiate dependence Is this a current diagnosis for this admission?: Yes - Additional Information Resuscitation Status: Full Code Home Medications: Ascorbic Acid [Vitamin C] 1,000 mg PO QAM 07/06/18 Cholecalciferol (Vitamin D3) [Vitamin D3 2000 unit Tablet] 2,000 mg PO Q12 07/06/18 Cinnamon Bark [Cinnamon Bark 500 mg Capsule] 500 mg PO Q12 07/06/18 Docusate Sodium [Stool Softener] 100 mg PO Q12 07/06/18 Fenofibrate Nanocrystallized [Tricor 145 mg Tablet] 145 mg PO QHS 07/06/18 Fentanyl [Duragesic 75 Mcg/Hr Transdermal Patch] 75 mcg TD Q3D 07/06/18 Finasteride [Proscar 5 mg Tablet] 5 mg PO Q12 07/06/18 Fish Oil/Dha/Epa [Fish Oil 1,200 mg Fish Oil] 1 cap PO Q12 07/06/18 Gabapentin Enacarbil [Horizant] 600 mg PO Q12 07/06/18 Glucosamine HCl 1,500 mg PO QAM 07/06/18 Levothyroxine Sodium 50 mcg PO Q6AM 07/06/18 Meloxicam [Mobic] 15 mg PO QAM 07/06/18 Multivit-Min/Folic/Vit K/Lycop [Men's 50 Plus Multivitamin Tab] 1 tab PO QAM 07/06/18 Niacin 500 mg PO Q12 07/06/18 Oxycodone HCl 30 mg PO Q4HP PRN 07/06/18 Pantoprazole Sodium [Protonix [address] Tablet] 40 mg PO QAM 07/06/18 Pramipexole Di-HCl [Mirapex 0.25 mg Tablet] 0.25 mg PO QHS 07/06/18 Simvastatin [Zocor 10 mg Tablet] 10 mg PO QHS 07/06/18 Tamsulosin HCl [Flomax 0.4 mg Cap.sr] 0.4 mg PO QPM 07/06/18 Telmisartan [Micardis 80 mg Tablet] 80 mg PO QHS 07/06/18 Tetracycline HCl 500 mg PO QAM 07/06/18 History of Present Illness History of Present Illness: JAYLON GREEN is a 73 year old male with a PMH of HLD, GERD, PE (2014, not on a/c) bilateral knee replacements. He presented to [facility] via EMS after his found him minimally responsive and falling off the bed this morning. Per the , she left the house at 0830 and returned at 1030. When she came home, the patient was face down on the bed with the bottom half of his body on the ground and was very altered, unable to answer questions appropriately. This prompted her to call EMS. Upon arrival to [facility], head CT was normal. CXR revealed bilateral infiltrates (+) PNA. Laboratory studies reveal leukocytosis (WBC 12), with 93% neutrophils. CK was elevated 385. The patient was given IV Rocephin and admitted to the hospitalist service for community acquired PNA. Upon assessment, the patient is in bed on supplemental O2. According to the , he is very hard of hearing and he was not wearing his hearing aids. The patient opened his eyes to tactile stimuli but was unable to hear/answer questions. He quickly fell back asleep during the physical assessment. Lung sounds were coarse, no wheezing. No peripheral or central cyanosis. S1S2, palpable pulses in all extremities. +pedal edema. B/l knee replacement sites have healed over, R knee has some scabbing to the skin. Anterior lower extremities are erythematous and warm to touch. 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 Hospital Course Hospital Course: This is 73 years old male patient with past medical history of hypothyroidism, BPH, hyperlipidemia, GERD, PE and opiate dependence due to chronic pain syndrome brought by EMS after his found him minimally responsive and falling of the bed. His chest x-ray at admission reported as borderline cardiomegaly with mild pulmonary edema. Cannot exclude bibasilar pneumonia. With impression of bilateral pneumonia patient has been started on ceftriaxone and Zithromax. Patient seen resting in bed comfortably. He is awake alert oriented. His vital signs are within normal limits. Patient is eager to go home. Patient is stable enough to be discharged today. Continue h is home medications also send him with Levaquin 750 mg p.o. daily for 5 days. Physical Exam Vital Signs: Temp Pulse Resp BP Pulse Ox 98.2 F 81 24 H 135/77 H 97 07/08/18 07:53 07/08/18 07:53 07/08/18 07:53 07/08/18 07:53 07/08/18 07:53 Intake & Output 07/07/18 07/08/18 07/09/18 06:59 06:59 06:59 Intake Total 400 3600 Output Total 1100 2150 Balance -700 1450 Weight 116.1 kg 116 kg General appearance: PRESENT: no acute distress Head exam: PRESENT: atraumatic Eye exam: PRESENT: conjunctiva pink Mouth exam: PRESENT: moist Neck exam: ABSENT: carotid bruit, JVD, lymphadenopathy, thyromegaly Respiratory exam: PRESENT: clear to auscultation mark. ABSENT: rales, rhonchi, wheezes Cardiovascular exam: PRESENT: RRR. ABSENT: diastolic murmur, rubs, systolic murmur GI/Abdominal exam: PRESENT: normal bowel sounds, soft. ABSENT: distended, guarding, mass, organolmegaly, rebound, tenderness Results Laboratory Results: 07/07/18 04:08 07/07/18 04:08 07/06/18 07/06/18 07/07/18 12:24 12:24 04:08 Creatine Kinase 385 H CK-MB (CK-2) 1.15 Troponin I 0.053 NT-Pro-B Natriuret Pep 1090 H Impressions: Chest X-Ray 07/06/18 00:00 IMPRESSION: Borderline cardiomegaly with mild pulmonary edema. Cannot exclude bibasilar pneumonia. Head CT 07/06/18 13:07 IMPRESSION: No acute intracranial pathology. EVIDENCE OF ACUTE STROKE: NO. Qualifiers - * PATIENT BEING DISCHARGED WITH ANY OF THE FOLLOWING DIAGNOSIS: No
[2018-07-08] MEDS: CHOLECALCIFEROL (D3) 1,000 UNIT TABLET PO SCH (10:56)
[2018-07-08] MEDS: DOCUSATE SODIUM 100 MG CAPSULE PO SCH (10:56)
[2018-07-08] MEDS: CEFTRIAXONE 1 GM/D5W RTU 1 GM/50 ML RTUPB IV SCH (10:56)
[2018-07-08] MEDS: FAMOTIDINE 20 MG TABLET PO SCH (10:56)
[2018-07-08] MEDS: ENOXAPARIN SODIUM INJ 30 MG/0.3 ML DISP.SYRIN SUBCUT SCH (10:57)
[2018-07-08 12:49] VITALS: BP 140/71
== END 2018-07-08 13:05 | disposition home or self-care (01) | DRG 194 ==
LOC: ER 11:39 → EH 15:30 → 5 19:50
PROVIDERS: ADMIT Internal Medicine; ATTEND Internal Medicine
DX: J18.9 Pneumonia, unspecified organism (principal); F11.20 Opioid dependence, uncomplicated; G93.49 Other encephalopathy; M62.82 Rhabdomyolysis; N40.0 Benign prostatic hyperplasia without lower urinary tract symptoms; E78.5 Hyperlipidemia, unspecified; K21.9 Gastro-esophageal reflux disease without esophagitis; Z96.653 Presence of artificial knee joint, bilateral; E66.01 Morbid (severe) obesity due to excess calories; D64.9 Anemia, unspecified; M19.90 Unspecified osteoarthritis, unspecified site; G89.4 Chronic pain syndrome; Z23 Encounter for immunization; Z79.899 Other long term (current) drug therapy; Z86.711 Personal history of pulmonary embolism; Z87.891 Personal history of nicotine dependence; Z79.890 Hormone replacement therapy; Z82.49 Family history of ischemic heart disease and other diseases of the circulatory system
CPT/HCPCS: 36415; 51702; 70450; 71045; 80053; 81001; 82550; 82553; 83605; 83880; 84484; 85025; 85610; 87040; 87086; 90471; 90686; 93005; 93010; 96365; 99284; A9270-GY; G0008; J0456; J0696; J1650; J3490; J7030; J7060

== ENCOUNTER → 2018-07-14 | Outpatient (CLI) | payer MEDICARE, OTHER ==
--- NOTE | 2018-07-14 13:05 | RADIOLOGY REPORT (SQ) ---
EXAM DESCRIPTION: CHEST PA/LATERAL COMPLETED DATE/TIME: 07/14/2018 12:50 pm REASON FOR STUDY: PNEUMONIA, UNSPECIFIED ORGANISM,ALTERED MENTAL STATUS, UNSPECIFIED COMPARISON: 07/06/2018 EXAM PARAMETERS: NUMBER OF VIEWS: two views TECHNIQUE: Digital Frontal and Lateral radiographic views of the chest acquired. RADIATION DOSE: NA LIMITATIONS: none FINDINGS: LUNGS AND PLEURA: Interval resolution of the bilateral airspace disease in the mid and lo wer lungs. The lungs are clear. Mild hyperinflation of the lungs and flattening of the diaphragms. No pneumothorax or pleural effusion. MEDIASTINUM AND HILAR STRUCTURES: No masses or contour abnormalities. HEART AND VASCULAR STRUCTURES: The heart size has returned to normal. Interval resolution of pulmon sharri vascular congestion. BONES: No acute findings. HARDWARE: None in the chest. OTHER: No other significant finding. IMPRESSION: 1. Interval improvement since the prior examination dated 07/06/2018. Interval resoluti on of the bilateral airspace disease in the mid and lower lungs. 2. Interval resolution of the cardiomegaly and pulmonary vascular congestion. TECHNICAL DOCUMENTATION: JOB ID: [id number] [email or web address] Rights Reserved Reading location - IP/workstation name: [email or web address]
== END ==
LOC: OD 12:32
PROVIDERS: ATTEND Family Medicine
DX: J18.9 Pneumonia, unspecified organism (principal); R41.82 Altered mental status, unspecified
CPT/HCPCS: 71046

== ENCOUNTER → 2018-09-21 | Outpatient (CLI) | payer MEDICARE, OTHER ==
[2018-09-21 10:09] LABS: ANION GAP 8 (5-19); BLOOD UREA NITROGEN 29 mg/dL (7-20); CALCIUM 10.5 mg/dL (8.4-10.2); CARBON DIOXIDE 26 mmol/L (22-30); CHLORIDE 107 mmol/L (98-107); CHOLESTEROL 75.35 mg/dL (0-200); GLUCOSE 84 mg/dL (75-110); TRIGLYCERIDES 52 mg/dL (<150)
[2018-09-21 10:40] LABS: DIRECT LDL < 30 mg/dL (<100); PROSTATE SPECIFIC ANTIGEN < 0.060 ng/mL (<4.00)
== END ==
LOC: OD 09:03
PROVIDERS: ATTEND Family Medicine
DX: E78.2 Mixed hyperlipidemia (principal); Z79.899 Other long term (current) drug therapy; I10 Essential (primary) hypertension; N40.0 Benign prostatic hyperplasia without lower urinary tract symptoms
CPT/HCPCS: 36415; 80048; 80061; 83036; 84153; 84443

== ENCOUNTER → 2019-03-04 | Day surgery (SDC) | payer MEDICARE, OTHER ==
[~2019-03-04] MED LIST changes: +BUPIVACAINE HCL 0.5 % INJ/PF 30 ML SDV ONE; -BUPIVACAINE INJ/PF LIPOSOME/PF 266 MG/20 ML SDV IJ PRN; -CEFAZOLIN INJ 1 GM VIAL IV PRN; -IBUPROFEN 800 MG in DEXTROSE 5%-WATER 250 ML IV PRN; -IBUPROFEN 800 MG/NS 250 ML IV PRN; -LACTATED RINGERS 1000 ML IV PRN; -LANSOPRAZOLE 15 MG TAB.RAP.DR PO PRN; -LIDOCAINE 0.5% INJ-PF (5 MG/ML) 50 ML SDV SUBCUT PRN; +LIDOCAINE 1% INJ-PF (10 MG/ML) 30 ML SDV ONE; -OXYCODONE HCL SR 10 MG TABLET PO PRN; -VANCOMYCIN HCL 1,000 MG in DEXTROSE 5%-WATER 250 ML IV PRN
--- NOTE | 2019-03-04 09:33 | Operative Report ---
PROCEDURE: KNEE RADIOFREQUENCY bilateral under ultrasound guidance Preoperative Diagnosis: Bilateral knee osteoarthritis Postoperative Diagnosis: Bilateral knee osteoarthritis 1. Superolateral genicular branch from the vastus lateralis 2. Superomedial genicular branch from the vastus medialis 3. Inferomedial genicular branch from the saphenous nerve 4. Medial retinacular branch from the vastus intermedius DATE OF PROCEDURE: March 04, 2019 ANESTHESIA: Local anesthesia COMPLICATIONS: None reported PROCEDURE IN DETAIL: Hx/PE/meds/allergies/applicable labs reviewed. No changes and no contraindications were found. Full description of the procedure was provided including benefits as well as possible complications including transient increased pain, stomach irritation, mood alteration, transient weakness or parasthesias as well as more serious nerve injury, bleeding, infection or allergic reaction. Informed consent was obtained and documented. The patient was brought to the procedure room and placed on the exam table in a comfortable supine position. The place for needle placement was obtained by manual palpation with ultrasound confirmation. The sterile field was prepared by chloroprep and sterile drapes. Local anesthesia superficial and deep was provided by local infiltration of 2% lidocaine. A 17g 100 mm radiofrequency introducer needle with a 4 mm active tip was placed overlying the bilateral knee joint and using ultrasound guidance the needle was advanced to a bony endpoint on the superiolateral portion of the femoral condyle of the bilateral knee. A second needle was advanced to a bony endpoint on the superiomedial portion of the femoral condyle. A third needle was then placed over the inferiomedial portion of the tibial condyle until a bony endpoint was met. 4th needle placed 3mm above the patella with the tip in contact with the Medial retinacular branch from the vastus intermedius. Attempted aspiration yielded no blood. Transverse ultrasound views showed all the needles at 50% depth of the femur and tibia. Motor stimulation was tested at 2.0 volts with no leg movement. Images were saved in AP and lateral. A mixture consisting of 0.5% bupivacaine was slowly injected. Then a radiofrequency ablation of each of the geniculate nerves were done at 80 degrees Celsius for 2 minutes and 30 seconds each. The needles were withdrawn. The patient tolerated the procedure well. After observation the patient was discharged with instructions and follow up. They were also provided contact information to call regarding any concerning symptoms or questions. IMPRESSION: 1. Successful geniculate bilateral knee radiofrequency ablation was performed. 2. The patient was given prescription of home medicines. 3. RTC in 1-2 week(s).
== END ==
LOC: RAD 08:04
PROVIDERS: ATTEND Family Medicine
DX: M17.0 Bilateral primary osteoarthritis of knee (principal); Z96.651 Presence of right artificial knee joint
CPT/HCPCS: 64640 ×4; J3490 ×2

== ENCOUNTER → 2019-03-16 | Outpatient (CLI) | payer MEDICARE, OTHER ==
[2019-03-16 13:50] LABS: ABSOLUTE RETICS # 0.036 10^6/uL (0.028-0.122); HEMATOCRIT 33.1 % (37.9-51.0); HEMOGLOBIN 11.3 g/dL (13.5-17.0); MEAN CORPUSCULAR HEMOGLOBIN 29.5 pg (27.0-33.4); MEAN CORPUSCULAR HGB CONC 34.1 g/dL (32.0-36.0); MEAN CORPUSCULAR VOLUME 87 fl (80-97); PLATELET COUNT 449 10^3/uL (150-450); RED BLOOD COUNT 3.83 10^6/uL (4.35-5.55); RETICULOCYTE COUNT (AUTO) 0.93 % (0.66-2.85); WHITE BLOOD COUNT 9.1 10^3/uL (4.0-10.5)
== END ==
LOC: OD 12:55
PROVIDERS: ATTEND Family Medicine
DX: D64.9 Anemia, unspecified (principal); R06.02 Shortness of breath; R53.1 Weakness
CPT/HCPCS: 36415; 82607; 85027; 85045

== ENCOUNTER → 2019-08-19 | Outpatient (CLI) | payer MEDICARE, OTHER ==
[2019-08-19 17:16] LABS: ABSOLUTE BASOPHILS # (AUTO) 0.1 10^3/uL (0.0-0.2); ABSOLUTE EOSINOPHILS # (AUTO) 0.5 10^3/uL (0.0-0.6); ABSOLUTE LYMPHOCYTES (AUTO) 3.1 10^3/uL (0.5-4.7); ABSOLUTE MONOCYTES (AUTO) 0.7 10^3/uL (0.1-1.4); ABSOLUTE NEUT (AUTO) 7.1 10^3/uL (1.7-8.2); BASOPHILS % (AUTO) 0.8 % (0-2); EOSINOPHILS % (AUTO) 4.5 % (0-6); HEMOGLOBIN 10.8 g/dL (13.5-17.0); LYMPHOCYTES % (AUTO) 27.1 % (13-45); MEAN CORPUSCULAR HEMOGLOBIN 29.8 pg (27.0-33.4); MEAN CORPUSCULAR HGB CONC 33.7 g/dL (32.0-36.0); MEAN CORPUSCULAR VOLUME 89 fl (80-97); MONOCYTES % (AUTO) 6.1 % (3-13); PLATELET COUNT 307 10^3/uL (150-450); RED BLOOD COUNT 3.61 10^6/uL (4.35-5.55); RED CELL DISTRIBUTION WIDTH 14.8 % (11.5-14.0); SEGMENTED NEUTROPHILS % (AUTO) 61.5 % (42-78); TOTAL CELLS COUNTED % (AUTO) 100 %; WHITE BLOOD COUNT 11.5 10^3/uL (4.0-10.5)
[2019-08-19 17:36] LABS: ANION GAP 5 (5-19); BLOOD UREA NITROGEN 29 mg/dL (7-20); CALCIUM 9.8 mg/dL (8.4-10.2); CARBON DIOXIDE 27 mmol/L (22-30); CHLORIDE 101 mmol/L (98-107); GLUCOSE 77 mg/dL (75-110); POTASSIUM 5.4 mmol/L (3.6-5.0)
[2019-08-19 18:10] LABS: ERYTHROCYTE SEDIMENTATION RATE 47 mm/hr (0-20)
== END ==
LOC: OD 16:33
PROVIDERS: ATTEND Orthopaedic Surgery
DX: M25.50 Pain in unspecified joint (principal)
CPT/HCPCS: 36415; 80048; 85025; 85652; 86140

== ENCOUNTER → 2019-10-14 | Outpatient (CLI) | payer MEDICARE, OTHER ==
[2019-10-14 10:23] LABS: BLOOD UREA NITROGEN 22 mg/dL (7-20); CALCIUM 9.7 mg/dL (8.4-10.2); CHOLESTEROL 117.95 mg/dL (0-200); GLUCOSE 88 mg/dL (75-110); POTASSIUM 4.4 mmol/L (3.6-5.0); TRIGLYCERIDES 46 mg/dL (<150)
[2019-10-14 10:30] LABS: CARBON DIOXIDE 31 mmol/L (22-30); CHLORIDE 102 mmol/L (98-107)
[2019-10-14 10:52] LABS: ANION GAP 3 (5-19); DIRECT LDL < 30 mg/dL (<100)
[2019-10-14 10:53] LABS: PROSTATE SPECIFIC ANTIGEN < 0.060 ng/mL (<4.00)
== END ==
LOC: OD 08:28
PROVIDERS: ATTEND Family Medicine
DX: E78.2 Mixed hyperlipidemia (principal); I10 Essential (primary) hypertension; N40.0 Benign prostatic hyperplasia without lower urinary tract symptoms; Z79.899 Other long term (current) drug therapy
CPT/HCPCS: 36415; 80048; 80061; 83036; 84153; 84443

== ENCOUNTER → 2020-03-02 | Day surgery (SDC) | payer MEDICARE, OTHER ==
--- NOTE | 2020-03-02 11:13 | Operative Report ---
PROCEDURE: 1. Right articular branch of femoral nerve radiofrequency denervation 2. Right articular branch of obturator nerve radiofrequency denervation Preoperative Diagnosis: Right osteoarthritis Hip Postoperative Diagnosis: Right osteoarthritis Hip DATE OF PROCEDURE: March 02, 2020 ANESTHESIA: Local anesthesia COMPLICATIONS: none reported PROCEDURE IN DETAIL: Hx/PE/meds/allergies/applicable labs reviewed. No changes and no contraindications were found. Full description of the procedure was provided including benefits as well as possible complications including transient increased pain, stomach irritation, mood alteration, transient weakness or parathesias as well as more serious nerve injury, bleeding, infection or allergic reaction. Informed consent was obtained and documented. The patient was brought to the procedure room and placed on the exam table in a comfortable supine position. The place for the needle placement was obtained by manual palpation with radiographic confirmation. The sterile field was prepared and sterile drapes. Local anesthesia superficial and deep was provided by local infiltration of 6 ml 1 % lidocaine. Using fluoroscopic guidance a 17g 150 mm radiofrequency needle with 4mm active tip was advanced to the anteromedial aspect of the extraarticular portion of the hip joint where the articular branch of the femoral nerve traverses until a bony endpoint is felt. Attempted aspiration yielded no blood. Motor testing was then performed with 2hz at 2 volts and no lower extremity motor stimulation was observed. 2 cc of .5 % marcaine was injected through the RF needle. A radiofrequency lesion of the articular branch of the femoral nerve was then performed at 80 degrees C for 2 min and 30 seconds. The needle was then withdrawn. A second needle was placed and using fluoroscopic confirmation with ULTRASOUND guidance the needle was advanced to the incisura of the acetabulum where the articular branch of the obturator nerve traverses until a bony endpoint was met. Attempted aspiration yielded no blood. Radiographs were made. Motor testing was then performed with 2hz at 2 volts and no lower extremity motor stimulation was observed. 2cc .5 % marcaine was injected through the RF needle. A radiofrequency lesion of the articular branch of the obturator nerve was then performed at 80 degrees C for 2 minutes and 30 seconds. The needle was then withdrawn. The patient tolerated the procedure well. After observation the patient was discharged with instructions and follow up. They were also provided contact information to call regarding any concerning symptoms or questions. IMPRESSION: 1. Successful radiofrequency ablations of the articular branches of the obturator and femoral nerves was performed. 2. Follow up in 1-2 weeks to assess the efficacy of the procedure. 3. Estimated Blood Loss: 0 4. Disposition: home
== END ==
LOC: RAD 11:11
PROVIDERS: ATTEND Family Medicine
DX: M16.11 Unilateral primary osteoarthritis, right hip (principal)
CPT/HCPCS: 64640 ×2; J3490 ×2

== ENCOUNTER 2020-04-14 14:10 | Emergency (ER) | payer MEDICARE, OTHER ==
--- NOTE | 2020-04-14 15:20 | ER Document Report ---
ED Medical Screen (RME) - General Stated Complaint: FLANK PAIN Time Seen by Provider: 04/14/20 15:09 Primary Care Provider: SEAMUS HERBERT DO [Primary Care Provider] - Follow up as needed Notes: Patient is a 75-year-old male presents emergency department after falling a week ago. reports that the patient fell and EMS was called. He refused to go to the hospital at that time. Patient states that he still is stiff and is not able to get around now. Denies any blood thinners. Patient is currently on Bactrim for an abscess to his right knee. Exam: Alert and oriented. I have greeted and performed a rapid initial assessment of this patient. A comprehensive ED assessment and evaluation of the patient, analysis of test results and completion of medical decision making process will be conducted by an additional ED providers. TRAVEL OUTSIDE OF THE [place] IN LAST 30 DAYS: No - Related Data Allergies/Adverse Reactions: No Known Allergies Allergy (Verified 01/05/18 09:25) Past Medical History - Past Medical History Cardiac Medical History: Reports: Hx Hypercholesterolemia, Hx Hypertension, Hx Pulmonary Embolism - 2014 Denies: Hx Atrial Fibrillation, Hx Congestive Heart Failure, Hx Heart Attack Pulmonary Medical History: Reports: Hx Pneumonia Denies: Hx Asthma - shortness of breath, Hx Bronchitis, Hx COPD, Hx Tuberculosis Neurological Medical History: Denies: Hx Cerebrovascular Accident, Hx Seizures, Hx Parkinson's Disease Endocrine Medical History: Reports: Hx Hypothyroidism. Denies: Hx Diabetes Mellitus Type 2 Renal/ Medical History: Reports: Hx Benign Prostatic Hyperplasia - nocturia x 2/night with urgency. Denies: Hx End Stage Renal Disease, Hx Peritoneal Dialysis GI Medical History: Reports: Hx Gastroesophageal Reflux Disease. Denies: Hx Hia jil Hernia Musculoskeltal Medical History: Reports Hx Arthritis, Denies Hx Systemic Lupus Erythematosus Skin Medical History: Reports Hx Cellulitis Psychiatric Medical History: Denies: Hx Dementia Traumatic Medical History: Denies: Hx Fractures Past Surgical History: Reports: Hx Nose Surgery, Hx Orthopedic Surgery - bilateral knee replacement, right rotator cuff, Other - Nasal/Sinus x2, vasectomy.. Denies: Hx Appendectomy, Hx Cholecystectomy, Hx Tonsillectomy - Immunizations Immunizations up to date: No Hx Diphtheria, Pertussis, Tetanus Vaccination: - Unsure Physical Exam - Vital signs Vitals: Temp Pulse Resp BP Pulse Ox 98.2 F 92 22 H 128/64 H 97 04/14/20 14:16 04/14/20 14:16 04/14/20 14:16 04/14/20 14:16 04/14/20 14:16 Course - Vital Signs Vital signs: Temp Pulse Resp BP Pulse Ox 98.2 F 92 22 H 128/64 H 97 04/14/20 14:16 04/14/20 14:16 04/14/20 14:16 04/14/20 14:16 04/14/20 14:16 Doctor's Discharge - Discharge Referrals: SEAMUS HERBERT DO [Primary Care Provider] - Follow up as needed
[2020-04-14 16:30] LABS: APPEARANCE,URINE CLEAR; BILIRUBIN,URINE NEGATIVE (NEGATIVE); COLOR,URINE YELLOW; GLUCOSE, URINE NEGATIVE (NEGATIVE); KETONES,URINE NEGATIVE (NEGATIVE); LEUKOCYTE ESTERASE,URINE NEGATIVE (NEGATIVE); NITRITE,URINE NEGATIVE (NEGATIVE); PROTEIN,URINE NEGATIVE (NEGATIVE); URINE SPECIFIC GRAVITY 1.017; UROBILINOGEN,URINE NEGATIVE mg/dL (<2.0)
--- NOTE | 2020-04-14 16:58 | RADIOLOGY REPORT (SQ) ---
EXAM DESCRIPTION: CT HEAD WITHOUT; CT CERVICAL SPINE WITHOUT; CT LUMBAR SPINE WITHOUT IMAGES COMPLETED DATE/TIME: 04/14/2020 4:44 pm REASON FOR STUDY: fall COMPARISON: See below. TECHNIQUE: Axial images acquired through the brain and cervical and lumbar spine without intravenous contrast. Images reviewed with brain, subdural, lung, soft tissue and bone windows. Reconstructed coronal and sagittal MPR images reviewed. Images stored on PACS. All CT scanners at this facility use dose modulation, iterative reconstruction, and/or weight based d osing when appropriate to reduce radiation dose to as low as reasonably achievable (ALARA). [facility]: Dose Right [facility]: CareDose [facility]: Dose Right [facility]: Teradose 4D [facility]: [employer] RADIATION DOSE: CT Rad equipment meets quality standard of care and radiation dose reduction techniq ues were employed. CTDIvol: 49.0 mGy. DLP: 986 mGy-cm.; CT Rad equipment meets quality standard of ca re and radiation dose reduction techniques were employed. CTDIvol: 23.6 mGy. DLP: 664 mGy-cm.; CT Rad equipment meets quality standard of care and radiation dose reduction techniques were employed. CTDI vol: 32.8 mGy. DLP: 1168 mGy-cm.mGy. LIMITATIONS: None. FINDINGS: Brain 07/06/2018 prior. No hemorrhage or mass or shift. No skull fracture. Orbits intact. Clear paranasal sinuses. Cervical spine No significant misalignment. No fracture. Soft tissues normal, no pneumothorax. 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 There is also some ankylosis in the upper C2-3 facets. Lumbar spine L4-5 grade 1 listhesis. Multilevel facet arthropathy. No suggestion of fracture or suspicious bone lesion. Soft tissues normal. IMPRESSION: 1. No acute intracranial abnormality. 2. Cervical spine degenerative and congenital changes. No acute abnormality. 3. Degenerative changes in the lumbar spine without acute abnormality. TECHNICAL DOCUMENTATION: JOB ID: [id number] Quality ID # [id number]: Final reports with documentation of one or more dose reduction techniques (e.g., Au tomated exposure control, adjustment of the mA and/or kV according to patient size, use of iterative reconstruction technique) 2010 [employer]- All Rights Reserved Reading location - IP/workstation name: [email or web address]
--- NOTE | 2020-04-14 16:58 | RADIOLOGY REPORT (SQ) ---
EXAM DESCRIPTION: CT HEAD WITHOUT; CT CERVICAL SPINE WITHOUT; CT LUMBAR SPINE WITHOUT IMAGES COMPLETED DATE/TIME: 04/14/2020 4:44 pm REASON FOR STUDY: fall COMPARISON: See below. TECHNIQUE: Axial images acquired through the brain and cervical and lumbar spine without intravenous contrast. Images reviewed with brain, subdural, lung, soft tissue and bone windows. Reconstructed coronal and sagittal MPR images reviewed. Images stored on PACS. All CT scanners at this facility use dose modulation, iterative reconstruction, and/or weight based d osing when appropriate to reduce radiation dose to as low as reasonably achievable (ALARA). [facility]: Dose Right [facility]: CareDose [facility]: Dose Right [facility]: Teradose 4D [facility]: [employer] RADIATION DOSE: CT Rad equipment meets quality standard of care and radiation dose reduction techniq ues were employed. CTDIvol: 49.0 mGy. DLP: 986 mGy-cm.; CT Rad equipment meets quality standard of ca re and radiation dose reduction techniques were employed. CTDIvol: 23.6 mGy. DLP: 664 mGy-cm.; CT Rad equipment meets quality standard of care and radiation dose reduction techniques were employed. CTDI vol: 32.8 mGy. DLP: 1168 mGy-cm.mGy. LIMITATIONS: None. FINDINGS: Brain 07/06/2018 prior. No hemorrhage or mass or shift. No skull fracture. Orbits intact. Clear paranasal sinuses. Cervical spine No significant misalignment. No fracture. Soft tissues normal, no pneumothorax. 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 There is also some ankylosis in the upper C2-3 facets. Lumbar spine L4-5 grade 1 listhesis. Multilevel facet arthropathy. No suggestion of fracture or suspicious bone lesion. Soft tissues normal. IMPRESSION: 1. No acute intracranial abnormality. 2. Cervical spine degenerative and congenital changes. No acute abnormality. 3. Degenerative changes in the lumbar spine without acute abnormality. TECHNICAL DOCUMENTATION: JOB ID: [id number] Quality ID # [id number]: Final reports with documentation of one or more dose reduction techniques (e.g., Au tomated exposure control, adjustment of the mA and/or kV according to patient size, use of iterative reconstruction technique) 2010 [employer]- All Rights Reserved Reading location - IP/workstation name: [email or web address]
--- NOTE | 2020-04-14 16:58 | RADIOLOGY REPORT (SQ) ---
EXAM DESCRIPTION: CT HEAD WITHOUT; CT CERVICAL SPINE WITHOUT; CT LUMBAR SPINE WITHOUT IMAGES COMPLETED DATE/TIME: 04/14/2020 4:44 pm REASON FOR STUDY: fall COMPARISON: See below. TECHNIQUE: Axial images acquired through the brain and cervical and lumbar spine without intravenous contrast. Images reviewed with brain, subdural, lung, soft tissue and bone windows. Reconstructed coronal and sagittal MPR images reviewed. Images stored on PACS. All CT scanners at this facility use dose modulation, iterative reconstruction, and/or weight based d osing when appropriate to reduce radiation dose to as low as reasonably achievable (ALARA). [facility]: Dose Right [facility]: CareDose [facility]: Dose Right [facility]: Teradose 4D [facility]: [employer] RADIATION DOSE: CT Rad equipment meets quality standard of care and radiation dose reduction techniq ues were employed. CTDIvol: 49.0 mGy. DLP: 986 mGy-cm.; CT Rad equipment meets quality standard of ca re and radiation dose reduction techniques were employed. CTDIvol: 23.6 mGy. DLP: 664 mGy-cm.; CT Rad equipment meets quality standard of care and radiation dose reduction techniques were employed. CTDI vol: 32.8 mGy. DLP: 1168 mGy-cm.mGy. LIMITATIONS: None. FINDINGS: Brain 07/06/2018 prior. No hemorrhage or mass or shift. No skull fracture. Orbits intact. Clear paranasal sinuses. Cervical spine No significant misalignment. No fracture. Soft tissues normal, no pneumothorax. 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 There is also some ankylosis in the upper C2-3 facets. Lumbar spine L4-5 grade 1 listhesis. Multilevel facet arthropathy. No suggestion of fracture or suspicious bone lesion. Soft tissues normal. IMPRESSION: 1. No acute intracranial abnormality. 2. Cervical spine degenerative and congenital changes. No acute abnormality. 3. Degenerative changes in the lumbar spine without acute abnormality. TECHNICAL DOCUMENTATION: JOB ID: [id number] Quality ID # [id number]: Final reports with documentation of one or more dose reduction techniques (e.g., Au tomated exposure control, adjustment of the mA and/or kV according to patient size, use of iterative reconstruction technique) 2010 [email or web address]- All Rights Reserved Reading location - IP/workstation name: [email or web address]
[2020-04-14 18:15] LABS: ABSOLUTE BASOPHILS # (AUTO) 0.1 10^3/uL (0.0-0.2); ABSOLUTE EOSINOPHILS # (AUTO) 0.5 10^3/uL (0.0-0.6); ABSOLUTE LYMPHOCYTES (AUTO) 1.2 10^3/uL (0.5-4.7); ABSOLUTE MONOCYTES (AUTO) 0.8 10^3/uL (0.1-1.4); ABSOLUTE NEUT (AUTO) 4.2 10^3/uL (1.7-8.2); BASOPHILS % (AUTO) 1.1 % (0-2); EOSINOPHILS % (AUTO) 6.7 % (0-6); HEMATOCRIT 28.5 % (37.9-51.0); HEMOGLOBIN 9.5 g/dL (13.5-17.0); LYMPHOCYTES % (AUTO) 17.8 % (13-45); MEAN CORPUSCULAR HEMOGLOBIN 27.3 pg (27.0-33.4); MEAN CORPUSCULAR HGB CONC 33.4 g/dL (32.0-36.0); MEAN CORPUSCULAR VOLUME 82 fl (80-97); PLATELET COUNT 267 10^3/uL (150-450); RED BLOOD COUNT 3.49 10^6/uL (4.35-5.55); RED CELL DISTRIBUTION WIDTH 14.8 % (11.5-14.0); SEGMENTED NEUTROPHILS % (AUTO) 62.4 % (42-78); TOTAL CELLS COUNTED % (AUTO) 100 %; WHITE BLOOD COUNT 6.7 10^3/uL (4.0-10.5)
--- NOTE | 2020-04-14 18:19 | ER Document Report ---
ED General - General Chief Complaint: Flank Pain Stated Complaint: FLANK PAIN Time Seen by Provider: 04/14/20 15:09 Primary Care Provider: SEAMUS HERBERT DO [Primary Care Provider] - Follow up as needed TRAVEL OUTSIDE OF THE [place] IN LAST 30 DAYS: No - HPI Notes: 74-year-old male presents with back pain. Patient had a fall 1 week ago. He had slipped over the [employer] dish, he fell backward like a tree, he did leave a dent in the wall on his way down. He did not go to the emergency department for evaluation at that time. For the past week he has been complaining of lower nydia k pain pain, feeling stiff, having trouble ambulating due to the pain. Just wants to sit around all day. He is on chronic oxycodone for knee pain. He is also on Bactrim for a right knee infection, being followed by orthopedics. - Related Data Allergies/Adverse Reactions: No Known Allergies Allergy (Verified 01/05/18 09:25) Past Medical History - General Information source: Patient - Social History Smoking Status: Never Smoker Frequency of alcohol use: None Drug Abuse: None Family History: Reviewed & Not Pertinent, Hypertension Patient has homicidal ideation: No - Past Medical History Cardiac Medical History: Reports: Hx Hypercholesterolemia, Hx Hypertension, Hx Pulmonary Embolism - 2014 Denies: Hx Atrial Fibrillation, Hx Congestive Heart Failure, Hx Heart Attack Pulmonary Medical History: Reports: Hx Pneumonia Denies: Hx Asthma - shortness of breath, Hx Bronchitis, Hx COPD, Hx Tuberculosis Neurological Medical History: Denies: Hx Cerebrovascular Accident, Hx Seizures, Hx Parkinson's Disease Endocrine Medical History: Reports: Hx Hypothyroidism. Denies: Hx Diabetes Mellitus Type 2 Renal/ Medical History: Reports: Hx Benign Prostatic Hyperplasia - nocturia x 2/night with urgency. Denies: Hx End Stage Renal Disease, Hx Peritoneal Dialysis GI Medical History: Reports: Hx Gastroesophageal Reflux Disease. Denies: Hx Hiatal Hernia Musculoskeletal Medical History: Reports Hx Arthritis, Denies Hx Systemic Lupus Erythematosus Skin Medical History: Reports Hx Cellulitis Psychiatric Medical History: Denies: Hx Dementia Traumatic Medical History: Denies: Hx Fractures Past Surgical History: Reports: Hx Nose Surgery, Hx Orthopedic Surgery - bilateral knee replacement, right rotator cuff, Other - Nasal/Sinus x2, vasectomy.. Denies: Hx Appendectomy, Hx Cholecystectomy, Hx Tonsillectomy - Immunizations Immunizations up to date: No Hx Diphtheria, Pertussis, Tetanus Vaccination: - Unsure Hx Pneumococcal Vaccination: 01/12/14 Review of Systems - Review of Systems Constitutional: No symptoms reported EENT: No symptoms reported Cardiovascular: No symptoms reported Respiratory: No symptoms reported Gastrointestinal: No symptoms reported Genitourinary: No symptoms reported Male Genitourinary: No symptoms reported Musculoskeletal: Back pain Skin: No symptoms reported Hematologic/Lymphatic: No symptoms reported Neurological/Psychological: denies: Weakness Physical Exam - Vital signs Vitals: Temp Pulse Resp BP Pulse Ox 98.2 F 92 22 H 128/64 H 97 04/14/20 14:16 04/14/20 14:16 04/14/20 14:16 04/14/20 14:16 04/14/20 14:16 - General General appearance: Appears well, Alert In distress: None - HEENT Head: Normocephalic, Atraumatic Extraocular movements intact: Yes Pupils: PERRL - Respiratory Breath sounds: Normal - Cardiovascular Rhythm: Regular Heart sounds: Normal auscultation - Abdominal Tenderness: Nontender - Back Back: Tender - Generalized lumbar area. No: CVA tenderness, Vertebra tenderness - Extremities General upper extremity: Normal ROM General lower extremity: Normal ROM - Neurological Neuro grossly intact: Yes Cognition: Normal Orientation: AAOx4 Speech: Normal Cranial nerves: Normal Cerebellar coordination: Normal Motor strength normal: LUE, RUE, LLE, RLE Sensory: Normal - Psychological Associated symptoms: Normal affect - Skin Skin Temperature: Warm Course - Re-evaluation Re-evalutation: 75-year-old male fall from standing 1 week ago, has had lower back pain/stiffness for the past week. On exam patient is alert, afebrile, hemodynamically stable. He does not have any midline lumbar tenderness. He has generalized tenderness to the lower back musculature and there are some hypertonicity to the muscles as well. He is neurologically intact, strength symmetric between his lower extremities and sensation intact as well. He underwent imaging evaluation through triage process. Negative head CT, negative C-spine CT, negative lumbar CT. However given his back pain and microscopic hematuria, will obtain CT abdomen to assure that no kidney injury or retroperitoneal hematoma is present. Will also get additional look at the pelvis bones, though he does not have any tenderness to the pelvis. 04/14/20 22:42 CT abdomen has resulted. There are no abnormalities to the abdominal organs. However there is an acute nondisplaced fracture of the right inferior pubic ramus. I updated patient and his on results. Patient states that he is s till in pain, therefore he cannot yet make a decision whether he wants to go home or come in for pain management. Patient is on high amount of narcotics at home. Have ordered 2 mg of Dilaudid to see if we can get him more comfortable 04/15/20 01:05 I was able to discuss with Dr. Mo[place], treatment is pain control. Patient reports his pain has markedly improved and he is ready to go home now. He actually has an upcoming orthopedic appointment next week. will bring up the fracture then. Return precautions given, stable time of discharge. - Vital Signs Vital signs: Temp Pulse Resp BP Pulse Ox 98.3 F 91 19 111/53 L 94 04/15/20 01:16 04/15/20 01:16 04/15/20 01:16 04/15/20 01:16 04/15/20 01:16 - Laboratory Results Result Diagrams: 04/14/20 17:48 04/14/20 17:48 Laboratory Results Interpreted: 04/14/20 04/14/20 04/14/20 15:50 17:48 17:48 RBC 3.49 L Hgb 9.5 L Hct 28.5 L RDW 14.8 H Eos % (Auto) 6.7 H Sodium 135.8 L Anion Gap 2 L BUN 25 H Alkaline Phosphatase 163 H Albumin 3.0 L Urine Blood SMALL H Critical Laboratory Results Reviewed: No Critical Results - Radiology Results Critical Radiology Results Reviewed: No Critical Results Discharge - Discharge Clinical Impression: Inferior pubic ramus fracture Qualifiers: Encounter type: initial encounter Fracture type: closed Laterality: right Qualified Code(s): S32.591A - Other specified fracture of right pubis, initial encounter for closed fracture Disposition: HOME, SELF-CARE Additional Instructions: At your orthopedic appointment next week, please discuss the nondisplaced fracture of the right inferior pubic rami. Treatment is symptomatic control. Please continue her usual home dose of pain medications. Return to the emergency department for any concerning worsening symptoms. Also please have close follow-up with your primary care doctor to address the small amount of blood that was seen in your urine. Referrals: KEON,SEAMUS A, DO [Primary Care Provider] - Follow up as needed
[2020-04-14 18:36] LABS: ALKALINE PHOSPHATASE 163 U/L (38-126); ASPARTATE AMINO TRANSFERASE 47 U/L (17-59); BILIRUBIN,DIRECT 0.4 mg/dL (0.0-0.4); BILIRUBIN,TOTAL 0.7 mg/dL (0.2-1.3); BLOOD UREA NITROGEN 25 mg/dL (7-20); CALCIUM 9.3 mg/dL (8.4-10.2); GLUCOSE 92 mg/dL (75-110); TOTAL PROTEIN 6.7 g/dL (6.3-8.2)
[2020-04-14] MEDS ORDERED: MORPHINE SULFATE 10 MG/ML INJ IV ONE (18:42)
[2020-04-14] MEDS ORDERED: METHOCARBAMOL INJ/PF 1000 MG/10 ML SDV IV ONE (18:42)
[2020-04-14 18:48] LABS: ANION GAP 2 (5-19); CARBON DIOXIDE 29 mmol/L (22-30); CHLORIDE 105 mmol/L (98-107)
[2020-04-14] MEDS ORDERED: SULFAMETHOXAZOLE/TRIMETHOPRIM 800-160 MG TABLET PO ONE (18:50)
--- NOTE | 2020-04-14 21:52 | RADIOLOGY REPORT (SQ) ---
CT ABDOMEN PELVIS WITH IV CONTRAST HISTORY: Bilateral flank pain and hematuria. Trauma. COMPARISON: None. TECHNIQUE: CT scan of the abdomen and pelvis was performed with IV contrast. This exam was performed according to our departmental dose-optimization program, which includes automated exposure control, adjustment of the mA and/or kV according to patient size and/or use of iterative reconstruction technique. FINDINGS: The lung bases are clear. No pleural or pericardial effusions. There is no hiatal hernia. There are gallstones seen in the gallbladder lumen but without surrounding inflammatory changes. The liver, spleen, pancreas, adrenal glands, and kidneys are unremarkable. No obstructing urinary stones or hydronephrosis. The pelvic organs are also unremarkable. The stomach and duodenum are unremarkable. The small bowel is normal without evidence of inflammation or obstruction. The appendix is also unremarkable. There is no evidence of acute diverticulitis. No intraperitoneal adenopathy, free fluid, or free air is identified. The aorta is normal caliber and contains atherosclerotic calcifications. There is an acute nondisplaced fracture of the right inferior pubic ramus. No acute fracture is seen in the lumbar spine. Grade 1 anterolisthesis of L4-L5 secondary to facet DJD. IMPRESSION: 1. Acute nondisplaced fracture of the right inferior pubic ramus. 2. No acute intra-abdominal findings.
[2020-04-14] MEDS ORDERED: HYDROMORPHONE HCL INJ/PF 2 MG/ML AMPULE IV ONE (22:39)
[2020-04-15 01:51] VITALS: BP 111/53
== END 2020-04-15 01:51 | disposition home or self-care (01) ==
LOC: ER 14:10
DX: S32.591A Other specified fracture of right pubis, initial encounter for closed fracture (principal); W01.0XXA Fall on same level from slipping, tripping and stumbling without subsequent striking against object, initial encounter; M47.812 Spondylosis without myelopathy or radiculopathy, cervical region; M47.816 Spondylosis without myelopathy or radiculopathy, lumbar region; R31.29 Other microscopic hematuria; I10 Essential (primary) hypertension; L02.415 Cutaneous abscess of right lower limb; M25.569 Pain in unspecified knee; Z79.891 Long term (current) use of opiate analgesic
CPT/HCPCS: 99285; 96375; 96365; 36415; 85025; 80053; 81001; 70450; 72125; 72131; 74177; J2800; J2270; J1170; A9270